=== PATIENT | female | born 1960 | race Caucasian/White ===

== ENCOUNTER 2020-04-04 16:36 | Outpatient (CLI) | payer OTHER, SELFPAY ==
--- NOTE | ~2020-04-04 | XR_ITS ---
EXAMINATION: XR knee RT 3V DATE: 04/04/2020 16:56 INDICATION: Right knee pain. TECHNIQUE: 3 views of right knee were obtained. COMPARISON: None. FINDINGS: Bone alignment is normal. No fracture. There is mild osteoarthritis of medial and patellofe moral compartments characterized by tiny marginal osteophytes. There is a small knee joint effusion. IMPRESSION: 1. Mild right knee osteoarthritis. 2. Small right knee joint effusion. Reviewed, dictated and finalized at location E.
== END 2020-04-04 16:37 | disposition home or self-care (01) ==
PROVIDERS: PCP Internal Medicine; Visit Provider Nurse Practitioner
DX: M25.561 Pain in right knee (principal); M17.11 Unilateral primary osteoarthritis, right knee; M25.461 Effusion, right knee
CPT/HCPCS: 73562

== ENCOUNTER 2020-05-30 16:34 | Outpatient (CLI) | payer OTHER, SELFPAY ==
--- NOTE | ~2020-05-30 | MR_ITS ---
EXAMINATION: MR knee RT wo con DATE: 05/30/2020 17:34 INDICATION: Medial meniscal tear presenting with right knee pain. TECHNIQUE: Magnetic resonance imaging (MRI) of the right knee was performed without intravenous contr ast. Sequences included coronal PD-weighted FSE, coronal PD-weighted FS FSE, sagittal T2-weighted FS E, sagittal PD-weighted FS FSE and axial PD weighted fat saturated FSE. COMPARISON: None. FINDINGS: Medial compartment: Medial meniscus is normal. Mild cartilage loss with chondral surface regularity along the anterior to central weightbearing medial femoral condyle and anterior half of the medial tibial plateau. Lateral compartment: Lateral meniscus is normal. Articular cartilage is normal. Patellofemoral compartment: Deep chondral fissuring at the central aspect of the medial patellar facet and at the inferior aspect of the medial trochlea. Ligaments and tendons: Thickening and mild increased signal at the proximal medial collateral ligament consistent with parti al tear. There is small amount of edema in the overlying fat although less than would be expected for an acute injury suggesting this is either subacute or chronic with coincidental edema. The fibular c ollateral ligament complex is normal. Mild tendinopathy of the distal quadriceps and proximal patella r tendons with moderate size associated patellar enthesophytes. The visualized medial and lateral ham string tendons as well as the iliotibial band are normal. Fluid: Minimal right knee joint effusion. No loose osteochondral bodies identified. Prepatellar subcutaneou s edema without discrete bursal fluid collection. Osseous/other: Normal marrow signal. No fracture or pathologic marrow replacing process. IMPRESSION: 1. Mild osteoarthritis with high-grade chondromalacia at the medial side of the patellofemoral compar tment and moderate grade chondromalacia in the medial compartment. 2. Age-indeterminate partial tear of the proximal medial collateral ligament most likely either subac sun'aq or chronic. Reviewed, dictated and finalized at location A. IMPRESSION: 1. 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 2. Age-indeterminate partial tear of the proximal medial collateral ligament mo st likely either subacute or chronic.
== END 2020-05-30 16:35 | disposition home or self-care (01) ==
PROVIDERS: PCP Internal Medicine; Visit Provider Orthopaedic Surgery
DX: S83.241A Other tear of medial meniscus, current injury, right knee, initial encounter (principal); M17.11 Unilateral primary osteoarthritis, right knee
CPT/HCPCS: 73721

== ENCOUNTER 2020-10-05 15:34 | Outpatient (CLI) | payer OTHER, SELFPAY ==
--- NOTE | ~2020-10-05 | MR_ITS ---
EXAMINATION: MR cervical spine wo con DATE: 10/05/2020 16:20 INDICATION: Cervical radiculopathy. TECHNIQUE: Magnetic resonance imaging (MRI) of the cervical spine was performed without intravenous c ontrast. Sequences included sagittal T2-weighted FSE, sagittal STIR FSE, sagittal T1-weighted FSE, ax ial MERGE, and axial T2-weighted FSE. COMPARISON: None FINDINGS: There is kyphosis of cervical spine. Vertebral body heights are normal. There is mildly dec reased disc height at C4-C5 and C5-C6. The spinal cord signal intensity is normal. There is a 2.1 cm nodule in right thyroid lobe. The following disc levels are specifically discussed: C2-C3: The disc does not extend beyond the endplate margin. There is mild left uncovertebral joint os teoarthritis. There is mild bilateral facet joint osteoarthritis. There is mild left neural foraminal stenosis. There is no central canal stenosis. C3-C4: The disc is bulging. There is mild bilateral uncovertebral joint osteoarthritis. There is mild bilateral facet joint osteoarthritis. There is mild bilateral neural foraminal stenosis. There is mi ld central canal stenosis with ventral indentation of spinal cord. C4-C5: The disc is bulging. There is severe bilateral uncovertebral joint osteoarthritis. There is se diogenes bilateral facet joint osteoarthritis. There is moderate right and mild left neural foraminal kendra nosis. There is mild central canal stenosis with ventral indentation of spinal cord. C5-C6: The disc is bulging. There is severe bilateral uncovertebral joint osteoarthritis. There is mi ld bilateral facet joint osteoarthritis. There is moderate right and mild left neural foraminal steno sis. There is moderate central canal stenosis with ventral and dorsal indentation of spinal cord. C6-C7: The disc is bulging. There is mild bilateral uncovertebral joint osteoarthritis. There is mild bilateral facet joint osteoarthritis. There is mild left neural foraminal stenosis. There is mild ce ntral canal stenosis. C7-T1: The disc does not extend beyond the endplate margin. There is no uncovertebral joint osteoarth ritis. There is mild bilateral facet joint osteoarthritis. There is no neural foraminal stenosis. The re is no central canal stenosis. IMPRESSION: 1. Moderate cervical spondylosis. Reviewed, dictated and finalized at location B. [employer]UDENT [employer]
== END 2020-10-05 15:35 | disposition home or self-care (01) ==
PROVIDERS: PCP Internal Medicine; Visit Provider Nurse Practitioner
DX: M47.23 Other spondylosis with radiculopathy, cervicothoracic region (principal); M48.03 Spinal stenosis, cervicothoracic region
CPT/HCPCS: 72141

== ENCOUNTER 2021-09-07 17:01 | Outpatient (CLI) | payer OTHER, SELFPAY ==
--- NOTE | ~2021-09-07 | XR_ITS ---
EXAMINATION: XR chest 2V 09/07/2021 17:13 INDICATION: Cough PROCEDURE: 2 view chest COMPARISON: 02/01/2021 FINDINGS: The lungs are clear. The cardiomediastinal silhouette is within normal limits. There are no pleural effusions. There is no pneumothorax suspected. IMPRESSION: 1: NO ACUTE CARDIOPULMONARY DISEASE. Reviewed, dictated and finalized at location A. [employer] SAL[employer] DIRECTOR
== END 2021-09-07 17:02 ==
PROVIDERS: PCP Internal Medicine; Visit Provider Internal Medicine
DX: R05.9 Cough, unspecified (principal)
CPT/HCPCS: 71046

== ENCOUNTER 2023-05-10 10:43 | Outpatient (CLI) | payer OTHER, SELFPAY ==
--- NOTE | 2023-05-10 | ECG_ITS ---
Measurements Intervals [place] Rate: 85 P: 35 CO: 136 QRS: -65 QRSD: 122 T: -3 QT: 378 QTc: 450 Interpretive Statements SINUS RHYTHM RIGHT BUNDLE BRANCH BLOCK LEFT ANTERIOR FASCICULAR BLOCK BASELINE WANDER- I, III, AVR, AVL, AVF ABNORMAL ECG COMPARED TO ECG 07/21/2019 13:33:33 NO SIGNIFICANT CHANGES Electronically Signed On 05-10-2023 12:44:05 CDT by Rihc Overton D.O.
[2023-05-10 11:24] LABS: Anion Gap 6 mmol/L (8-16); Blood Urea Nitrogen 16 mg/dL (7-17); Calcium 9.1 mg/dL (8.4-10.2); Carbon Dioxide 31 mmol/L (22-30); Chloride 102 mmol/L (98-107); Estimated Glomerular Filt Rate 56; Glucose 169 mg/dL (65-110); Potassium 4.1 mmol/L (3.4-5.0); Sodium 139 mmol/L (137-145)
== END 2023-05-10 10:44 | disposition home or self-care (01) ==
PROVIDERS: Visit Provider Orthopaedic Surgery
DX: Z01.818 Encounter for other preprocedural examination (principal); I45.2 Bifascicular block
CPT/HCPCS: 36415; 80048; 93005

== ENCOUNTER 2023-06-24 08:43 | Outpatient (CLI) | payer OTHER, SELFPAY ==
[2023-06-24 13:44] LABS: Basophils Percent Auto 0.5 % (0.2-1.2); Eosinophils Absolute Auto 0.1 K/mm3 (0-0.3); Eosinophils Percent Auto 1.3 % (0-4.4); Hematocrit 41.8 % (37.0-47.0); Hemoglobin 13.4 g/dL (12.0-15.0); Immature Granulocyte Absolute 0.01 K/mm3 (0.00-0.031); Immature Granulocyte Percent A 0.2 % (0-0.5); Lymphocytes Absolute Auto 2.16 K/mm3 (0.9-3.2); Lymphocytes Percent Auto 36.4 % (18.3-44.2); Mean Corpuscular HGB Conc 32.1 g/dl (32-36); Mean Corpuscular Hemoglobin 28.3 pg (26-34); Mean Corpuscular Volume 88.2 fl (80-100); Mean Platelet Volume 9.5 fl (7.4-10.4); Monocytes Absolute Auto 0.7 K/mm3 (0.1-0.6); Monocytes Percent Auto 11.5 % (2.6-8.5); Neutrophils Percent Auto 50.1 % (45.5-73.1); Platelet Count Result 294 k/mm3 (150-375); Red Blood Count 4.74 M/mm3 (4.2-5.4); Red Cell Distribution Width 13.6 % (11.5-14.5); White Blood Count 5.9 K/mm3 (4.5-10.0)
[2023-06-24 14:33] LABS: Creatinine Urine 269.3 mg/dL
[2023-06-24 14:36] LABS: Microalbumin Urine Random 10.9 mg/L (0-16.7)
[2023-06-24 16:27] LABS: Alanine Aminotransferase 17 U/L (6-35); Albumin Level 4.1 g/dL (3.5-5.1); Alkaline Phosphatase 109 U/L (38-126); Anion Gap 6 mmol/L (8-16); Aspartate Amino Transferase 26 U/L (14-36); Bilirubin,Total 0.6 mg/dL (0.2-1.3); Blood Urea Nitrogen 11 mg/dL (7-17); Calcium 8.6 mg/dL (8.4-10.2); Carbon Dioxide 29 mmol/L (22-30); Chloride 104 mmol/L (98-107); Cholesterol 183 mg/dL (0-200); Estimated Glomerular Filt Rate > 60; Glucose 117 mg/dL (65-110); HDL Direct 38 mg/dL; Potassium 4.2 mmol/L (3.4-5.0); Sodium 139 mmol/L (137-145); Triglycerides 65 mg/dL (<150)
[2023-06-24 16:38] LABS: LDL Cholesterol Direct 115 mg/dL
[2023-06-24 17:44] LABS: Vitamin D 25 Hydroxy 27.6 ng/mL
[2023-06-24 18:29] LABS: Hemoglobin A1C 6.5 % (<5.7)
== END 2023-06-24 08:44 | disposition home or self-care (01) ==
LOC: ANHGOSHLAB 08:45
PROVIDERS: PCP Internal Medicine; Visit Provider Nurse Practitioner
DX: E11.9 Type 2 diabetes mellitus without complications (principal); F41.9 Anxiety disorder, unspecified; Z78.0 Asymptomatic menopausal state
CPT/HCPCS: 36415; 80053; 80061; 82043; 82306; 83036; 84443; 85025

== ENCOUNTER 2023-10-08 16:54 | Outpatient (CLI) | payer OTHER, SELFPAY ==
[2023-10-08 17:50] LABS: Alanine Aminotransferase 16 U/L (6-35); Albumin Level 4.3 g/dL (3.5-5.1); Alkaline Phosphatase 113 U/L (38-126); Anion Gap 9 mmol/L (8-16); Aspartate Amino Transferase 21 U/L (14-36); Bilirubin,Total 0.8 mg/dL (0.2-1.3); Blood Urea Nitrogen 11 mg/dL (7-17); Calcium 8.8 mg/dL (8.4-10.2); Carbon Dioxide 27 mmol/L (22-30); Chloride 103 mmol/L (98-107); Cholesterol 142 mg/dL (0-200); Estimated Glomerular Filt Rate > 60; Glucose 116 mg/dL (65-110); HDL Direct 36 mg/dL; Potassium 3.8 mmol/L (3.4-5.0); Sodium 139 mmol/L (137-145); Triglycerides 74 mg/dL (<150)
[2023-10-08 17:55] LABS: MALB Creatinine Ratio 5.5 mg/g (0-30); Microalbumin Urine Random 16.7 mg/L (0-16.7)
[2023-10-08 17:55] LABS: Hemoglobin A1C 7.2 % (<5.7)
[2023-10-08 18:01] LABS: LDL Cholesterol Direct 78 mg/dL
[2023-10-08 18:06] LABS: Vitamin D 25 Hydroxy 14.5 ng/mL
== END 2023-10-08 16:55 | disposition home or self-care (01) ==
LOC: ANHLAB 16:55
PROVIDERS: PCP Internal Medicine; Visit Provider Nurse Practitioner
DX: E55.9 Vitamin D deficiency, unspecified (principal); E11.9 Type 2 diabetes mellitus without complications
CPT/HCPCS: 36415; 80053; 80061; 82043; 82306; 83036

== ENCOUNTER 2024-01-11 07:59 | Outpatient (CLI) | payer OTHER, SELFPAY ==
[2024-01-11 09:46] LABS: Vitamin D 25 Hydroxy 76.7 ng/mL
[2024-01-11 10:38] LABS: Hemoglobin A1C 7.4 % (<5.7)
== END 2024-01-11 08:00 | disposition home or self-care (01) ==
LOC: ANHLAB 08:00
PROVIDERS: PCP Internal Medicine; Visit Provider Nurse Practitioner
DX: E55.9 Vitamin D deficiency, unspecified (principal); E11.9 Type 2 diabetes mellitus without complications
CPT/HCPCS: 36415; 82306; 83036

== ENCOUNTER 2024-04-06 10:30 | Outpatient (CLI) | payer OTHER, SELFPAY ==
--- NOTE | ~2024-04-06 | MR_ITS ---
MRI of the right knee Clinical history: Lateral meniscus tear Technique: Coronal proton density and proton density-weighted images, sagittal proton-density and T2 fat-sat images, and axial proton-density fat-saturated images were acquired. Findings: Anterior and posterior cruciate ligaments are intact. Medial collateral ligament and the la teral collateral ligament complex are intact. Popliteus tendon is intact. There is a large radial tear at the posterior root of the medial meniscus. No lateral meniscal tear e vident. There is diffuse moderate to high-grade chondral thinning in the medial compartment. Remaining articu lar cartilage is relatively well-preserved. Bone marrow signals are intact. Extensor mechanism is intact. There is minimal joint effusion. No Camargo's cyst. Impression: Radial tear at the posterior root of the medial meniscus. Diffuse moderate to high-grade chondromalacia of the medial compartment. No lateral meniscal tear seen. Reviewed, dictated and finalized at [facility]. Impression: Radial tear at the posterior root of the medial meniscus. Diffuse moderate to high-grade chondromalacia of the medial compartment. No lateral meniscal tear seen.
== END 2024-04-06 10:31 | disposition home or self-care (01) ==
PROVIDERS: PCP Internal Medicine; Visit Provider Orthopaedic Surgery
DX: S83.281A Other tear of lateral meniscus, current injury, right knee, initial encounter (principal); X58.XXXA Exposure to other specified factors, initial encounter
CPT/HCPCS: 73721

== ENCOUNTER 2024-04-11 08:21 | Outpatient (CLI) | payer OTHER, SELFPAY ==
[2024-04-11 09:57] LABS: Anion Gap 7 mmol/L (4-12); Blood Urea Nitrogen 14 mg/dL (7-17); Calcium 8.7 mg/dL (8.4-10.2); Carbon Dioxide 26 mmol/L (22-30); Chloride 107 mmol/L (98-107); Estimated Glomerular Filt Rate 56; Glucose 104 mg/dL (65-110); Potassium 4.2 mmol/L (3.4-5.0); Sodium 140 mmol/L (137-145)
[2024-04-11 10:13] LABS: Creatinine Urine 115.8 mg/dL; Hemoglobin A1C 6.2 % (<5.7)
[2024-04-11 10:24] LABS: MALB Creatinine Ratio < 5.2 mg/g (0-30); Microalbumin Urine Random < 6.0 mg/L (0-16.7)
== END 2024-04-11 08:22 | disposition home or self-care (01) ==
LOC: ANHLAB 08:22
PROVIDERS: PCP Internal Medicine; Visit Provider Nurse Practitioner
DX: E11.9 Type 2 diabetes mellitus without complications (principal)
CPT/HCPCS: 36415; 80048; 82043; 83036

== ENCOUNTER 2024-05-20 12:59 | Outpatient (CLI) | payer OTHER, SELFPAY ==
--- NOTE | 2024-05-20 13:00 | ECG_ITS ---
Test Date: 2024-05-20 13:25:44 Measurements Intervals [place] Rate: 70 P: -12 NM: 117 QRS: -59 QRSD: 129 T: -11 QT: 436 QTc: 472 Interpretive Statements SINUS RHYTHM WITH SHORT NM INTERVAL LEFT AXIS DEVIATION RIGHT BUNDLE BRANCH BLOCK BASELINE ARTIFACT- I, II, III, AVR, AVL, AVF ABNORMAL ECG No previous ECG available for comparison Electronically Signed On 05-20-2024 13:31:10 CDT by Rich Overton D.O.
== END 2024-05-20 13:00 | disposition home or self-care (01) ==
PROVIDERS: PCP Nurse Practitioner; Visit Provider Orthopaedic Surgery
DX: Z01.818 Encounter for other preprocedural examination (principal); I10 Essential (primary) hypertension; I45.10 Unspecified right bundle-branch block; R94.31 Abnormal electrocardiogram [ECG] [EKG]
CPT/HCPCS: 93005

== ENCOUNTER 2024-05-25 00:32 | Day surgery (SDC) | payer OTHER, SELFPAY ==
[2024-05-20 08:31] VITALS: BMI 38.5
--- NOTE | 2024-05-20 08:40 | PC.NURSE ---
Report to the Outpatient Waiting Room, entrance under the green pavilion located off [facility], at time _0830_ on date _[id number]_. Planned Procedure Time: _1030_. Time changes happen often and if your time is changed the preop area will call you the afternoon before. - You and your visitor will be asked to self-screen and do not enter if you have any COVID symptoms. - A mask is optional within the hospital at this time. Patients may have clear liquids (water, carbonated beverages, clear teas, apple juice) until 3 hours prior to surgery with a maximum of 20 ounces. - No food from midnight until time of surgery Take the following medications with a SIP of water the morning of surgery: ____None DO NOT STOP ANY OF YOUR OTHER PRESCRIPTION MEDICATIONS PRIOR TO SURGERY ?EXCEPT THE FOLLOWING Medications to discontinue per physician Took last dose of [place]jaro and Vitamin D3 30-04-3414 Please no make-up, nail slovenian, hairspray, perfume, deodorant, or body powder the day of surgery. No jewelry (including any body piercings) or valuables the day of surgery, leave them at home. Please take a shower or bath the night before, or the morning of, surgery with an antibacterial soap. Wear comfortable, loose fitting clothing. - Jewelry must be removed prior to entering the operating room. Rings and piercings that are not removed may be cut off. - The hospital will not accept responsibility for valuables. - Please leave all valuables, including medications, at home the day of surgery. If you are going home after surgery, a licensed taxi truck driver must drive you home. - NO public transportation without another adult if you receive anesthesia. - We recommend that an adult stay with you for 24 hours following discharge. - We also recommend that you do not drive, make important decision, drink alcoholic beverages, or take any drugs that were not prescribed by your health care provider for at least 24 hours after your discharge time. Follow any additional instructions given to you from your surgeon. If you or anyone in your household have experienced Covid symptoms in the past week, please notify your surgeon or the nurse liaison at the phone number below for possible testing. Telephone instructions given to __Radha___and asked if any additional questions and then verbalized understanding. Patient advised to call surgeon office or pre surgery nurse liaison [phone] if any additional questions.
[2024-05-25] VITALS (10 sets, daily range): BP systolic 123–159; BP diastolic 57–88; PULSE 68–77; RESP 13–17; TEMP 36.3–36.4; O2SAT 94–100
--- NOTE | 2024-05-25 07:12 | PM.IMHP ---
H&P: HPI History of Present Illness Date/Time: 05/25/24 07:12 Chief Complaint: Patient presents the catching locking and pain of the right knee. She has a positive MRI scan that shows meniscal pathology. She would like to proceed without the scopic intervention of her right knee partial meniscectomy proceed as indicated. Review of Systems Musculoskeletal: Musculoskeletal: Reports arthralgias, Reports joint swelling and Reports stiffness [facility] Past Medical History Medical History Asthma Cervical radiculopathy Depression Diabetes mellitus H/O one miscarriage Hypertension Nerve damage Repair of arm 2007 Post-menopausal Tendonitis Ulnar neuropathy Surgical History Surgical History H/O section 1982 H/O right knee surgery History of cholecystectomy History of tonsillectomy 2004 Status post arthroscopic partial medial meniscectomy (~07/24/19) Left knee Family History Family History Mother Hypertension Family history of diabetes mellitus in first degree relative Esophageal cancer Father Family history of heart disease in male family member before age 55 Patient's father is Sibling Family history of heart disease in male family member before age 55 Other Diabetes mellitus Family history of congenital heart disease Family history of malignant neoplasm Social History Social History Smoking status: Never smoker Smoking end date: 10/28/79 Alcohol intake: never Substance use: never Substance use type: does not use Do You Feel Safe in your Home?: Yes Lack of Transportation: No Lack of Food: Never True Current Housing: I Have Housing Concerned About Future Housing: No Difficulty Paying Gas/Electric Bills: No Difficulty Paying for Meds: No Currently Unemployed: No Education: High School Diploma/GED Difficulty w/ Childcare or Family Care: No Living arrangements: with family Occupation/Education: occupation 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 Gender identity (if verbalized by the patient): Female Spiritual care concerns: No Meds Home Medications and Allergies Home Medications Medication Instructions Recorded Confirmed Type omeprazole 20 mg capsule,delayed 20 mg PO DAILY 05/30/23 05/20/24 History release atorvastatin 10 mg tablet 10 mg PO QHS #90 tabs 12/23/23 05/20/24 Rx fluticasone propionate 50 1 spray intranasal DAILY PRN 01/15/24 05/20/24 History mcg/actuation nasal Allergy Symptoms spray,suspension nystatin 100,000 unit/gram topical 1 applic topical BID #30 grams 01/15/24 05/20/24 Rx powder cholecalciferol (vitamin D3) 1,250 1,250 mcg PO WEEKLY #8 caps 02/18/24 05/20/24 Rx mcg (50,000 unit) capsule losartan 100 mg tablet 100 mg PO DAILY #90 tabs 02/18/24 05/20/24 Rx tirzepatide 5 mg/0.5 mL 5 mg (0.5 mL) subcut WEEKLY #2 mL 04/17/24 05/20/24 Rx subcutaneous pen injector (Mounjaro) sertraline 100 mg tablet 100 mg PO DAILY #90 tabs 05/19/24 05/20/24 Rx mupirocin 2 % topical ointment 1 applic topical BID PRN sores 05/20/24 05/20/24 History Allergies Allergy/AdvReac Type Severity Reaction Status Date / Time No Known Allergies Allergy Verified 05/20/24 08:29 Exam Narrative: On exam she is tender palpation medially. She has catching locking and pain in the right knee. With mechanical type symptoms. Neurologically she is intact. She walks with a mildly antalgic gait. Radiology Reports: Comments: Patient: Radha Grant MRI of the right knee Clinical history: Lateral meniscus tear Technique: Coronal proton density and proton density-weighted images, sagittal proton-density and T2 fat-sat images, and axial p
[2024-05-25] MEDS: ACETAMINOPHEN 500 MG TABLET 1000 MG PO (09:00)
[2024-05-25] MEDS: LACTATED RINGERS 1,000 ML 30 ML IV CONT ×2 (09:15→10:59)
--- NOTE | 2024-05-25 09:23 | WPDANESEPPF ---
Anes - Initial Pre Proc Eval Procedure: Operation Date: 05/25/24 10:30 Proposed Procedures p Right Knee Arthroscopy with Partial Medial Meniscectomy, Proceed As Indicated - Giovani Mehta MD Date/Time: 05/25/24 09:23 Surgeon: Giovani Mehta MD Pre Op Diagnosis: Medial Meniscus Tear Rt Knee Patient Data Age: 64 Gender: F Height: 1.63 m Weight: 101.8 kg Allergies Allergy/AdvReac Type Severity Reaction Status Date / Time No Known Allergies Allergy Verified 05/25/24 09:22 Home Medications Medication Instructions Recorded Confirmed Type omeprazole 20 mg capsule,delayed 20 mg PO DAILY 05/30/23 05/25/24 History release atorvastatin 10 mg tablet 10 mg PO QHS #90 tabs 12/23/23 05/25/24 Rx fluticasone propionate 50 1 spray intranasal DAILY PRN 01/15/24 05/25/24 History mcg/actuation nasal Allergy Symptoms spray,suspension nystatin 100,000 unit/gram topical 1 applic topical BID #30 grams 01/15/24 05/20/24 Rx powder cholecalciferol (vitamin D3) 1,250 1,250 mcg PO WEEKLY #8 caps 02/18/24 05/20/24 Rx mcg (50,000 unit) capsule losartan 100 mg tablet 100 mg PO DAILY #90 tabs 02/18/24 05/25/24 Rx tirzepatide 5 mg/0.5 mL 5 mg (0.5 mL) subcut WEEKLY #2 mL 04/17/24 05/20/24 Rx subcutaneous pen injector (Mounjaro) sertraline 100 mg tablet 100 mg PO DAILY #90 tabs 05/19/24 05/25/24 Rx mupirocin 2 % topical ointment 1 applic topical BID PRN sores 05/20/24 05/20/24 History Patient hx anesthesia problems: none Family hx anesthesia problems: none Results Review: All pre-operative results and documents have been reviewed as part of the pre-operative evaluation. [facility] Past Medical History Medical History (Updated 05/25/24 @ 09:23 by Edy Padilla DO) Asthma Cervical radiculopathy Depression Diabetes mellitus H/O one miscarriage Hyperlipidemia Hypertension Nerve damage Repair of arm 2007 Post-menopausal Tendonitis Ulnar neuropathy Surgical History Surgical History H/O section 1982 H/O right knee surgery History of cholecystectomy History of tonsillectomy 2004 Status post arthroscopic partial medial meniscectomy (~07/24/19) Left knee Family History Family History Mother Hypertension Family history of diabetes mellitus in first degree relative Esophageal cancer Father Family history of heart disease in male family member before age 55 Patient's father is Sibling Family history of heart disease in male family member before age 55 Other Diabetes mellitus Family history of congenital heart disease Family history of malignant neoplasm Social History Social History Smoking status: Never smoker Smoking end date: 10/28/79 Alcohol intake: never Substance use: never Substance use type: does not use Do You Feel Safe in your Home?: Yes Lack of Transportation: No Lack of Food: Never True Current Housing: I Have Housing Concerned About Future Housing: No Difficulty Paying Gas/Electric Bills: No Difficulty Paying for Meds: No Currently Unemployed: No Education: High School Diploma/GED Difficulty w/ Childcare or Family Care: No Living arrangements: with family Occupation/Education: occupation 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
--- NOTE | 2024-05-25 09:25 | WPDHPUPDATE1 ---
History and Physical Update Update Date/Time: 05/25/24 09:25 History and Physical has been reviewed, including an updated exam of the patient. There are NO changes in the patient's condition. Risks, benefits, and alternatives have been discussed and questions answered. Patient agrees to proceed with procedure.
[2024-05-25] MEDS: KETOROLAC 15 MG/ML VIAL (*BKC) IV PUSH (10:05)
[2024-05-25] MEDS: SCOPOLAMINE 1 MG PATCH 1 PATCH TRANSDERM (10:06)
[2024-05-25] MEDS: ceFAZolin 2 GM/D5W 50 ML 2 GM/50 ML BAG IVPB (10:15)
--- NOTE | 2024-05-25 10:50 | P.OP_ITS ---
Procedure Note - Detailed Date of Procedure 05/25/24 Pre-op Diagnosis Medial Meniscus Tear Rt Knee Post-op Diagnosis Same Procedure Performed Arthroscopy, Partial Meniscectomy Surgeon Giovani Mehta MD Anesthesia General Description of Procedure Patient brought to operating room # 8. An anesthetic was administered. The knee was sterilely prepped and draped in the usual manner. Standard portals were used. Superior medial portal was used for the outflow cannula, inferior lateral portal was used for the scope, inferior medial portal was used for the instruments. Arthroscopy was performed, the patellar femoral joint degenerative changes. The medial compartment showed a radial tear posteriorly. The lateral compartment showed fraying. The ACL was intact. Using baskets and vivek the meniscal tear was trimmed back to a stable base so the nothing further could be pulled into the joint. The plica wass debrided back. Any loose or delaminated fragments were gently trimmed to a stable base. At this point the instruments were withdrawn, sutures placed and patient left the operating room in sati sfactory condition. Estimated Blood Loss 5 Drains No Packing No Pathology None sent Complications No immediate complications Condition Stable Disposition PACU [facility] Billing Surgery - Charge Forward: Surgery Billing ([id number] Arthroscopy Partial Meniscectomy)
[2024-05-25] MEDS: fentaNYL CITRATE INJ (*CRX) 100 MCG/2 ML VIAL 25 MCG IV PUSH ×3 (11:16→11:46)
[2024-05-25] MEDS: oxyCODONE HCL (*CRX) 5 MG TAB IR PO (12:48)
== END 2024-05-25 13:27 | disposition home or self-care (01) ==
PROVIDERS: PCP Nurse Practitioner; Visit Provider Orthopaedic Surgery
PROC: (CPT 29870; principal; 2024-05-25 10:30)
DX: S83.241A Other tear of medial meniscus, current injury, right knee, initial encounter (principal); M94.261 Chondromalacia, right knee; I10 Essential (primary) hypertension; E11.9 Type 2 diabetes mellitus without complications; E78.2 Mixed hyperlipidemia; J45.909 Unspecified asthma, uncomplicated; F32.A Depression, unspecified; E66.9 Obesity, unspecified; Z68.38 Body mass index [BMI] 38.0-38.9, adult; Z79.85 Long-term (current) use of injectable non-insulin antidiabetic drugs; Z98.890 Other specified postprocedural states; Z90.49 Acquired absence of other specified parts of digestive tract; Z80.0 Family history of malignant neoplasm of digestive organs; Z82.49 Family history of ischemic heart disease and other diseases of the circulatory system; X58.XXXA Exposure to other specified factors, initial encounter
CPT/HCPCS: 29881; A9270; J0690; J1100; J1885; J2405; J2704; J3010; J7120

== ENCOUNTER 2024-09-26 09:04 | Outpatient (CLI) | payer OTHER, SELFPAY ==
[2024-09-26 09:23] LABS: Basophils Percent Auto 0.4 % (0.2-1.2); Eosinophils Absolute Auto 0.1 K/mm3 (0-0.3); Eosinophils Percent Auto 1.7 % (0-4.4); Hematocrit 42.7 % (37.0-47.0); Hemoglobin 13.7 g/dL (12.0-15.0); Immature Granulocyte Absolute 0.02 K/mm3 (0.00-0.031); Immature Granulocyte Percent A 0.4 % (0-0.5); Lymphocytes Absolute Auto 1.96 K/mm3 (0.9-3.2); Lymphocytes Percent Auto 36.4 % (18.3-44.2); Mean Corpuscular HGB Conc 32.1 g/dl (32-36); Mean Corpuscular Hemoglobin 27.7 pg (26-34); Mean Corpuscular Volume 86.3 fl (80-100); Mean Platelet Volume 9.1 fl (7.4-10.4); Monocytes Absolute Auto 0.6 K/mm3 (0.1-0.6); Monocytes Percent Auto 10.6 % (2.6-8.5); Neutrophils Absolute Auto 2.7 K/mm3 (1.3-6.7); Neutrophils Percent Auto 50.5 % (45.5-73.1); Platelet Count Result 321 k/mm3 (150-375); Red Blood Count 4.95 M/mm3 (4.2-5.4); Red Cell Distribution Width 14.1 % (11.5-14.5); White Blood Count 5.4 K/mm3 (4.5-10.0)
[2024-09-26 09:54] LABS: Alanine Aminotransferase 13 U/L (6-35); Albumin Level 4.4 g/dL (3.5-5.1); Alkaline Phosphatase 105 U/L (38-126); Anion Gap 6 mmol/L (4-12); Aspartate Amino Transferase 19 U/L (14-36); Bilirubin,Total 0.7 mg/dL (0.2-1.3); Blood Urea Nitrogen 8 mg/dL (7-17); Calcium 9.1 mg/dL (8.4-10.2); Carbon Dioxide 29 mmol/L (22-30); Chloride 104 mmol/L (98-107); Cholesterol 170 mg/dL (0-200); Estimated Glomerular Filt Rate > 60; Glucose 102 mg/dL (65-110); HDL Direct 42 mg/dL; Potassium 4.3 mmol/L (3.4-5.0); Sodium 139 mmol/L (137-145); Triglycerides 103 mg/dL (<150)
[2024-09-26 09:55] LABS: Hemoglobin A1C 5.6 % (<5.7)
[2024-09-26 10:00] LABS: Creatinine Urine 148.1 mg/dL
[2024-09-26 10:06] LABS: MALB Creatinine Ratio 9.2 mg/g (0-30); Microalbumin Urine Random 13.6 mg/L (0-16.7)
[2024-09-26 10:06] LABS: LDL Cholesterol Direct 76 mg/dL
[2024-09-26 10:17] LABS: Vitamin D 25 Hydroxy 35.8 ng/mL
== END 2024-09-26 09:05 | disposition home or self-care (01) ==
PROVIDERS: PCP Nurse Practitioner; Visit Provider Nurse Practitioner
DX: E11.9 Type 2 diabetes mellitus without complications (principal); E55.9 Vitamin D deficiency, unspecified
CPT/HCPCS: 36415; 80053; 80061; 82043; 82306; 83036; 85025

== ENCOUNTER 2024-11-02 20:20 | Emergency (ER) | payer OTHER, SELFPAY ==
[2024-11-02 20:42] VITALS: BP 119/79; PULSE 98; RESP 18; TEMP 36.4; O2SAT 98
--- NOTE | 2024-11-02 20:45 | ECG_ITS ---
Test Date: 2024-11-02 20:53:06 Measurements Intervals [place] Rate: 101 P: 27 NE: 137 QRS: -82 QRSD: 128 T: -5 QT: 371 QTc: 482 Interpretive Statements SINUS TACHYCARDIA RIGHT BUNDLE BRANCH BLOCK [120+ ms QRS DURATION, UPRIGHT V1, 40+ ms S IN I/aVL/V4/V5/V6] LEFT ANTERIOR FASCICULAR BLOCK [QRS AXIS <= -45, QR IN I, RS IN II] Compared to ECG 05/20/2024 13:25:44 SINUS TACHYCARDIA NOW PRESENT Electronically Signed On 11-04-2024 17:17:52 OYSTER T[employer]ER by Akanksha Lerma M.D.
[2024-11-02 21:39] LABS: Influenza A QL RT-PCR Negative (Negative); Influenza B QL RT-PCR Negative (Negative); RSV RNA, RT-PCR Negative (Negative); SARS-CoV-2 RNA PCR Negative (Negative)
[2024-11-02 23:05] LABS: Strep Group A RT-PCR NOT DETECTED (Negative)
[2024-11-02] MEDS: SODIUM CHLORIDE 0.9% IV 1,000 ML 999 ML IV CONT (23:25)
[2024-11-02 23:37] LABS: Basophils Percent Auto 0.5 % (0.2-1.2); Eosinophils Percent Auto 0.5 % (0-4.4); Hematocrit 42.4 % (37.0-47.0); Hemoglobin 14.6 g/dL (12.0-15.0); Immature Granulocyte Absolute 0.03 K/mm3 (0.00-0.031); Immature Granulocyte Percent A 0.4 % (0-0.5); Lymphocytes Absolute Auto 2.57 K/mm3 (0.9-3.2); Mean Corpuscular HGB Conc 34.4 g/dl (32-36); Mean Corpuscular Volume 81.2 fl (80-100); Mean Platelet Volume 9.3 fl (7.4-10.4); Monocytes Absolute Auto 0.8 K/mm3 (0.1-0.6); Monocytes Percent Auto 9.5 % (2.6-8.5); Neutrophils Absolute Auto 4.8 K/mm3 (1.3-6.7); Neutrophils Percent Auto 58.1 % (45.5-73.1); Platelet Count Result 320 k/mm3 (150-375); Red Blood Count 5.22 M/mm3 (4.2-5.4); Red Cell Distribution Width 13.6 % (11.5-14.5); White Blood Count 8.3 K/mm3 (4.5-10.0)
[2024-11-02 23:47] LABS: Alanine Aminotransferase 17 U/L (6-35); Albumin Level 4.3 g/dL (3.5-5.1); Alkaline Phosphatase 101 U/L (38-126); Anion Gap 9 mmol/L (4-12); Aspartate Amino Transferase 18 U/L (14-36); Bilirubin,Total 0.9 mg/dL (0.2-1.3); Blood Urea Nitrogen 14 mg/dL (7-17); Calcium 9.3 mg/dL (8.4-10.2); Carbon Dioxide 28 mmol/L (22-30); Chloride 100 mmol/L (98-107); Estimated CRCL calculation 63 ml/min; Estimated Glomerular Filt Rate > 60; Glucose 103 mg/dL (65-110); Potassium 3.5 mmol/L (3.4-5.0); Sodium 137 mmol/L (137-145)
[2024-11-02 23:54] LABS: Add Urine Microscopic? YES; Appearance Urine Cloudy (Clear); Bacteria Urine 1+ /hpf; Bilirubin Urine 2+ (Negative); Blood Urine Negative (Negative); Calcium Oxalate Crystals Urine Present /hpf; Color Urine Dark Yellow (Yellow); Glucose Urine UA Negative (Negative); Ketones Urine 1+ mg/dL (Negative); Leukocyte Esterase Ur 3+ LEU/UL (Negative); Need Manual Microscopic Reviewed; Nitrate Urine Negative (Negative); Protein Urine Trace mg/dL (Negative); Specific Grav Ur 1.031 (1.001-1.035); Squamous Epithelial Cell Urine Moderate /hpf (Few); WBC Urine 21-50 /hpf (0-3)
[2024-11-03 00:28] LABS: Procalcitonin 0.1 ng/mL
--- NOTE | 2024-11-03 00:32 | ED.GENADULT ---
HPI - General Adult General Chief complaint: Dizziness Stated complaint: Dizziness Time Seen by Provider: 11/02/24 22:56 History of Present Illness HPI narrative: Patient is a 64-year-old female who presents emergency department chief complaint dizziness patient reports she was seen at [place] had CT scans was given a prescription for meclizine patient reports she was told she may have fluid in her ear and also reports today she noticed that she had some lymphadenopathy in her neck. Related Data Home Medications ?Medication ?Instructions ?Recorded ?Confirmed ?Last Taken ?Type fluticasone propionate 50 1 spray intranasal DAILY PRN 01/15/24 10/15/24 Unknown History mcg/actuation nasal Allergy Symptoms spray,suspension mupirocin 2 % topical ointment 1 applic topical BID PRN sores 05/20/24 10/15/24 Unknown History nystatin 100,000 unit/gram topical 1 applic topical BID PRN 10/15/24 10/15/24 Unknown History powder omeprazole 20 mg capsule,delayed 20 mg PO DAILY PRN 10/15/24 10/15/24 Unknown History release Allergies Allergy/AdvReac Type Severity Reaction Status Date / Time No Known Allergies Allergy Verified 11/02/24 20:41 Review of Systems Review of Systems: A 10 system review of systems was completed on the patient and is negative except for what is stated in the HPI. Nursing and ancillary documentation was reviewed. [facility] Past Medical History Medical History Hyperlipidemia Diabetes mellitus Ulnar neuropathy Cervical radiculopathy H/O one miscarriage Asthma Nerve damage Repair of arm 2008 Tendonitis Depression Hypertension Post-menopausal Surgical History Surgical History History of cholecystectomy H/O right knee surgery Status post arthroscopic partial medial meniscectomy (~07/24/19) Left knee H/O section 1983 History of tonsillectomy 2003 Family History Family History Mother Hypertension Family history of diabetes mellitus in first degree relative Esophageal cancer Father Family history of heart disease in male family member before age 55 Patient's father is Sibling Family history of heart disease in male family member before age 55 Carcinoma of colon, Onset Age: 68 Sister Other Diabetes mellitus Family history of congenital heart disease Family history of malignant neoplasm Social History Social History Social History: Caffeine-tea daily Smoking status: Never smoker Second hand tobacco smoke exposure: No Alcohol intake: never Substance use: never Substance use type: does not use Do You Feel Safe in your Home?: Yes Lack of Transportation: No Lack of Food: Never True Current Housing: I Have Housing Concerned About Future Housing: No Difficulty Paying Gas/Electric Bills: No Difficulty Paying for Meds: No Currently Unemployed: No Education: High School Diploma/GED Difficulty w/ Childcare or Family Care: No Living arrangements: with family Occupation/Education: occupation 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 HEAD: Normocephalic, atraumatic. EYES: PERRLA and EOMI. ENT: Nares clear, no rhinorrhea or epistaxis. Mucous membranes dry. Left tympanic membrane is bulging NECK: Supple. CHEST: Clear to auscultation. No respiratory distress. HEART: Regular rate and rhythm. No murmur heard. Normal peripheral pulses. ABDOMEN: Soft, nontender, nondistended, normal active bowel sounds. EXTREMITIES: Normal range of motion. No edema. SKIN: Warm, dry, no rash. NEURO: No focal deficits. Alert and oriented x3. PSYCH: Normal mood and affect. Course Vital Signs Vital signs: Vital Signs Temperature 36.4 C L 11/02/24 20:42 Pulse Rate 98 11/02/24 20:42 Respiratory Rate 18 11/02/24 20:42 Blood Pressure 119/79 11/02/24 20:42 Pulse Oximetry 98 11/02/24 20:42 Oxygen Delivery Room Air 11/02/24 20:42 Temperature 36.4 C L 11/02/24 20:42 Pulse Rate 78 11/03/24 00:50 Respiratory Rate 18 11/02/24 20:42 Blood Pressure 144/83 H 11/03/24 00:50 Pulse Oximetry 98 11/02/24 20:42 Oxygen Delivery Room Air 11/02/24 20:42 Medical Decision Making MDM Narrative Medical decision making narrative: Differential diagnosis includes vertigo, UTI, otitis media Patient was started on IV fluids in the emergency department and feels much better after receiving a L of normal saline. Laboratory studies were obtained showed normal CBC normal CMP urinalysis showed evidence of UTI COVID flu RSV were negative strep was negative. Patient will be started on cefdinir and recommended to follow-up with her primary care provider Vital Signs Vital Signs: Vital Signs Temperature 36.4 C L 11/02/24 20:42 Pulse Rate 98 11/02/24 20:42 Respiratory Rate 18 11/02/24 20:42 Blood Pressure 119/79 11/02/24 20:42 Pulse Oximetry 98 11/02/24 20:42 Oxygen Delivery Room Air 11/02/24 20:42 Temperature 36.4 C L 11/02/24 20:42 Pulse Rate 78 11/03/24 00:50 Respiratory Rate 18 11/02/24 20:42 Blood Pressure 144/83 H 11/03/24 00:50 Pulse Oximetry 98 11/02/24 20:42 Oxygen Delivery Room Air 11/02/24 20:42 Lab Data 11/02/24 23:28 11/02/24 23:28 Labs: Lab Results 11/02/24 11/02/24 Range/Units 20:56 23:28 WBC 8.3 (4.5-10.0) K/mm3 RBC 5.22 (4.2-5.4) M/mm3 Hgb 14.6 (12.0-15.0) g/dL Hct 42.4 (37.0-47.0) % MCV 81.2 (80-100) fl MCH 28.0 (26-34) pg MCHC 34.4 (32-36) g/dl RDW 13.6 (11.5-14.5) % Plt Count 320 (150-375) k/mm3 MPV 9.3 (7.4-10.4) fl Immature Gran % (Auto) 0.4 (0-0.5) % Neut % (Auto) 58.1 (45.5-73.1) % Lymph % (Auto) 31.0 (18.3-44.2) % [place] % (Auto) 9.5 H (2.6-8.5) % Eos % (Auto) 0.5 (0-4.4) % Baso % (Auto) 0.5 (0.2-1.2) % Lymph # (Auto) 2.57 (0.9-3.2) K/mm3 [place] # (Auto) 0.8 H (0.1-0.6) K/mm3 Eos # (Auto) 0.0 (0-0.3) K/mm3 Baso # (Auto) 0.0 (0.0-0.1) K/mm3 Abs Immat Gran (auto) 0.03 (0.00-0.031) K/mm3 Absolute Neuts (auto) 4.8 (1.3-6.7) K/mm3 Absolute Nucleated RBC 0.000 (0.0-0.012) K/mm3 Nucleated RBC % 0.0 (0.0-0.2) % Sodium 137 (137-145) mmol/L Potassium 3.5 (3.4-5.0) mmol/L Chloride 100 (98-107) mmol/L Carbon Dioxide 28 (22-30) mmol/L Anion Gap 9 (4-12) mmol/L BUN 14 D (7-17) mg/dL Creatinine 0.85 (0.7-1.0) mg/dL Estim Creat Clear Calc 63 ml/min Estimated GFR > 60 (59 - ) Glucose 103 (65-110) mg/dL Calcium 9.3 (8.4-10.2) mg/dL Magnesium 2.0 (1.6-2.3) mg/dL Total Bilirubin 0.9 (0.2-1.3) mg/dL AST 18 (14-36) U/L ALT 17 (6-35) U/L Alkaline Phosphatase 101 (38-126) U/L Total Protein 8.0 (6.3-8.2) g/dL Albumin 4.3 (3.5-5.1) g/dL Procalcitonin 0.1 ng/mL Urine Color Dark yellow (Yellow) Urine Appearance Cloudy H (Clear) Urine pH 5.0 (5.0-9.0) Ur Specific [place] 1.031 (1.001-1.035) Urine Protein Trace (Negative) mg/dL Urine Glucose (UA) Negative (Negative) mg/dL Urine Ketones 1+ H (Negative) mg/dL Ur Blood (Man) Negative (Negative) Urine Nitrate Negative (Negative) Urine Bilirubin 2+ H (Negative) Urine Urobilinogen 1.0 (<2.0) mg/dL Add Ur Microanalysis Reviewed Leukocyte Esterase Rfl 3+ H (Negative) NAVI/UL Urine RBC 11-20 H (0-2) /hpf Urine WBC 21-50 H (0-3) /hpf Ur Squamous Epith Cells Moderate (Few) /hpf Calcium Oxalate Crystal Present (None) /hpf Urine Bacteria 1+ H /hpf Urine Casts 6-10 Influenza A (RT-PCR) Negative (Negative) Influenza B (RT-PCR) Negative (Negative) RSV (RT-PCR) Negative (Negative) SARS-CoV-2 RNA (RT-PCR) Negative (Negative) Group A Strep (PCR) Not detected (Negative) Discharge Plan Discharge Clinical Impression: Vertigo, UTI (urinary tract infection), Acute left otitis media Patient Disposition: Home, Self-Care Condition: Stable Instructions: Antibiotic Form, Urinary Tract Infection in Women (ED), Ear Infection (ED), Benign Paroxysmal Positional Vertigo (ED), Dizziness (ED) Patient Language: Romansh Prescriptions: New cefdinir 300 mg capsule 300 mg PO Q12H 10 Days Qty: 20 0RF ondansetron 4 mg tablet,disintegrating 4 mg PO Q8H PRN (Reason: nausea and vomiting) Qty: 10 0RF No Action omeprazole 20 mg capsule,delayed release(DR/EC) 20 mg PO DAILY PRN Rx Instructions: To be taken 30 minutes prior to dinner. fluticasone propionate 50 mcg/actuation spray,suspension 1 spray intranasal DAILY PRN (Reason: Allergy Symptoms) nystatin 100,000 unit/gram powder 1 applic topical BID PRN Mounjaro 15 mg/0.5 mL pen injector 15 mg subcut WEEKLY Qty: 2 3RF mupirocin 2 % ointment 1 applic topical BID PRN (Reason: sores) losartan 100 mg tablet 100 mg PO DAILY Qty: 90 1RF cholecalciferol (vitamin D3) 1,250 mcg (50,000 unit) capsule 1,250 mcg PO WEEKLY Qty: 8 0RF Rx Instructions: Saturday atorvastatin 10 mg tablet 10 mg PO QHS Qty: 90 1RF sertraline 100 mg tablet 100 mg PO DAILY Qty: 90 0RF Rx Instructions: Takes HS Follow-up/Referrals: Sameer Walsh, DO [Primary Care Provider] - Time of Disposition: 00:53
[2024-11-03 00:50] VITALS: BP 144/83; PULSE 78
[2024-11-03 00:51] VITALS: BP 155/88; PULSE 89
[2024-11-03 00:52] VITALS: BP 142/89; PULSE 107
[2024-11-03 00:56] VITALS: PULSE 81
[2024-11-03 01:13] VITALS: BP 146/83; PULSE 85; RESP 16; O2SAT 99
[2024-11-03 01:14] VITALS: BP 146/83; PULSE 85; RESP 16; TEMP 36.6; O2SAT 99
--- OUTSIDE RECORDS SUMMARY | 2024-11-09 06:33 | XMS_ITS | Encounter Summary ---
Author Organization [facility] Address [address] [place] [address] Care Team Providers Care E Commerce Specialist Name Role Phone Sameer Walsh DO Primary Care Provider [phone] Encounter Details Date Type Department Care Team (Latest Contact Info) Description 03/15/2016 Hospital Outpatient Visit Formerly [facility] [address] [place] [id number] Discharge Disposition: Home or Self Care Social History Tobacco Use Types Packs/Day Years Used Date Smoking Tobacco: Never Assessed Sex and Gender Information Value Date Recorded Sex Assigned at Not on file Gender Identity Not on file Sexual Orientation Not on file documented as of this encounter Miscellaneous Notes * Letter - ProviderGerard MD - 05/02/2018 10:51 AM CDT Letter Signed by Frazad Malloy RN on Author: Farzad Malloy RN Service: (none) Author Type: (none) Date of Service: Filed: Note Type: Letter Status: (Other) April 19, 2016 Radha Grant [address] [id number] Dear Radha Grant: The results of your recent laboratory test are as follows: MR BRAIN W/WO CONTRAST Narrative: EXAMINATION: Magnetic resonance imaging (MRI) of the brain without and with contrast HISTORY: 55-year-old female with right ear tingling. TECHNIQUE: MRI of the brain was performed prior to and following the uneventful administration of 10 mL Gadavist intravenous gadolinium contrast according to an internal auditory canal protocol. FINDINGS: No prior study is available for comparison. No evidence of acute cerebral infarction is seen. The ventricles are of normal size, shape, and morphology. No mass effect or midline shift is seen. No enhancing lesions are identified. The sella, posterior fossa, brainstem, craniocervical junction, and visualized cervical spine appear normal. The visualized paranasal sinuses are clear. Normal flow voids are demonstrated in the carotid arteries and basilar artery. The calvarium appears normal. The cerebellopontine angles and internal auditory canals appear normal. No enhancing lesions are identified along the course of the cranial nerve 7/8 complexes. The signal within the bony labyrinth appears normal on both sides. The mastoids appear normal. Meckel's cave and the cavernous sinuses appear normal. No abnormal signal or enhancing lesion is seen along the visualized portions of the trigeminal nerves. The orbits and optic chiasm appear normal. Impression: IMPRESSION: 1. No MRI findings to explain the patient's reported symptoms. This report was approved by Kalani Muniz M.D. on 03/15/2016 9:11 AM . I, Dr. VENKATA MCKEON M.D. have personally reviewed and interpreted this examination/study. This report was electronically signed by VENKATA MCKEON M.D. on 03/15/2016 9:23 AM . If you have any questions or concerns, please don't hesitate to call. Sincerely, Farzad Malloy RN * Addendum Note - Gerard Barth MD - 04/19/2016 1:47 PM CDT Addendum Note Signed by Farzad Malloy RN on 04/19/2016 1:47 PM Author: Farzad Malloy RN Service: (none) Author Type: Registered Nurse Date of Service: 04/19/2016 1:47 PM Filed: 04/19/2016 1:47 PM Note Type: Addendum Note Status: Signed Lumber Trimmer: Farzad Malloy RN (Registered Nurse) Encounter addended by: Farzad Malloy RN on: 04/19/2016 1:47 PM Documentation filed: Letters documented in this encounter Plan of Treatment Not on file documented as of this encounter Procedures Procedure Name Priority Date/Time Associated Diagnosis Comments MRI BRAIN WWO CONTRAST Routine 03/15/2016 7:47 AM CDT documented in this encounter Results * MRI BRAIN WWO CONTRAST (03/15/2016 7:47 AM CDT) Anatomical Region Laterality Modality Head Other Impressions 03/15/2016 9:23 AM CDT IMPRESSION: 1. No MRI findings to explain the patient's reported symptoms. This report was approved ??by Kalani Muniz M.D. ?? on 03/15/2016 9:11 AM . I, Dr. VENKATA MCKEON M.D. have personally reviewed and interpreted this examination/study. This report was electronically signed by VENKATA MCKEON M.D. ??on 03/15/2016 9:23 AM . Narrative 03/15/2016 9:23 AM CDT EXAMINATION: Magnetic resonance imaging (MRI) of the brain without and with contrast HISTORY: 55-year-old female with right ear tingling. TECHNIQUE: MRI of the brain was performed prior to and following the uneventful administration of 10 mL Gadavist intravenous gadolinium contrast according to an internal auditory canal protocol. FINDINGS: No prior study is available for comparison. No evidence of acute cerebral infarction is seen. The ventricles are of normal size, shape, and morphology. No mass effect or midline shift is seen. No enhancing lesions are identified. The sella, posterior fossa, brainstem, craniocervical junction, and visualized cervical spine appear normal. The visualized paranasal sinuses are clear. Normal flow voids are demonstrated in the carotid arteries and basilar artery. The calvarium appears normal. The cerebellopontine angles and internal auditory canals appear normal. No enhancing lesions are identified along the course of the cranial nerve 7/8 complexes. The signal within the bony labyrinth appears normal on both sides. The mastoids appear normal. Meckel's cave and the cavernous sinuses appear normal. No abnormal signal or enhancing lesion is seen along the visualized portions of the trigeminal nerves. The orbits and optic chiasm appear normal. Procedure Note Venkata Mckeon MD - 01/25/2018 EXAMINATION: Magnetic resonance imaging (MRI) of the brain without andwith contrast HISTORY: 55-year-old female with right ear tingling. TECHNIQUE: MRI of the brain was performed prior to and following theuneventful administration of 10 mL Gadavist intravenous gadoliniumcontrast according to an internal auditory canal protocol. FINDINGS: No prior study is available for comparison. No evidence of acute cerebral infarction is seen. The ventricles are ofnormal size, shape, and morphology. No mass effect or midline shift isseen. No enhancing lesions are identified. The sella, posterior fossa,brainstem, craniocervical junction, and visualized cervical spine appear normal. The visualized paranasal sinusesare clear. Normal flow voids are demonstrated in the carotid arteries andbasilar artery. The calvarium appears normal. The cerebellopontine angles and internal auditory canals appear normal. Noenhancing lesions are identified along the course of the cranial nerve 7/8complexes. The signal within the bony labyrinth appears normal on bothsides. The mastoids appear normal. Meckel's cave and the cavernous sinuses appear normal. No abnormalsignal or enhancing lesion is seen along the visualized portions of thetrigeminal nerves. The orbits and optic chiasm appear normal. IMPRESSION IMPRESSION: 1. No MRI findings to explain the patient's reported symptoms. This report was approved by Kalani Muniz M.D. on 03/15/2016 9:11AM . I, Dr. VENKATA MCKEON M.D. have personally reviewed and interpreted thisexamination/study. This report was electronically signed by VENKATA MCKEON M.D. on 03/15/20169:23 AM . Kiya Ewing MD MR ORDERABLES documented in this encounter Visit Diagnoses Diagnosis Trigeminal neuralgia Paresthesia of skin Disturbance of skin sensation documented in this encounter Care Teams E Commerce Specialist Relationship Specialty Start Date End Date Sameer Walsh DO PCP - General 09/13/15 documented as of this encounter
--- OUTSIDE RECORDS SUMMARY | 2024-11-09 06:33 | XMS_ITS | Encounter Summary ---
Author Organization [facility] Address [address] [place] [address] Care Team Providers Care Respiratory Care Assistant Name Role Phone Sameer Walsh DO Primary Care Provider Encounter Details Date Type Department Care Team (Latest Contact Info) Description 09/19/2020 11:59 PM ACETYLENE TORCH OPERATOR Hospital Encounter [facility] EEG/EMG [address] [place] [phone] Huy Figueroa MD [address] [place] [address] Discharge Disposition: Home or Self Care Social History Tobacco Use Types Packs/Day Years Used Date Smoking Tobacco: Never Alcohol Use Standard Drinks/Week Comments No 0 (1 standard drink = 0.6 oz pur e alcohol) Sex and Gender Information Value Date Recorded Sex Assigned at Not on file Gender Identity Not on file Sexual Orientation Not on file COVID-19 Exposure Response Date Recorded In the last month, have you been in contact with someone who was confirmed or suspected to have Coronavirus / COVID-19? No / Unsure 09/19/2020 2:38 PM ACETYLENE TORCH OPERATOR documented as of this encounter Medications at Time of Discharge Medication Sig Dispensed Refills Start Date End Date topiramate (TOPAMAX) 50 MG tablet Take 50 mg by mouth BID. 60 tablet 3 05/07/2016 documented as of this encounter Procedure Notes * Huy Figueroa MD - 09/20/2020 7:31 AM CSTProcedure(s): EMG Images from the original note were not included. [address] [address] Full Name: Radha Grant Procedure #: [id number] Gender: Female Date of : 1960 Visit Date: 09/19/2020 15:04 Age: 60 Years Examining Physician: Dr. Figueroa Referring Physician: Alina Weir Height: 5 feet 4 inch Reason for Test: Right upper ext 60-year-old woman reports right arm and hand pain for the last few months. Exam shows numbness of the digits 5 with normal muscle strength. Query ulnar neuropathy versus carpal tunnel syndrome versuscervical radiculopathy. SN[facility] Nerve / Sites Rec. Site Onset Lat Peak Lat PP Amp Segments Distance Peak Diff Velocity Temp. ms ms ??V mm ms m/s ??C R Ulnar - Digit V (Antidromic) 14 Wrist Dig V 2.8 3.5 23.5 Wrist - Dig V 140 50 35.3 Ref. <=3.1 >=5.0 Ref. >=44 A.Elbow - Wrist L Ulnar - Digit V (Antidromic) 14 Wrist Dig V 2.5 3.3 34.1 Wrist - Dig V 140 56 32.5 Ref. <=3.1 >=5.0 Ref. >=44 A.Elbow - Wrist R Median, Ulnar - Transcarpal comparison Median Palm Wrist 1.5 1.9 56.2 Median Palm - Wrist 80 55 35.6 Ref. <=2.2 >=40.0 Ref. >=53 Ulnar Palm Wrist 1.3 1.9 16.5 Ulnar Palm - Wrist 80 61 38 Ref. <=2.1 >=11.0 Ref. >=53 Median Palm - Ulnar Palm 0.00 38 Ref. <=0.40 R Median, Radial - Thumb comparison Median Wrist Thumb 2.1 2.7 28.5 Median Wrist - Thumb 100 48 36.1 Radial Wrist Thumb 1.4 1.9 18.1 Radial Wrist - Thumb 100 70 35.9 Median Wrist - Radial Wrist 0.79 35.9 Ref. <=0.50 MNC Nerve / Sites Muscle Latency Amplitude Segments Lat Diff Distance Velocity ms mV ms mm m/s R Median - APB Wrist APB 3.3 10.5 Wrist - APB 70 Ref. <=4.5 >=3.0 Ref. Elbow APB 6.8 10.3 Elbow - Wrist 3.6 200 56 Ref. Ref. >=48 R Ulnar - ADM Wrist ADM 2.7 12.3 Wrist - ADM 70 Ref. <=3.6 >=5.0 Ref. B.Elbow ADM 6.6 11.1 B.Elbow - Wrist 3.9 200 52 Ref. Ref. >=48 A.Elbow ADM 9.2 10.7 A.Elbow - B.Elbow 2.6 100 38 Ref. Ref. >=48 A.Elbow - Wrist 6.5 R Ulnar - FDI Wrist FDI 3.8 11.3 Wrist - FDI 70 B.Elbow FDI 7.5 10.4 B.Elbow - Wrist 3.7 200 54 Ref. Ref. >=49 A.Elbow FDI 9.9 10.0 A.Elbow - B.Elbow 2.5 100 41 Ref. Ref. >=49 A.Elbow - Wrist 6.2 EMG Summary Table Insertional Spontaneous Volitional MUAPs Muscle Nerve Roots Insertional Fib PSW Fasc Duration Amplitude Poly Config Recruitment R. Deltoid Axillary C5-C6 Normal None None None Normal Normal None Normal Normal R. Triceps brachii Radial C6-C8 Normal None None None Sl.Incr. Sl.Incr. Few Normal Reduced R. Flexor carpi radialis Median C6-C7 Normal None None None Sl.Incr. Sl.Incr. Few Normal Reduced R. First dorsal interosseous Ulnar C8-T1 Normal None None None Normal Normal None Normal Normal R. Flexor digitorum profundus, dig 4 & 5 Ulnar C8-T1 Normal None None None Normal Normal None Normal Normal R. C7 paraspinal Spinal C7- Normal 1+ None None Interpretation: 1- Bilateral ulnar antidromic sensory NCSs showed normal and symmetric SNAP amplitudes and normal conduction velocities. Prolonged peak latencies are likely technical due to low temperature. 2- The right median and ulnar palmar orthodromic mixed NCSs were normal with no significant difference in their peak latencies. 3- The right median and radial antidromic sensory SNAP peak latency comparison study showed prolonged median peak latency. 4- The right median motor NCS recorded from abductor pollicis brevis muscle showed normal distal latency, normal CMAP amplitudes and normal conduction velocity at the forearm segment. 5- The right ulnar motor NCS recorded from first dorsal interossei and abductor digiti minimi muscles showed normal distal latencies, normal CMAP amplitudes and normal conduction velocities at the forearm and slowed across the elbow segment. 6- Concentric Needle EMG of the above listed muscles showed 1+ Fibs/PSWs in the right C7 paraspinalmuscle along with high amplitude and broad motor unit action potentials associated with reduced recruitment patterns in the right triceps brachii and flexor carpi radialis muscles. Conclusions: The findings on this electrodiagnostic study are mostly consistent with a right sided ulnar neuropathy across the elbow with mainly demyelinating features. This conclusion is based on slowed conduction velocity of the right ulnar nerve across the elbow when recorded from both first dorsal interossei and abductor digiti minimi muscles. Normal needle EMG examination from a few ulnar innervated muscles argue against axonal loss. There is also electrodiagnostic evidence of right sided C7 radiculopathy based on active denervation associated with chronic reinnervation changes noted in a few muscles from the right upper extremity proximal and distally including right C7 paraspinal muscle. Relatively prolonged median peak latency when recorded from the right thumb is likely technical, however a very mild distal median neuropathy compatible with a very mild/equivocal carpal tunnel syndrome on the right side cannot be ruled out completely. Clinical and imaging correlations are suggested. Huy Figueroa MD, PhD YLENE TORCH OPERATOR documented in this encounter Plan of Treatment Scheduled Orders Name Type Priority Associated Diagnoses Orde r Schedule EMG WITH NERVE CONDUCTION STUDY Neurology Routine ONCE for 1 Occu rrences starting 09/19/2020 until 09/19/2020 documented as of this encounter Visit Diagnoses Not on filedocumented in this encounter Care Teams Respiratory Care Assistant Relationship Specialty Start Date End Date Sameer Walsh DO PCP - General 09/13/15 documented as of this encounter
--- OUTSIDE RECORDS SUMMARY | 2024-11-09 06:33 | XMS_ITS | Referral Summary ---
Author Organization [facility] Address [address] [facility] [place] [address] Care Team Providers Care Digging Machine Operator Name Role Phone Sameer Walsh DO Primary Care Provider [phone] [phone] [facility],non-owned Affiliates and Associated Physician Practices is amultiple site organization consisting of ambulatory clinics and hospital sitesin [place], [place] and [place]. This disclosure is being madepursuant to the Care Everywhere program and may not contain all information available regarding this patient. Last updated 18.[facility] Medications * Be aware that medications may not be up to date on this document. Alwaysverify current medications with the patient. Medication Sig Dispensed Refills Start Date End Date Status topiramate (TOPAMAX) 50 MG tablet Take 50 mg by mouth BID. 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 Other melanin hyperpigmentation 09/13/2015 Inflamed seborrheic keratosis 09/13/2015 Other seborrheic keratosis 09/13/2015 Other hypertrophic disorders of the skin 015 Exercise-induced bronchospasm 05/13/2013 Chronic rhinitis 05/13/2013 Obstructive sleep apnea 05/13/2013 Social History Tobacco Use Types Packs/Day Years Used Date Smoking Tobacco: Never Alcohol Use Standard Drinks/Week Comments No 0 (1 standard drink = 0.6 oz pur e alcohol) Sex and Gender Information Value Date Recorded Sex Assigned at Not on file Gender Identity Not on file Sexual Orientation Not on file Last Filed Vital Signs Vital Sign Reading Time Taken Comments Blood Pressure 151/96 05/07/2016 10:55 AM CDT Pulse 95 05/07/2016 10:55 AM CDT Temperature 36.4 ??C (97.6 ??F) 05/07/2016 1 0:55 AM CDT Respiratory Rate 18 05/07/2016 10:5 5 AM CDT Oxygen Saturation - - Inhaled Oxygen Concentration - - Weight 100.6 kg (221 lb 12.8 oz) 2015 10:55 AM CDT Height 162.6 cm (5' 4 ) 05/07/2016 10:5 5 AM CDT Body Mass Index 38.07 05/07/2016 10:55 AM CDT Plan of Treatment Not on file Care Teams Digging Machine Operator Relationship Specialty Start Date End Date Sameer Walsh DO PCP - General 09/13/15
--- OUTSIDE RECORDS SUMMARY | 2024-11-09 06:33 | XMS_ITS | CONTINUITY OF CARE DOCUMENT ---
Author Name jaquelin hammer Address Unknown Organization [facility] Office Address [address] [place] [address] [address] [place] [address] Phone [phone] Care Team Providers Care Pumping Station Engineer Name Role Phone Susi Manzanares MD Unavailable Susi Manzanares MD Unavailable INSURANCE PROVIDERS Payer name Policy type / Coverage type [place] red alliance party ID [id number] [id number] Other [id number]
--- OUTSIDE RECORDS SUMMARY | 2024-11-09 06:33 | XMS_ITS | Patient Health Summary ---
Author Organization [facility] Address [address] [facility] [place] [address] Care Team Providers Care Second Steward Name Role Phone NidiadashSameer shen DO Primary Care Provider [phone] Note from [facility],non-owned Affiliates and Associated Physician Practices is amultiple site organization consisting of ambulatory clinics and hospital sitesin [place], [place], [place] and [place]. This disclosure is being madepursuant to the Care Everywhere program and may not contain all information available regarding this patient. Last updated 18.[facility] Medications * Be aware that medications may not be up to date on this document. Alwaysverify current medications with the patient. * topiramate (TOPAMAX) 50 MG tablet(Started 05/07/2016) Take 50 mg by mouth BID. 3 refills left Active Problems Problem Noted Date Diagnosed Date [...] Mass Index 38.07 05/07/2016 10:55 AM CDT Procedures * MRI BRAIN WWO CONTRAST(Performed 03/15/2016) * CBC W AUTO DIFFERENTIAL(Performed 02/28/2016) * HEMOGLOBIN A1C(Performed 02/28/2016) * MARIA ELENA BLOOD SCREEN(Performed 02/28/2016) * COMPREHENSIVE METABOLIC PANEL(Performed 02/28/2016) * VIOLETTA STAINING PATTERNS REFLEXED(Performed 02/28/2016) * MARIA ELENA BLOOD SCREEN W/REFLEX TITER(Performed 02/28/2016) * CBC W AUTO DIFFERENTIAL(Performed 02/28/2016) Results * MRI BRAIN WWO CONTRAST (03/15/2016 [...] AM . Kiya Ewing MD MR ORDERABLES * (ABNORMAL) CBC W AUTO DIFFERENTIAL (02/28/2016 3:47 PM CDT) Only the most recent of2 resultswithin the time period is included. WBC 6.5 3.5 - 10.5 10? 3 /uL [facility] RBC 4.72 3.90 - 5.00 10? 6 /uL [facility] Hemoglobin 13.6 12.0 - 15.5 g/dL [facility] Hematocrit 40.2 35.0 - 45.0 % [facility] MCV 85.2 81.0 - 97.0 fL [facility] MCH 28.8 28.0 - 34.0 pg [facility] MCHC 33.8 32.0 - 36.0 g/dL [facility] Platelet Count 312 150 - 400 10? 3 /uL [facility] RDW-SD 39.4 36.0 - 50.0 fL [facility] RDW-CV 12.7 11.2 - 14.8 % [facility] MPV 9.3 9.3 - 12.8 fL [facility] Neutrophils % 36.9 35.0 - 70.0 % [facility] Lymphocytes % 48.4 19.7 - 55.1 % [facility] Monocytes % 11.6 3.0 - 15.0 % [facility] Eosinophils % 2.8 0.0 - 6.0 % [facility] Basophil % 0.3 0.0 - 1.5 % [facility] Neutrophils Absolute 2.4 1.6 - 7.0 10? 3 /uL [facility] Lymphocyte Absolute 3.1(H) 0.8 - 2.9 10? 3 /uL [facility] Monocytes Absolute 0.75(H) 0.14 - 0.66 10? 3 /uL [facility] Eosinophils Absolute 0.18 0.00 - 0.22 10? 3 /uL [facility] Basophils Absolute 0.02 0.00 - 0.06 10? 3 /uL [facility] Immature Granulocytes % 0.2 0.0 - 1.0 % [facility] Blood specimen (specimen) BLOOD SPECIMEN / Unknown 02/28/2016 3:47 PM CDT 02/28/2016 4:04 PM CDT Kiya Ewing MD LAB - HEMATOLOGY ORD ERABLES [address] [phone] * (ABNORMAL) MARIA ELENA BLOOD SCREEN (02/28/2016 3:47 PM CDT) MARIA ELENA Positive(A ) None Detected [facility] Venous blood specimen (specimen) 02/28/2016 3:47 PM CDT 02/28/2016 4:04 PM CDT Kiya Ewing MD LAB - CHEMISTRY ORDE RABLES [address] [phone] * HEMOGLOBIN A1C (02/28/2016 3:47 PM CDT) Hemoglobin A1c 5.8 4.4 - 6.3 % [facility] Estimated Average Glucose 120 mg/dL [facility] Comment: HbA1c Interpretation: Treatment target values recommended by ADA and other clinical organizations should be used to evaluate metabolic control in patients. Treatment Target Values: Normal : < 5.7% Pre-diabetes: 5.7-6.4% Diabetes: Equal to or greater than 6.5% Reference: [place] Diabetes Association Standards of Care in Diabetes -2014 In patients 70 years and older consider HbA1c target range of 7.0-7.5% Reference: ??Diabetes Mellitus in Older People: Position Statement on behalf of the International Association of Gerontology and Geriatrics (IAGG), the Diabetes Working Democrat for Older People (EDWPOP), and the International Task Force of Experts in Diabetes. ??Telly Morfin et al. J [place] [employer] Association. 2012 Test results diagnostic of diabetes should be repeated for confirmation. The Tosoh G8 assay for the measurement of HbA1c is a National Glycohemoglobin Standardization Program (NGSP)certified method. Results for patients with HbE disease should be interpreted with caution as this hemoglobinopathy has been shown to interfere with the Tosoh G8 assay. Blood specimen (specimen) BLOOD SPECIMEN / Unknown 02/28/2016 3:47 PM CDT 02/28/2016 4:04 PM CDT Kiya Ewing MD LAB - CHEMISTRY KANDY BLACK [facility] Organization Address City/State/ZIP Co de Phone Number [facility] [address] [phone] * (ABNORMAL) COMPREHENSIVE METABOLIC PANEL (02/28/2016 3:47 PM CDT) BUN 13 7 - 26 mg/dL [facility] Creatinine 0.9 0.6 - 1.2 mg/dL [facility] Sodium 140 136 - 145 mmol/L [facility] Potassium 3.9 3.5 - 4.5 mmol/L [facility] Chloride 104 98 - 107 mmol/L [facility] CO2 30(H) 22 - 29 mmol/L [facility] Glucose 108 70 - 115 mg/dL [facility] Calcium 9.4 8.4 - 10.2 mg/dL [facility] Protein Total 7.5 6.0 - 8.3 g/dL [facility] Albumin 3.7 3.4 - 5.0 g/dL [facility] Bilirubin Total 0.4 0.2 - 1.2 mg/dL [facility] Alkaline Phosphatase 91 40 - 150 Units/L [facility] ALT 14 0 - 55 Units/L [facility] AST 11 5 - 34 Units/L [facility] Anion Gap 10 8 - 18 [facility] BUN/Creatinine Ratio 14 7 - 23 [facility] Osmolality Calculated 276 270 - 300 mOsm/kg [facility] Albumin/Globulin Ratio 1.0(L) 1.1 - 2.3 [facility] eGFR >60 >60 mL/min/1.7 3 m2 [facility] Blood specimen (specimen) BLOOD SPECIMEN / Unknown 02/28/2016 3:47 PM CDT 02/28/2016 4:04 PM CDT Kiya Ewing MD LAB - CHEMISTRY KANDY Rivera Organization Address City/State/ZIP Co de Phone Number [facility] [place] [address], [facility] [phone] * (ABNORMAL) VIOLETTA STAINING PATTERNS REFLEXED (02/28/2016 3:47 PM CDT) Speckled Pattern 1:160(H) [facility] ([facility]) Note Comment [facility] (BEAKER) Venous blood specimen (specimen) BLOOD SPECIMEN / Unknown 02/28/2016 3:47 PM CDT 02/29/2016 10:18 AM CDT Narrative [facility] (BEAKER) - 03/01/2016 3:29 PM CDT A positive MARIA ELENA result may occur in healthy individuals or be associated with a variety of diseases. ??See interpre- tation below: Pattern ?Antigen Detected ??Suggested Disease Association ? Homogeneous ??DNA(ds,ss,), ?High titers - SLE (Smooth) ? Histone ? Speckled ? Sm, SOCIAL WORKER MASTERS, SCL-70, ??SLE,MCTD,Scleroderma,Sjogrens ? SS-A/SS-B ? Nucleolar ?SCL-70, PM-1/SCL ??High titers Scleroderma Poly- ? myositis/Scleroderma Overlap ? Centromere ?? Centromere ?PSS w/Crest syndrome variable ?? Kiya Ewing MD LAB - PATHOLOGY/CYTO LOGY ORDERABLES [facility] (thinkingphones) * MARIA ELENA BLOOD SCREEN W/REFLEX TITER (02/28/2016 3:47 PM CDT) MARIA ELENA IFA See patterns [facility] [employer] (thinkingphones) Comment: ? Negative ?? <1:80 ? Borderline ??1:80 ? Positive ?? >1:80 Venous blood specimen (specimen) BLOOD SPECIMEN / Unknown 02/28/2016 3:47 PM CDT 02/29/2016 10:18 AM CDT Narrative [facility] ([employer]) - 03/01/2016 3:29 PM CDT Performed at: ??01 - [facility] [address], [place], [place] ??[id number] Agricultural Produce Packer: Monico Wu PhD, Phone: ??[phone] Kiya Ewing MD LAB - CHEMISTRY KANDY BLACK [facility] (MELINDA) Care Teams Second Steward Relationship Specialty Start Date End Date Sameer Walsh DO PCP - General 09/13/15
--- OUTSIDE RECORDS SUMMARY | 2024-11-09 06:33 | XMS_ITS | Encounter Summary ---
Author Organization [facility] Address [address] [facility] [place] [address] Care Team Providers Care Patient Care Technician Name Role Phone Sameer Walsh DO Primary Care Provider [phone]- [phone] Encounter Details Date Type Department Care Team (Latest Contact Info) Description 03/15/2016 Hospital Outpatient Visit Historic [facility] [address] [place] [phone] Kiya Ewing MD [address] [phone] Discharge Disposition: Home or Self Care Social History Tobacco Use Types Packs/Day Years Used Date Smoking Tobacco: Never Assessed Sex and Gender Information Value Date Recorded Sex Assigned at Not on file Gender Identity Not on file Sexual Orientation Not on file documented as of this encounter Plan of Treatment Not on file documented as of this encounter Visit Diagnoses Not on filedocumented in this encounter Care Teams Patient Care Technician Relationship Specialty Start Date End Date Sameer Walsh DO PCP - General 09/13/15 documented as of this encounter
--- OUTSIDE RECORDS SUMMARY | 2024-11-09 06:33 | XMS_ITS | Clinical Summary ---
Author Organization [facility] Address [address] [facility] [place] [address] Care Team Providers Care Manager Women Name Role Phone Sameer Walsh DO Primary Care Provider [phone]- [phone] Source Comments [facility],non-owned Affiliates and Associated Physician Practices is amultiple site organization consisting of ambulatory clinics and hospital sitesin [place], [place], [place] and [place]. This disclosure is being madepursuant to the Care Everywhere program and may not contain all information available regarding this patient. Last updated 18.[facility] Medications * Be aware that medications may [...] Chronic rhinitis 05/13/2013 Obstructive sleep apnea 05/13/2013 Family History Medical History Relation Name Comments Heart Disease Father Status: Deceas ed Cancer - Skin, Melanoma Mother Stat us: Allergy (Severe) Other Son is oxana rgic to shellfish Asthma Other Both sons None Known Sister Migraines Status: Alive Relation Name Status Comments Father Mother Other Sister Migraines Social History Tobacco Use Types Packs/Day Years [...] 05/07/2016 10:55 AM CDT Plan of Treatment Health Maintenance Due Date Last Done Comments COLOGUARD (AGES 45-75) - COL ON CA SCREENING 1960 COLON MONITORING 1960 COLONOSCOPY - COLON CA SCREENING 1960 CT COLONOGRAPHY - COLON CA SCREENING 1960 Colorectal Cancer Screening 1960 FIT - COLON CA SCREENING 1960 FLEX SIG - COLON CA SCREENING 1960 LIPID TESTING 1960 MAMMOGRAM 1960 PAP SMEAR 1960 HIV SCREENING 1975 HEPATITIS C SCREENING 05/05/1978 DTAP/TDAP/TD VACCINES (1 - Tdap) 1979 PNEUMOCOCCAL VACCINE 50+ (1 of 1 - PCV) 2010 ZOSTER VACCINE (1 of 2) 2010 COVID-19 VACCINE ( - 2023-2 5 season) 2024 INFLUENZA VACCINE (#1) 2024 DEPRESSION SCREENING 10/28/2024 Respiratory Syncytial Virus (RSV) Vaccine Pt: or over 60 yrs (1 - 1-dose 75+ series) 2035 HEPATITIS B VACCINE Aged Out No longe r eligible based on patient's age to complete this topic HIB VACCINE Aged Out No longer eligi ble based on patient's age to complete this topic HPV VACCINE Aged Out No longer eligi ble based on patient's age to complete this topic MENINGOCOCCAL (Group B) VACCINE Aged Out No longer eligible based on patient's age to complete this topic MENINGOCOCCAL VACCINE Aged Out No sita kathy eligible based on patient's age to complete this topic PNEUMOCOCCAL VACCINE Aged Out No long er eligible based on patient's age to complete this topic Care Teams Manager Women Relationship Specialty Start Date End Date Sameer Walsh DO PCP - General 09/13/15
--- OUTSIDE RECORDS SUMMARY | 2024-11-09 06:33 | XMS_ITS | Encounter Summary ---
Author Organization [facility] Address [address] [facility] [place] [address] Care Team Providers Care Factory Machine Computer Operator Name Role Phone Sameer Walsh DO Primary Care Provider [phone]- [phone] Encounter Details Date Type Department Care Team (Latest Contact Info) Description 09/07/2020 Travel Social History Tobacco Use Types Packs/Day Years [...] or suspected to have Coronavirus / COVID-19? Unable to assess 09/07/2020 9:59 AM SONOGRAPHER documented as of this encounter Plan of Treatment Not on file documented as of this encounter Visit Diagnoses Not on filedocumented in this encounter Care Teams Factory Machine Computer Operator Relationship Specialty Start Date End Date Sameer Walsh DO PCP - General 09/13/15 documented as of this encounter
--- OUTSIDE RECORDS SUMMARY | 2024-11-09 06:33 | XMS_ITS | Encounter Summary ---
Author Organization [facility] Address [address] [place] [address] Care Team Providers Care Labor Employment Associate Name Role Phone KristenSameer moreland Primary Care Provider Encounter Details Date Type Department Care Team (Latest Contact Info) Description 02/28/2016 Hospital Outpatient Visit [facility] [address] [place] [id number] Kiya Ewing MD [address] [place] [id number] Discharge Disposition: Home or Self Care Social History Tobacco Use Types Packs/Day Years Used Date Smoking Tobacco: Never Assessed Sex and Gender Information Value Date Recorded Sex Assigned at Not on file Gender Identity Not on file Sexual Orientation Not on file documented as of this encounter Miscellaneous Notes * Letter - Kiya Ewing MD - 05/02/2018 10:52 AM CDT Letter Signed by Kiya Ewing MD on Author: Kiya Ewing MD Service: (none) Author Type: (none) Date of Service: Filed: Note Type: Letter Status: (Other) April 30, 2016 Radha Grant [address] [facility] [id number] Dear Radha Grant: The results of your recent laboratory test are as follows: CBC W/ DIFFERENTIAL Narrative: The following orders were created for panel order CBC w Differential. Procedure Abnormality Status --------- ------ CBC WITH DIFFERENTIAL[[id number]] Abnormal Final result Please view results for these tests on the individual orders. CBC WITH DIFFERENTIAL Result Value Ref Range WBC 6.5 3.5-10.5 10??3/uL RBC 4.72 3.90-5.00 10??6/uL Hemoglobin 13.6 12.0-15.5 g/dL Hematocrit 40.2 35.0-45.0 % MCV 85.2 81.0-97.0 fL MCH 28.8 28.0-34.0 pg MCHC 33.8 32.0-36.0 g/dL Platelet Count 312 150-400 10??3/uL RDW-SD 39.4 36.0-50.0 fL RDW-CV 12.7 11.2-14.8 % MPV 9.3 9.3-12.8 fL Neutrophil % 36.9 35.0-70.0 % Lymphocytes % 48.4 19.7-55.1 % Monocytes % 11.6 3.0-15.0 % Eosinophils % 2.8 0.0-6.0 % Basophil % 0.3 0.0-1.5 % Neutrophil Abs 2.4 1.6-7.0 10??3/uL Lymphocytes Abs 3.1 (*) 0.8-2.9 10??3/uL Monocytes Abs 0.75 (*) 0.14-0.66 10??3/uL Eosinophil Abs 0.18 0.00-0.22 10??3/uL Basophils ABS 0.02 0.00-0.06 10??3/uL Immature Granulocyte % 0.2 0.0-1.0 % COMPREHENSIVE METABOLIC PANEL Result Value Ref Range BUN 13 7-26 mg/dL Creatinine 0.9 0.6-1.2 mg/dL Sodium 140 136-145 mmol/L Potassium 3.9 3.5-4.5 mmol/L Chloride 104 98-107 mmol/L Carbon Dioxide 30 (*) 22-29 mmol/L Glucose 108 70-115 mg/dL Calcium 9.4 8.4-10.2 mg/dL Total Protein 7.5 6.0-8.3 g/dL Albumin 3.7 3.4-5.0 g/dL Total Bilirubin 0.4 0.2-1.2 mg/dL Alkaline Phosphatase 91 40-150 Units/L ALT 14 0-55 Units/L AST 11 5-34 Units/L Anion Gap 10 8-18 BUN/Creatinine Ratio 14 7-23 Calculated Osmolality 276 270-300 mOsm/kg A/G Ratio 1.0 (*) 1.1-2.3 Est. Glomerular Filtration Rate >60 >60 mL/min/1.73 m2 MARIA ELENA Result Value Ref Range MARIA ELENA Screen Positive (*) None Detected HEMOGLOBIN A1C Result Value Ref Range Hemoglobin A1C 5.8 4.4-6.3 % Estimated Average Glucose 120 MARIA ELENA IFA SCREEN TITER PATTERN Result Value Ref Range Antinuclear Antibodies, IFA See patterns Narrative: Performed at: [address] [id number] Bulb Grader: Monico Wu PhD, Phone: [phone] REFLEX VIOLETTA STAINING PATTERNS Result Value Ref Range SPECKLED PATTERN 1:160 (*) NOTE Comment Narrative: A positive MARIA ELENA result may occur in healthy individuals or be associated with a variety of diseases. See interpre- tation below: Pattern Antigen Detected Suggested Disease Association Homogeneous DNA(ds,ss,), High titers - SLE (Smooth) Histone Speckled Sm, RESOURCE MANAGER, SCL-70, SLE,MCTD,Scleroderma,Sjogrens SS-A/SS-B Nucleolar SCL-70, PM-1/SCL High titers Scleroderma Poly- myositis/Scleroderma Overlap Centromere Centromere PSS w/Crest syndrome variable Essentially normal results.If you have any questions or concerns, please don't hesitate to call. Sincerely, Kiya Ewign MD * Addendum Note - Kiya Ewing MD - 04/30/2016 1:04 PM CDT Addendum Note Signed by Kiya Ewing MD on 04/30/2016 1:04 PM Author: Kiya Ewing MD Service: (none) Author Type: Physician Date of Service: 04/30/2016 1:04 PM Filed: 04/30/2016 1:04 PM Note Type: Addendum Note Status: Signed Stationary Fireman: Kiya Ewing MD (Physician) Encounter addended by: Kiya Ewing MD on: 04/30/2016 1:04 PM Documentation filed: Letters documented in this encounter Plan of Treatment Not on file documented as of this encounter Procedures Procedure Name Priority Date/Time Associated Diagnosis Comments CBC W AUTO DIFFERENTIAL Routine 02/28/2016 3:47 PM CDT MARIA ELENA BLOOD SCREEN Routine 02/28/2016 3:47 PM CDT HEMOGLOBIN A1C Routine 02/28/2016 3:47 PM CDT COMPREHENSIVE METABOLIC PANEL Routine 02/28/2016 3:47 PM CDT VIOLETTA STAINING PATTERNS REFLEXED MIR 02/28/2016 3:47 PM CDT MARIA ELENA BLOOD SCREEN W/REFLEX TITER MIR 02/28/2016 3:47 PM CDT CBC W AUTO DIFFERENTIAL Routine 02/28/2016 3:47 PM CDT documented in this encounter Results * (ABNORMAL) CBC W AUTO DIFFERENTIAL (02/28/2016 3:47 PM CDT) WBC 6.5 3.5 - 10.5 10? 3 /uL [facility] RBC 4.72 3.90 - 5.00 10? 6 /uL [facility] Hemoglobin 13.6 12.0 - 15.5 g/dL [facility] Hematocrit 40.2 35.0 - 45.0 % [facility] MCV 85.2 81.0 - 97.0 fL [facility] MCH 28.8 28.0 - 34.0 pg [facility] MCHC 33.8 32.0 - 36.0 g/dL [facility] Platelet Count 312 150 - 400 10? 3 /uL [facility] RDW-SD 39.4 36.0 - 50.0 fL [facility] RDW-CV 12.7 11.2 - 14.8 % [facility] MPV 9.3 9.3 - 12.8 fL [facility] Neutrophils % 36.9 35.0 - 70.0 % [facility] Lymphocytes % 48.4 19.7 - 55.1 % [facility] Monocytes % 11.6 3.0 - 15.0 % [facility] Eosinophils % 2.8 0.0 - 6.0 % [facility] Basophil % 0.3 0.0 - 1.5 % [facility] Neutrophils Absolute 2.4 1.6 - 7.0 10? 3 /uL [facility] Lymphocyte Absolute 3.1(H) 0.8 - 2.9 10? 3 /uL [facility] Monocytes Absolute 0.75(H) 0.14 - 0.66 10? 3 /uL [facility] Eosinophils Absolute 0.18 0.00 - 0.22 10? 3 /uL [facility] Basophils Absolute 0.02 0.00 - 0.06 10? 3 /uL [facility] Immature Granulocytes % 0.2 0.0 - 1.0 % [facility] Blood specimen (specimen) BLOOD SPECIMEN / Unknown 02/28/2016 3:47 PM CDT 02/28/2016 4:04 PM CDT Kiya Ewing MD LAB - HEMATOLOGY ORD ERABLES Performing Organization Address City/[facility]/ZIP Co de Phone Number [address] [phone] * HEMOGLOBIN A1C (02/28/2016 3:47 PM CDT) Hemoglobin A1c 5.8 4.4 - 6.3 % [facility] Estimated Average Glucose 120 mg/dL [facility] Comment: HbA1c Interpretation: Treatment target values recommended by ADA and other clinical organizations should be used to evaluate metabolic control in patients. Treatment Target Values: Normal : < 5.7% Pre-diabetes: 5.7-6.4% Diabetes: Equal to or greater than 6.5% Reference: [place] Diabetes Association Standards of Care in Diabetes -2014 In patients 70 years and older consider HbA1c target range of 7.0-7.5% Reference: ??Diabetes Mellitus in Older People: Position Statement on behalf of the International Association of Gerontology and Geriatrics (IAGG), the Diabetes Working Green Party for Older People (EDWPOP), and the International Task Force of Experts in Diabetes. ??Telly Morfin, et al. J [place] [employer] Medical Directors Association. 2012 Test results diagnostic [...] Kiya Ewing MD LAB - CHEMISTRY [place]DE [place] [address] [place] [address], [facility] [phone] * (ABNORMAL) MARIA ELENA BLOOD SCREEN (02/28/2016 3:47 PM CDT) MARIA ELENA Positive(A ) None Detected [facility] Venous blood specimen (specimen) 02/28/2016 3:47 PM CDT 02/28/2016 4:04 PM CDT Kiya Ewing MD LAB - CHEMISTRY KANDY BLACK [facility] Organization Address City/State/ZIP Co de Phone Number [facility] [address] [place] [address], [facility] [phone] * (ABNORMAL) COMPREHENSIVE METABOLIC PANEL (02/28/2016 3:47 PM CDT) Pathologist [facility] BUN 13 7 - 26 mg/dL [facility] Creatinine 0.9 0.6 - 1.2 mg/dL [facility] Sodium 140 136 - 145 mmol/L [facility] Potassium 3.9 3.5 - 4.5 mmol/L [facility] Chloride 104 98 - 107 mmol/L [facility] CO2 30(H) 22 - 29 mmol/L [facility] Glucose 108 70 - 115 mg/dL [facility] Calcium 9.4 8.4 - 10.2 mg/dL [facility] Protein Total 7.5 6.0 - 8.3 g/dL [facility] Albumin 3.7 3.4 - 5.0 g/dL [facility] Bilirubin Total 0.4 0.2 - 1.2 mg/dL [facility] Alkaline Phosphatase 91 40 - 150 Units/L [facility] ALT 14 0 - 55 Units/L [facility] AST 11 5 - 34 Units/L [facility] Anion Gap 10 8 - 18 [facility] BUN/Creatinine Ratio 14 7 - 23 [facility] Osmolality Calculated 276 270 - 300 mOsm/kg [facility] Albumin/Globulin Ratio 1.0(L) 1.1 - 2.3 [facility] eGFR >60 >60 mL/min/1.7 3 m2 [facility] Blood specimen (specimen) BLOOD SPECIMEN / Unknown 02/28/2016 3:47 PM CDT 02/28/2016 4:04 PM CDT Kiya Ewing MD LAB - CHEMISTRY KANDY Rivera Organization Address City/State/ZIP Co de Phone Number [facility] [address] [place] [address], [facility] [phone] * (ABNORMAL) VIOLETTA STAINING PATTERNS REFLEXED (02/28/2016 3:47 PM CDT) Speckled Pattern 1:160(H) [facility] ([employer]) Note Comment [facility] ([employer]) Venous blood specimen (specimen) BLOOD SPECIMEN / Unknown 02/28/2016 3:47 PM CDT 02/29/2016 10:18 AM CDT Narrative [facility] ([employer]) - 03/01/2016 3:29 PM CDT A positive MARIA ELENA result may occur in healthy individuals or be associated with a variety of diseases. ??See interpre- tation below: Pattern ?Antigen Detected ??Suggested Disease Association ? Homogeneous ??DNA(ds,ss,), ?High titers - SLE (Smooth) ? Histone ? Speckled ? Sm, RESOURCE MANAGER, SCL-70, ??SLE,MCTD,Scleroderma,Sjogrens ? SS-A/SS-B ? Nucleolar ?SCL-70, PM-1/SCL ??High titers Scleroderma Poly- ? myositis/Scleroderma Overlap ? Centromere ?? Centromere ?PSS w/Crest syndrome variable ?? Kiya Ewing MD LAB - PATHOLOGY/CYTO LOGY ORDERABLES [facility] ([employer]) * MARIA ELENA BLOOD SCREEN W/REFLEX TITER (02/28/2016 3:47 PM CDT) MARIA ELENA IFA See patterns [facility] [employer] [facility] ([employer]) Comment: ? Negative ?? <1:80 ? Borderline ??1:80 ? Positive ?? >1:80 Venous blood specimen (specimen) BLOOD SPECIMEN / Unknown 02/28/2016 3:47 PM CDT 02/29/2016 10:18 AM CDT Narrative [facility] ([employer]) - 03/01/2016 3:29 PM CDT Performed at: ??01 - [facility] [address] [place], [place] ??[id number] Bulb Grader: Monico Wu PhD, Phone: ??[phone] Kiya Ewing MD LAB - CHEMISTRY KANDY BLACK Performing Organization Address [facility] Co de Phone Number [facility] (MELINDA) * CBC W AUTO DIFFERENTIAL (02/28/2016 3:47 PM CDT) Blood specimen (specimen) BLOOD SPECIMEN / Unknown 02/28/2016 3:47 PM CDT Narrative [facility] - 02/28/2016 4:13 PM CDT The following orders were created for panel order CBC w Differential. Procedure ? Abnormality ? Status ? --------- ? ------ ? CBC WITH DIFFERENTIAL[[id number]] ? Abnormal ?Final result ? Please view results for these tests on the individual orders. Kiya Ewing MD LAB - HEMATOLOGY LENORE NICHOL Performing Organization Address [facility] Co de Phone Number [id number] [place] [address], [facility] documented in this encounter Visit Diagnoses Not on filedocumented in this encounter Care Teams Labor Employment Associate Relationship Specialty Start Date End Date Sameer Walsh DO PCP - General 09/13/15 documented as of this encounter
--- OUTSIDE RECORDS SUMMARY | 2024-11-09 06:33 | XMS_ITS | Encounter Summary ---
Author Organization [facility] Address [address] [facility] [place] [address] Care Team Providers Care Anhydrous Ammonia Production Supervisor Name Role Phone Sameer Walsh DO Primary Care Provider [phone] Encounter Details Date Type Department Care Team (Latest Contact Info) Description 09/19/2020 Travel Social History Tobacco Use Types Packs/Day [...] COVID-19? No / Unsure 09/19/2020 2:38 PM CENTRAL SUPPLY MANAGER documented as of this encounter Plan of Treatment Not on file documented as of this encounter Visit Diagnoses Not on filedocumented in this encounter Care Teams Anhydrous Ammonia Production Supervisor Relationship Specialty Start Date End Date Sameer Walsh DO PCP - General 09/13/15 documented as of this encounter
--- OUTSIDE RECORDS SUMMARY | 2024-11-09 06:34 | XMS_ITS | Referral Summary ---
Author Organization [facility] Address [address] [place] [address] Care Team Providers Care Hospital Chaplain Name Role Phone Sameer Walsh DO Primary Care Provider [phone] Allergies No known active allergies Medications sertraline (ZOLOFT) 50 mg tablet take 1 tablet by oral route every day 0 0 6 Active lisinopril (PRINIVIL,ZESTR IL) 20 mg tablet take 1 tablet by oral route 2 times every day 0 0 6 Active topiramate (TROKENDI XR) 50 mg capsule,extende d release 24hr take 1 capsule by oral route every day 0 0 6 Active Additional Information Patient not taking.Reported on 11/05/2018 methylPREDNISol one (MEDROL, RADHA,) 4 mg tablet take by Oral route as directed on box 1 0 6 Active Additional Information Patient not taking.Reported on 11/05/2018 meloxicam (MOBIC) 7.5 mg tablet take 1 tablet by oral route 2 times every day 60 3 6 Active Additional Information Patient not taking.Reported on 11/05/2018 PROAIR HFA 90 mcg/actuation inhaler 9 Active gabapentin (NEURONTIN) 300 mg capsule TAKE 1 CAPSULE BY MOUTH EVERY 8 HOURS 0 8 Active ibuprofen (ADVIL,MOTRIN) 800 mg tablet Take 800 mg by mouth 3 (three) times a day. 0 8 Active predniSONE (DELTASONE) 20 mg tablet 9 Active sertraline (ZOLOFT) 25 mg tablet TAKE 1 TABLET BY ORAL ROUTE EVERY DAY WITH A 50MG TO EQUAL 75MG 0 8 Active Active Problems No known active problems Social History Tobacco Use Types Packs/Day Years Used Date Smoking Tobacco: Never Smokeless Tobacco: Never Alcohol Use Standard Drinks/Week Comments No 0 (1 standard drink = 0.6 oz pur e alcohol) Comments Unknown Sex and Gender Information Value Date Recorded Sex Assigned at Not on file Legal Sex Female 4:08 AM CRACKLING PRESS OPERATOR Gender Identity Not on file Sexual Orientation Not on file Last Filed Vital Signs Vital Sign Reading Time Taken Comments Blood Pressure 152/87 11/05/2018 8:10 AM CRACKLING PRESS OPERATOR Pulse 71 11/05/2018 8:10 AM CRACKLING PRESS OPERATOR Temperature - - Respiratory Rate - - Oxygen Saturation - - Inhaled Oxygen Concentration - - Weight 98.4 kg (217 lb) 11/05/2018 8:10 AM CRACKLING PRESS OPERATOR Height 162.6 cm (5' 4 ) 11/05/2018 8:10 AM CRACKLING PRESS OPERATOR Body Mass Index 37.25 11/05/2018 8:10 AM CRACKLING PRESS OPERATOR Plan of Treatment Not on file Insurance Care Teams Hospital Chaplain Relationship Specialty Start Date End Date Sameer Walsh DO PCP - General 01/29/17
--- OUTSIDE RECORDS SUMMARY | 2024-11-09 06:34 | XMS_ITS | Data Portability ---
Author Organization [facility] Address [address] [place] [place] [address] Assessment Encounter Date Assessment Date Assessment LastModified by Organization Details LastModified Time 10/15/2024 10/15/2024 Annual gynecological exam performed. Patient will come back in a year unless there are new symptoms. [email or web address] Not available 10/15/2024 14:25:04 Plan of Treatment Reminders Order Date Submit Date Provider Last Modified By Organization Details Last Modified Time Details Appointments None recorded. Lab pap, IG + HR HPV - HPV regardless but if HPV is positive need subtyping 16,18/45 2023 024 [facility] (Lab), [address], [place], [address], 5 07:46:25 Referral None recorded. Procedures None recorded. Surgeries None recorded. Imaging None recorded. Medication Orders None recorded. Patient TargetsNo targets recorded. Patient InstructionsNo instructions recorded. Reason for Referral None Reported. Results Created Date Observation Date Name Description Value Unit Range Abnormal Flag Note LastModifiedBy Organization Detail LastModifiedTime 10/15/20 24 10/15/2024 IMAGE GUIDE D PAP AND HPV REGAR DLESS image guided Pap, HPV regardless of Pap result SEE RESULT S BELOW CASE REPOR T: Cytol ogy Gynec ologi ryan Repor t Case: [id number] Autho rimaryn g Provi tye: Dermo dy, Alina , ANP, SOFTWARE INTERN Colle cted: 10/15 1513 Order ing Locat ion: [place] [facility] Recei shreya: 10/16 0721 First Scree n: Rosa Mitchell, CT Speci men: Helen mccarthy Pap - Image d, Cervi x STATE MENT OF ADEQU ACY: Satis facto ry for evalu ation Trans forma tion zone compo nent absen t ----- ----- ----- ----- ----- ----- ----- ----- ----- ----- ----- ----- ----- ----- ----- ----- ----- ---- FINAL DIAGN OSIS: Negat jasmin for Intra epith elial Lesovi borges or Andria yoder ([facility]) . Elect cheri campbell luz marina d by Rosa Mitchell , CT on 025 at 0642 PLASTICS FITTER ----- ----- ----- ----- ----- ----- ----- ----- ----- ----- ----- ----- ----- ----- ----- ----- ----- ---- HPV RESUL TS: HPV mRNA E6/E7 : No HPV mRNA Detec omar NOTE: This high risk HPV mRNA assay detec ts fourt een high- risk HPV types (16, 18, 31, 33, 35, 39, 45, 51, 52, 56, 58, 59, 66, 68) witho ut diffe renti ation . COMME NT: This speci men was revie wed by a Cytot echno logis t and/o r Patho logis t (as indic ated in this repor t) after evalu ation using the Thinp rep Imagi ng Syste m. CLINI RYAN INFOR MATIO N: Menst rual Statu s: LMP (if appli cable ): Clini ryan Histo ry/Pr eviou s Pap: Type of Neopl joyce (if appli cable ): Signi fican t Clini ryan Findi ngs: Other Histo ry: Hormo isaias (if appli cable ): PAP EDUCA JESUS L NOTE: The Pap Test is a scree fabio test with an inher ent false negat jasmin rate. Liqui d-bas ed sampl ing may decre ase, but will not elimi elham, false negat jasmin resul ts. A negat jasmin resul t does not precl ude the prese nce and/o r devel opmen t of disea se, since the prese nce of abnor mal cells in the sampl e depen ds on the locat ion of the lesio n and sampl ing techn ique. Yosvany nued regul ar scree fabio is the best metho d of cance r preve ntion . If repor omar cytol ogic findi ng do not corre late with physi ryan and/o r histo rical findi ngs, furth er inves tigat ion is recom indira d, as clini cheryl angela nted. Not Available [facility] (Lab) [address], [place], [address], 10/29/2024 07:46:25 Result Notes None recorded. Procedures Surgical History Date Name Laterality Status Provider Name and Address Organization Details Recorded Time 01/27/20 07 procedure on nerve completed [facility] 10/15/2024 14:36:53 07/28/19 99 Cholecystectomy completed [facility] 10/15/2024 14:36:32 04/02/19 83 Caesarean Section completed [facility] 10/15/2024 14:32:28 Imaging Results None recorded. Procedure Notes None recorded. Medical Equipment None Reported. Medications Name Sig Start Date Stop Date Status Note LastModified by Organization Details LastModified Time amoxicillin 500 mg capsule TAKE 1 CAPSULE BY MOUTH TWICE A DAY FOR 10 DAYS 10/15 completed Not Available Not Available Not Available cetirizine 10 mg tablet TAKE 1 TABLET BY MOUTH EVERY DAY active Not Available Not Available No t Available atorvastati n 10 mg tablet TAKE 1 TABLET BY MOUTH EVERYDAY AT BEDTIME active Not Available Not Available No t Available azithromyci n 250 mg tablet TAKE 2 TABLETS BY MOUTH TODAY, THEN TAKE 1 TABLET DAILY FOR 4 DAYS DIRECTED 10/15 completed Not Available Not Available Not Available ibuprofen 800 mg tablet TAKE 1 TABLET BY MOUTH EVERY 6 HOURS 10/15 completed Not Available Not Available Not Available hydrocodone 5 mg-acetamin ophen 325 mg tablet TAKE 1 TABLET BY MOUTH EVERY 4 HOURS NEEDED FOR PAIN 10/15 completed Not Available Not Available Not Available sertraline 100 mg tablet TAKE 1 TABLET BY MOUTH AT BEDTIME active Not Available Not Available No t Available tramadol 50 mg tablet TAKE 1 TABLET BY MOUTH EVERY 6 HOURS TAKE 1-2 EVERY 6 HOURS, NEEDED FOR PAIN 10/15 completed Not Available Not Available Not Available amoxicillin 875 mg tablet TAKE 1 TABLET BY MOUTH EVERY 12 HOURS 10/15 completed Not Available Not Available Not Available dexamethaso ne 4 mg tablet PLEASE SEE ATTACHED FOR DETAILED DIRECTION S 10/15 completed Not Available Not Available Not Available codeine 10 mg-guaifene sin 100 mg/5 mL oral liquid TAKE 5 ML BY MOUTH EVERY 6 HOURS NEEDED FOR COUGH. TAKE WITH FOOD & PLENTY OF WATER 10/15 completed Not Available Not Available Not Available mupirocin 2 % topical ointment APPLY 1 APPLICATI ON ONTO THE AFFECTED AREA(S) ON THE SKIN TWICE DAILY 10/15 completed Not Available Not Available Not Available nystatin 100,000 unit/gram topical powder APPLY 1 APPLICATI ON ONTO THE AFFECTED AREA(S) ON THE SKIN TWICE DAILY 10/15 completed Not Available Not Available Not Available methylpredn isolone 4 mg tablets in a dose pack TAKE 6 TABLETS ON DAY 1 DIRECTED ON PACKAGE AND DECREASE BY 1 TAB EACH DAY FOR A TOTAL OF 6 DAYS 10/15 completed Not Available Not Available Not Available losartan 100 mg tablet TAKE 1 TABLET BY MOUTH DAILY active Not Available Not Available No t Available fluticasone propionate 50 mcg/actuati on nasal spray,suspe nsion INSTILL 1-2 SPRAYS INTO EACH NOSTRIL DAILY 10/15 completed Not Available Not Available Not Available naproxen 500 mg tablet TAKE 1 TABLET BY MOUTH TWICE A DAY WITH FOOD 10/15 completed Not Available Not Available Not Available cholecalcif elsi (vitamin D3) 1,250 mcg (50,000 unit) capsule TAKE 1 CAPSULE BY MOUTH ONCE WEEKLY active Not Available Not Available No t Available Mounjaro 5 mg/0.5 mL subcutaneou s pen injector INJECT 1 SYRINGE SUBCUTANE OUSLY ONCE A WEEK 10/15 completed Not Available Not Available Not Available Mounjaro 10 mg/0.5 mL subcutaneou s pen injector INJECT 10 MG SUB-Q ONCE A WEEK 10/15 completed Not Available Not Available Not Available Mounjaro 12.5 mg/0.5 mL subcutaneou s pen injector active Not Available Not Available Not Available Mounjaro 2.5 mg/0.5 mL subcutaneou s pen injector INJECT 2.5MG UNDER THE SKIN WEEKLY FOR 4 WEEKS 10/15 completed Not Available Not Available Not Available Vitals Date Recorded Body height Body mass index (BMI) Body weight Systolic blood pressure Diastolic blood pressure Provider Name and Address Organization Details Last Updated DateTime 10/15/2024 162.56 cm 34.6 kg/m2 92817.5 g 123 mm[Hg] 78 mm[Hg] [facility] 14:29:00 Social History Question Answer Notes LastModified by Organizat ion Details LastModified Time Do You Have An Advance Directive? No Information not available 10/15/2024 What Is Your Level Of Alcohol Consumption? None [email or web address] Information not available 10/15/2024 Are You Blind Or Do You Have Difficulty Seeing? No [email or web address] Information not available 10/15/2024 What Is Your Level Of Caffeine Consumption? Moderate [email or web address] Information not available 10/15/2024 How Much Tobacco Do You Chew? None Information not available 10/15/2024 In The 14 Days Before Symptom Onset, Have You Had Close Contact With A Laboratory-confir med COVID-19 While That Case Was Ill? No Information not available 10/15/2024 In The 14 Days Before Symptom Onset, Have You Had Close Contact With A Person Who Is Under Investigation For COVID-19 While That Person Was Ill? No [email or web address] Information not available 10/15/2024 Have You Been To An Area Known To Be High Risk For COVID-19? No Information not available 10/15/2024 Are You Deaf Or Do You Have Serious Difficulty Hearing? No [email or web address] Information not available 10/15/2024 What Type Of Diet Are You Following? REGULAR [email or web address] Information not available 10/15/2024 What Is The Highest Grade Or Level Of School You Have Completed Or The Highest Degree You Have Received? [id number] Information not available 10/15/2024 What Is Your Occupation? [employer] [email or web address] Information not available 10/15/2024 Are There Any Guns Present In Your Home? Yes Information not available 10/15/2024 Do You Use Protection During Sex? No [email or web address] Information not available 10/15/2024 Do You Use Your Seat Belt Or Car Seat Routinely? Yes [email or web address] Information not available 10/15/2024 Do You Have Smoke And Carbon Monoxide Detectors In Your Home? Yes [email or web address] Information not available 10/15/2024 How Much Tobacco Do You Smoke? No [email or web address] Information not available 10/15/2024 Do You Feel Stressed (tense, Restless, Nervous, Or Anxious, Or Unable To Sleep At Night)? [id number] [email or web address] Information not available 10/15/2024 Do You Use Any Illicit Or Recreational Drugs? No Information not available 10/15/2024 Do You Use Sunscreen Routinely? No Information not available 10/15/2024 Have You Used IV Drugs? No [email or web address] Information not available 10/15/2024 Sex: Unknown Functional Status Question Answer Note LastModified by Organization D etails LastModified Time Are you able to walk? YESWOREST [email or web address] Information not available 10/15/2024 What is your exercise level? None [email or web address] Information not available 10/15/2024 Mental Status None recorded. Family History Relationship Description Onset Age of this Age Resolved Age Notes LastModified by Organization Details LastModified Time Brother Heart disease [email or web address] Not available 2023 14:25:20 Sister Malignant tumor of colon 68 [email or web address] Not available 2023 14:42:00 Medical History Condition Response Allergies (Food, seasonal, environmental ) N Other N Breast Cancer N Drug/Latex Allergies/Reactions N Blood Transfusion N Dermatologic Disorders N Lung Disease N Defects or Inherited Disease N Breast Problem N Gestational Diabetes N Hematologic disorders N Anesthesia Complications N History of STI N Deep Vein Thrombosis N Polycystic ovary syndrome N Anxiety Disorder N Autoimmune disease N Arthritis N Infertility N Polyps N Acid Reflux (GERD) N History of abnormal pap N Cancer N Stroke N Varicosities N Neurologic/Epilepsy N Endometriosis N High Cholesterol N Headaches N Fibromyalgia N Kidney Disease N Heart Problems N Kidney or Bladder Problems N Thyroid Problems N GI Problems N Eating Disorder N Anemia N Art (IVF or FET) N Psychiatric Illness N Ovarian Cancer N Diabetes N Pulmonary (TB, Asthma) N Hepatitis/Liver Disease N No Past Medical History N Eczema N Urinary Tract Infection N Abuse/Domestic Violence N Asthma N Trauma/Violence N Depression/ depression N Heart Disease N Pre-Eclampsia N Hypertension N Osteoporosis N Thrombophilias N Gynecological History Statement/Question Response If Post Menopausal, Age at Menopause 50 Date of Last Mammogram Date of Last Colonoscopy LMP Unknown N Obstetrics History GPAL:G 2 P 2 0 0 2 Type Value Full Term 2 Living 2 Total 2 Past Encounters Encounter ID Performer Location Encounter Start Date Encounter Closed Date Diagnosis/Indication Diagnosis SNOMED-CT Code Diagnosis ICD10 Code Diagnosis Note [id number] [facility] [address] [address] 10/15/2024 14:24:31 10/15/2024 14:55:13 Gynecologic examination [id number] Z01.419 Annual gynecologi ryan exam performed. Patient will come back in a year unless there are new symptoms. Suggest Calcium with Vitamin D if not eating in diet. Patient advised to get annual flu shot. Recommend yearly physicals and perform monthly breast exams. Genetic testing is available for patients with family history of cancer. Engage in safe sexual practices, use condoms. Encouraged to have daily exercise. Avoid tobacco and illicit drugs, moderation of alcohol. If BMI greater than 25 dietary consult advised. If you have any questions please call or email. mammogram- pt has scheduled 11/03/2024 at [facility] colon cancer screening - PCP to schedule colonoscop y at [facility] (sister has hx colon cancer) DEXA scan- due at age 65 y/o Pap smear- pap w/ HPV updated laboratory evaluation - PCP STI testing - declined Health Concerns Section Related Observation LastModified by Organization Detai ls LastModified Time None Recorded Concern Status LastModified by Organization Details LastModified Time None Recorded Advance Directives Directive N: Payers Encounter Date Sequence Insurance Name Policy Number Policy [place] Covered Member ID [place] Member ID Guarantor Name 10/15/2024 1 [facility] [id number] Radha Grant [id number] Radha Rudy Notes Date Note Type Note Provider Name and Address Organization Details Recorded Time 10/15/2024 text/html Annual 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 Setter Post-MenopausalRep orted bypatient.Menopaus al Symptoms:no menopausal symptoms; normal vaginal lubrication Vaginal Bleeding:history of menopause having occurred; no history of post menopausal bleeding Urinary Symptoms:no hematuria; no incontinence; no nocturia; no urinary frequency Vulva:no genital lesion; no vulvar atrophy Vagina:normal vaginal discharge; no vaginal atrophy Breast:no breast lump; no nipple discharge; no breast pain Sexual Complaints:no sexual complaints Psychological Symptoms:no depression; no anxiety Preventive Measures:encourage regular mammograms starting age 40; encourage self breast examination; encourage regular exercise; encourage no tobacco use New patient presents to establish care. 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 Sari Dobson [facility] 10/15/2024 16:05:03 OBGyn Episode Ob Episode Information Episode Created Date Number of Fetuses Patient Bloodtype Patient rh Status Prepregnancy Weight lbs Domestic Partner Domestic Partner Phone Father Name Livestock Trucker Status 10/15/20 24 1 CLOSED Fetus Data First Name Last Name Admitted to NICU Weight (g) Sex Living Outcome Pediatric Complications Fetus ID Race Codes Race Delivery Type 3089.86 8704 M Full Term [id number] Primary Rahul Calculation Initial Rahul Date Initial Exam Date Initial Exam Provider Initial Ultrasound Date Last Menstrual Period Date Ultra Sound Weeks Gestation 0 Eighteen To Twenty Week Rahul Update Ultra Sound Date Fundal Height At Umbil Quickening Date Ultra Sound Latest Weeks Gestation Final Rahul Confirmed By Final Rahul Confirmed Date Final Rahul Date Ultra Sound Latest Days Gestation 0 0 Menstrual History Last Menstrual Date Menses Monthly On Bcp Conception Prior Menses Frequency Hcg Plus Date Menarche Onset Age Delivery Information Delivery Date Delivery Type Labor Anesthesia Weeks Gestation Incision Type Labor Labor Length Hrs Delivered By Post Complications Tubal Sterilization Discharge Date Comments 3 38 Discharge Information Feeding Method Contraceptive Method Maternal HG B and HCT Levels Ob Episode Information Episode Created Date Number of Fetuses Patient Bloodtype Patient rh Status Prepregnancy Weight lbs Domestic Partner Domestic Partner Phone Father Name Livestock Trucker Status 10/15/20 24 1 CLOSED Fetus Data First Name Last Name Admitted to NICU Weight (g) Sex Living Outcome Pediatric Complications Fetus ID Race Codes Race Delivery Type 2579.57 7704 M Full Term [id number] Primary Rahul Calculation Initial Rahul Date Initial Exam Date Initial Exam Provider Initial Ultrasound Date Last Menstrual Period Date Ultra Sound Weeks Gestation 0 Eighteen To Twenty Week Rahul Update Ultra Sound Date Fundal Height At Umbil Quickening Date Ultra Sound Latest Weeks Gestation Final Rahul Confirmed By Final Rahul Confirmed Date Final Rahul Date Ultra Sound Latest Days Gestation 0 0 Menstrual History Last Menstrual Date Menses Monthly On Bcp Conception Prior Menses Frequency Hcg Plus Date Menarche Onset Age Delivery Information Delivery Date Delivery Type Labor Anesthesia Weeks Gestation Incision Type Labor Labor Length Hrs Delivered By Post Complications Tubal Sterilization Discharge Date Comments 3 38 Discharge Information Feeding Method Contraceptive Method Maternal HG B and HCT Levels
--- OUTSIDE RECORDS SUMMARY | 2024-11-09 06:34 | XMS_ITS | Continuity of Care Document ---
Author Organization [facility] Address [address] [place] [address] Phone Care Team Providers Care Manager Drilling Name Role Phone Parker OD, Alvin Unavailable Unavailable Advance Directives Directive Yes / No Effective Date File Name No Information Encounters Encounter Description Practice Location Reason(s) For Visit Diagnoses Date Provider Providers Copied on Encounter [facility], [address], [place], [place], [id number], [place] tel:[phone] [facility] No Information Telly-[id number] [phone] Parker OD Alvin. [address], [place], [address], [place]. tel:[phone] Family History Family Member Type Diagnosis Age At Onset No Information Payers Payer name Insurance type Covered constitution party ID Authoriza tion(s) No Information Social History Type Description Quantity Date Captured Comments Sex Female Smoking Status No Information Chief Complaint And Reason For Visit No Information Reason For Referral Reason For Referral No Information History Of Present Illness Encounter Date Complaint History Of Prese nt Illness No Information Functional Status Date Functional Assessmen t No Information Instructions Date Instruction Additional Infor mation No Information Assessments Type Assessment Date No Information Patient Care Teams Name Effective Dates (start - stop) Status Members No Information
--- OUTSIDE RECORDS SUMMARY | 2024-11-09 06:34 | XMS_ITS | Encounter Summary ---
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 Office Visit [facility] Orthopedics and Sports Medicine [address] [place] [id number] Pam Tobias MD [address] [place] [address] Lateral epicondylitis of right elbow (Primary Dx) Social History Tobacco Use Types Packs/Day Years Used Date Smoking Tobacco: Never Smokeless Tobacco: Never Alcohol Use Standard Drinks/Week Comments No 0 (1 standard drink = 0.6 oz pur e alcohol) Comments Unknown Sex and Gender Information Value Date Recorded Sex Assigned at Not on file Legal Sex Female 4:08 AM TILLER WORKER Gender Identity Not on file Sexual Orientation Not on file documented as of this encounter Last Filed Vital Signs Vital Sign Reading Time Taken Comments Blood Pressure 152/87 11/05/2018 8:10 AM TILLER WORKER Pulse 71 11/05/2018 8:10 AM TILLER WORKER Temperature - - Respiratory Rate - - Oxygen Saturation - - Inhaled Oxygen Concentration - - Weight 98.4 kg (217 lb) 11/05/2018 8:10 AM TILLER WORKER Height 162.6 cm (5' 4 ) 11/05/2018 8:10 AM TILLER WORKER Body Mass Index 37.25 11/05/2018 8:10 AM TILLER WORKER documented in this encounter Progress Notes * Pam Tobias MD - 11/05/2018 8:00 AM CST FOLLOW UP VISIT Subjective CHIEF COMPLAINT She had concerns including Pain of the Right Elbow. HISTORY OF PRESENT ILLNESS Mrs. Grant presents today with complaints of right elbow pain for 2 months, the pain started after she hit her elbow on a car mirror. She denies swelling, has intermittent numbness and tingling on the backside of her 2nd through 4th fingers. She is right-hand dominant. She is taking ibuprofen as needed for pain. The pain is sharp, burning, dull, aching, moderate to severe, continues, activityrelated, positive night pain. Using her hand and arm makes the pain worse, pain medication makes the pain better. Pain Assessment Pain Descriptors: Numbness, Tingling, Sharp, Aching, Burning, Dull Pain Frequency: Constant/continuous Date Pain First Started: 09/05/18 Aggravating Factors: (activity related, usage and night pain) Result of Injury: Yes (hit elbow on car side mirror) MEDICATIONS She has a current medication list which includes the following prescription(s): ibuprofen, lisinopril, proair hfa, sertraline, sertraline, gabapentin, meloxicam, medrol (elizabeth), prednisone, and trokendi xr. REVIEW OF SYSTEMS Review of Systems Constitutional: Positive for appetite change. Negative for activity change, chills and fever. HENT: Negative. Negative for congestion, dental problem, ear pain, hearing loss and voice change. Eyes: Negative. Negative for pain and visual disturbance. Respiratory: Positive for cough. Negative for apnea, chest tightness and shortness of breath. Cardiovascular: Negative. Negative for chest pain, palpitations and leg swelling. Gastrointestinal: Negative. Negative for blood in stool, constipation, diarrhea, nausea and vomiting. Endocrine: Negative for cold intolerance and heat intolerance. Genitourinary: Negative. Negative for difficulty urinating and hematuria. Musculoskeletal: Negative. Skin: Negative. Negative for color change, rash and wound. Allergic/Immunologic: Negative for environmental allergies. Neurological: Positive for headaches. Negative for dizziness, syncope and numbness. Hematological: Negative for adenopathy. Does not bruise/bleed easily. Psychiatric/Behavioral: Negative. Negative for confusion. The patient is not nervous/anxious and isnot hyperactive. All other systems reviewed and are negative. Objective PHYSICAL EXAM BP 152/87 Pulse 71 Ht 162.6 cm (5' 4 ) Wt 98.4 kg (217 lb) BMI 37.25 kg/m?? C Spine C spine exam is normal. Inspection normal inspection Palpation The patient has normal palpation. Range of motion The patient has normal range of motion. Right strength The patient has 5/5 strength throughout. Left strength The patient has 5/5 strength throughout. Right neurovascular Patient has normal light touch sensation. The patient has normal right sided vascular. Left neurovascular The patient has normal left sided vascular. The patient has normal light touch sensation. Right reflexes The patient has normal reflexes on the right side of their body. Left reflexes The patient has normal reflexes on the left side of their body. Right side Spurling's: negative Left side Spurling's: spurling's Right shoulder The patient has normal inspection, palpation, range of motion, strength, and stability of the rightshoulder. Inspection The patient has normal inspection of the right shoulder. Palpation Tenderness is present. The patient has tenderness in the posterior shoulder area(s). Range of motion The patient has normal range of motion of the right shoulder. Strength The patient has 5/5 strength throughout the right shoulder. Neurovascular The patient has normal vascular on the right side of her body. She has normal sensation on the right side of her body. Tests Cross arm: negative Drop arm: negartive Hawkin's test: negative Impingement signs:negative Glenna's: negative Neer's: negative Pomeroy's: negative Speed's: negative Spurling's: negative Left shoulder The patient has normal inspection, palpation, range of motion, strength, and stability of the left shoulder. Inspection The patient has normal inspection of the left shoulder. Palpation The patient has normal palpation of the left shoulder. Range of motion The patient has normal range of motion of the left shoulder. Strength The patient has 5/5 strength throughout. Neurovascular The patient has normal vascular on the left side of their body. The patient has normal sensation on the left side of their body. Tests Cross am: negative Drop arm: negative Impingement signs:negative Glenna's: glenna's Neer's: negative Pomeroy's: negative Speed's: negative Spurling's: negative Right elbow Inspection The patient has normal inspection of the right elbow. Palpation Tenderness: present. The patient has tenderness in the lateral epicondyle area(s). Range of motion The patient has normal range of motion of the right elbow. Stability The patient has normal stability of the right elbow. Strength The patient has 5/5 strength throughout. Neurovascular The patient has normal vascular on the right side of their body. The patient has normal sensation. Tests Varus: negative Valgus: negative Tinel's sign: negative Left elbow The patient has normal inspection, palpation, range of motion, strength, and stability of the left elbow. Inspection The patient has normal inspection of the left elbow. Palpation The patient has normal palpation of the left elbow. Range of motion The patient has normal range of motion of the left elbow. Stability The patient has normal stability of the left elbow. Strength The patient has 5/5 strength throughout. Neurovascular The patient has normal vascular on the left side of their body. The patient has normal sensation on the left side of their body. REVIEW OF X-RAYS/STUDIES/LABS MRI of the right elbow [facility] imaging October 30, 2018: Images not available for my review, per report, moderate tendinosis of the common extensor tendon origin with tiny internal partial tear and mild overlying peritendinitis. Thickening of the ulnar nerve proximal to the cubital tunnel, focal ulnar neuritis. Nonspecific focal edema of the antecubital region, possibly iatrogenic if there has been recent IV access. Mild degenerative changes in the elbow joint. Assessment/Plan Radha was seen today for pain. Diagnoses and all orders for this visit: Lateral epicondylitis of right elbow PLAN Reviewed x-ray images with Mrs. Grant, [facility] to [facility] [place] for further evaluation and treatment. Continue [id number] medication as needed for pain. Wear elbow strap withactivities. Ice for 20 min as needed for pain and swelling. Return to clinic in 4 weeks for repeat e valuation, she should return sooner if she is developing worsening of her symptoms. She is in full understanding and in agreement with the plan, and all of her questions were answered. CHRIS Post MD ER WORKER documented in this encounter Miscellaneous Notes * Addendum Note - Austin Ayon ATC - 11/05/2018 8:00 AM CSTAddended by: AUSTIN AYON on: 11/05/2018 11:32 AM Modules accepted: Orders ER WORKER documented in this encounter Plan of Treatment Not on file documented as of this encounter Visit Diagnoses Diagnosis Lateral epicondylitis of right elbow- Primary documented in this encounter Historical Medications * This list may reflect changes made after this encounter. sertraline (ZOLOFT) 25 mg tablet TAKE 1 TABLET BY ORAL ROUTE EVERY DAY WITH A 50MG TO EQUAL 75MG 0 09/15/2018 predniSONE (DELTASONE) 20 mg tablet 11/03/2018 ibuprofen (ADVIL,MOTRIN) 800 mg tablet Take 800 mg by mouth 3 (three) times a day. 0 10/03/2018 gabapentin (NEURONTIN) 300 mg capsule TAKE 1 CAPSULE BY MOUTH EVERY 8 HOURS 0 10/03/2018 PROAIR HFA 90 mcg/actuation inhaler 11/04/2018 added in this encounter Care Teams Well Logger Relationship Specialty Start Date End Date Sameer Walsh DO PCP - General 01/29/17 documented as of this encounter
--- OUTSIDE RECORDS SUMMARY | 2024-11-09 06:34 | XMS_ITS | Clinical Summary ---
Author Organization [facility] Address [address] [place] [address] Care Team Providers Care Engineering Analyst Name Role Phone Sameer Walsh DO Primary Care Provider +1- [phone] Allergies No known active allergies Medications sertraline [...] Active Active Problems No known active problems Surgical History Surgery Date Site/Laterality Comments TONSILLECTOMY Tonsillectomy SPINAL FUSION 01/26/2017 - 02/24/2017 CHOLECYSTECTOMY 10/28/1998 - 10/27/1999 SECTION 03/28/1983 - 04/26/1983 NERVE REPAIR 10/28/2009 - 10/27/2010 left arm Medical History Medical History Date Comments Hx Other Medical 3 Hx Other Medical Gallbladder Hx Other Medical periformis; Com ments: JNS 05/10/2016 - Depression Hypertension Family History Medical History Relation Name Comments Cancer Other 1 Family history of Cancer, unknown; Cancer Other 2 Family history of Cancer; Heart disease Other 3 Family history of Heart problems; Blood Clot Neg Hx Hypertension Neg Hx Relation Name Status Comments Other 1 Other 2 Other 3 Social History Tobacco Use Types Packs/Day Years Used Date Smoking Tobacco: Never Smokeless Tobacco: Never Alcohol Use Standard Drinks/Week Comments No 0 (1 standard drink = 0.6 oz pur e alcohol) Comments Unknown Sex and Gender Information Value Date Recorded Sex Assigned at Not on file Legal Sex Female 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 Gender Identity Not on file Sexual Orientation Not on file Obstetrics History Last Filed Vital Signs Vital Sign Reading Time Taken Comments Blood Pressure 152/87 11/05/2018 8:10 AM ELEMENTARY SCHOOL TEACHER Pulse 71 11/05/2018 8:10 AM ELEMENTARY SCHOOL TEACHER Temperature - - Respiratory Rate - - Oxygen Saturation - - Inhaled Oxygen Concentration - - Weight 98.4 kg (217 lb) 11/05/2018 8:10 AM ELEMENTARY SCHOOL TEACHER Height 162.6 cm (5' 4 ) 11/05/2018 8:10 AM ELEMENTARY SCHOOL TEACHER Body Mass Index 37.25 11/05/2018 8:10 AM ELEMENTARY SCHOOL TEACHER Plan of Treatment Not on file Insurance [facility] CHOICE PLUS Care Teams Engineering Analyst Relationship Specialty Start Date End Date Sameer Walsh DO PCP - General 01/29/17
--- OUTSIDE RECORDS SUMMARY | 2024-11-09 06:34 | XMS_ITS | Encounter Summary ---
Author Organization [facility] Address [address] [place] [address] Care Team Providers Care Director Of Catering Sales Name Role Phone Sameer Walsh DO Primary Care Provider [phone]- [phone] Encounter Details Date Type Department Care Team (Latest Contact Info) Description 02/17/2018 9:47 AM CDT - 02/17/2018 11:59 PM CDT Hospital Encounter [facility] - Imaging [address] [place] [address] Dru Tobias MD [address] [facility] [address] [place] [address] Post laminectomy syndrome Discharge Disposition: Discharge to home or self care Social History Tobacco Use Types Packs/Day Years Used Date Smoking Tobacco: Never Assessed Comments Unknown Sex and Gender Information Value Date Recorded Sex Assigned at Not on file 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 Gender Identity Not on file Sexual Orientation Not on file documented as of this encounter Medications at Time of Discharge lisinopril (PRINIVIL,ZESTRIL ) 20 mg tablet take 1 tablet by oral route 2 times every day 0 0 05/10/2016 meloxicam (MOBIC) 7.5 mg tablet take 1 tablet by oral route 2 times every day 60 3 08/06/2016 methylPREDNISolon e (MEDROL, RADHA,) 4 mg tablet take by Oral route as directed on box 1 0 07/10/2016 sertraline (ZOLOFT) 50 mg tablet take 1 tablet by oral route every day 0 0 05/10/2016 topiramate (TROKENDI XR) 50 mg capsule,extended release 24hr take 1 capsule by oral route every day 0 0 05/10/2016 documented as of this encounter Discharge Disposition Disposition Code Departure Means Destination Discharge to home or self care documented in this encounter Plan of Treatment Not on file documented as of this encounter Procedures Procedure Name Priority Date/Time Associated Diagnosis Comments XR SPINE LUMBAR 2 OR 3 VIEWS Schedule Routine, Read Routine (OP Routine) 02/17/2018 10:28 AM CDT Post laminectomy syndrome documented in this encounter Results * XR Spine Lumbar 2 or 3 Views (02/17/2018 10:28 AM CDT) Anatomical Region Laterality Modality Spine N/A Computed Radiogr aphy Impressions 02/17/2018 2:23 PM CDT Posterior instrumented fusion spanning L3-L5. ??No definite changes compared to 08/14/2017. ??Anterolisthesis of L3 on L4 is increased compared to 03/13/2017. Electronically signed by: Colton Carr MD Narrative 02/17/2018 2:23 PM CDT EXAM: 2-3 Radiographic views of the lumbar spine. CLINICAL HISTORY: Post-laminectomy syndrome. COMPARISON: 08/14/2017 and 03/13/2017. FINDINGS: Posterior instrumented fusion spans L3-L5. ??Similar alignment of hardware. ??No hardware fracture. Trace anterolisthesis of L3 on L4, L4 on L5. ??Both of these findings are fairly similar to 08/14/2017. ??Anterolisthesis of L3 on L4 is increased compared to 03/13/2017. Normal vertebral body height without evidence of acute fracture. Degenerative endplate changes in the lower lumbar spine. ??Facet arthropathy at L5-S1. Right upper quadrant surgical clips and aortoiliac atherosclerotic calcifications noted. Procedure Note Colton Carr MD - 02/17/2018 EXAM: 2-3 Radiographic views of the lumbar spine. CLINICAL HISTORY: Post-laminectomy syndrome. COMPARISON: 08/14/2017 and 03/13/2017. FINDINGS: Posterior instrumented fusion spans L3-L5. Similar alignment of hardware. No hardware fracture. Trace anterolisthesis of L3 on L4, L4 on L5. Both of these findings are fairly similar to 08/14/2017. Anterolisthesis of L3 on L4 is increased compared to 03/13/2017. Normal vertebral body height without evidence of acute fracture. Degenerative endplate changes in the lower lumbar spine. Facet arthropathy at L5-S1. Right upper quadrant surgical clips and aortoiliac atherosclerotic calcifications noted. IMPRESSION: Posterior instrumented fusion spanning L3-L5. No definite changes compared to 08/14/2017. Anterolisthesis of L3 on L4 is increased compared to 03/13/2017. Electronically signed by: Colton Carr MD Dru Tobias MD IMG XR PROCEDURES Final Resul t documented in this encounter Visit Diagnoses Diagnosis Post laminectomy syndrome Postlaminectomy syndrome, unspecified region documented in this encounter Care Teams Director Of Catering Sales Relationship Specialty Start Date End Date Sameer Walsh DO PCP - General 01/29/17 documented as of this encounter
--- OUTSIDE RECORDS SUMMARY | 2024-11-09 06:35 | XMS_ITS | Encounter Summary ---
Author Organization [facility] Healthcare Address [address] [place] [address] Care Team Providers Care Auto Body Mechanic Apprentice Name Role Phone Kris Walsh DO Primary Care Provider +1- [phone] Encounter Details Date Type Department Care Team (Latest Contact Info) Description 01/29/2017 10:54 AM CDT - 01/31/2017 6:30 PM CDT Hospital Encounter [facility] [address] [place] [address] Judith Stone MD [address] [facility] [address] [place] [address] Discharge Disposition: Discharge to home, home health skilled care Social History Tobacco Use Types Packs/Day Years Used Date Smoking Tobacco: Never Assessed Comments Unknown Sex and Gender Information Value Date Recorded Sex Assigned at Not on file 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 Gender Identity Not on file Sexual Orientation Not on file documented as of this encounter Last Filed Vital Signs Vital Sign Reading Time Taken Comments Blood Pressure 131/61 01/31/2017 4:11 PM CDT Pulse 99 01/31/2017 4:11 PM CDT Temperature - - Respiratory Rate - - Oxygen Saturation - - Inhaled Oxygen Concentration - - Weight 94.5 kg (208 lb 5.4 oz) 01/22/2017 2:56 P M CDT Height 162.6 cm (5' 4.02 ) 01/22/2017 2:56 PM CD T Body Mass Index 35.74 01/22/2017 2:56 PM CDT documented in this encounter Discharge Summaries * Miscellaneous, Not In File - 01/31/2017 5:00 AM CDT [facility] JEFFERYMRN: [id number]: [id number] Room No: 2412-ADOB: 1960 Admit Date: 01/29/2017Attending: JUDITH STONE MD Disch. Date: 01/31/2017Dictating: LATISHA BIANCHI Patient Type: IP DISCHARGE SUMMARYPRIMARY CARE PHYSICIANDaviall Walsh, DOADMISSION DIAGNOSISLumbar stenosis.SECONDARY DIAGNOSES1. Hypertension.2. Exercise-induced asthma.3. History of obstructive sleep apnea status post UPP.4. Obesity, with a BMI 35, probable MILES despite surgeryALLERGIESNKDADISCHARGE MEDICATIONS1. Zanaflex 4 mg oral every 8 hours as needed for muscle spasm.2. Percocet 5/325 1-2 tablets oral every 4 hours as needed for pain.3. Zoloft 50 mg oral at bedtime.PROCEDURES THIS ADMISSIONBilateral lumbar laminectomy L3-5 with a posterior spinal fusion L3- 5.HOSPITAL COURSEThe patient was admitted directly to surgery on January 29, 2017 for thediagnosis listed above. Postoperatively she went to the surgical floor underroutine monitoring. Her postoperative course was uneventful. Her diet wasadvanced without nausea or vomiting or other problems. Her indwellingcatheter was removed with spontaneous void. Her home medications wereresumed without incident. The patient received occupational and physicaltherapy evaluation and treatment and was deemed safe to ambulate. Her paincontrol was well managed on oral medications. Of note, the patient was notusing a CPAP device for her history of sleep apnea since she had her surgery.In the hospital she did require a CPAP for apneic periods. She wasinstructed to followup with her primary care physician upon discharge. Onthe day of discharge the patient's wound was clean, dry and intact. Theedges were well approximated with no redness, drainage or swelling. As herpostoperative goals were met, the patient was appropriate for discharged onApr2016.DISPOSITIONThe patient was discharged to home.DISCHARGE INSTRUCTIONSThe patient's discharge activity, wound care and restrictions were per 's preprinted discharge instruction sheet. Highlights were to resumea normal diet with high protein for healing. No lifting over 10 pounds for 4weeks. No bending, lifting, or twisting. Patient was instructed to showerdaily with soap and water, to gently towel dry the incision and report anysigns of infection or fever to Dr. Stone's office promptly. The patientwas instructed no immersion in bathtub, swimming pool, hot tubs or lakes for4 weeks. Patient was instructed to followup with Dr. Stone's office forstaple removal in 10-[address] then [address] Stone's at her pre-arrangedpostop followup appointment.Electronically Authenticated and Edited by:LATISHA Bianchi On 02/04/2017 08:18 AM CDTElectronically Authenticated by:Judith Stone MD On 02/05/2017 10:53 AM CDT VANCE BUCHANANictated by: EMELINA BIANCHI/liu HQ: 02/01/2017 17:29TD: 02/02/2017 11:15 documented in this encounter Medications at Time of Discharge [...] Disposition Code Departure Means Destination Discharge to home, home health skilled care documented in this encounter Miscellaneous Notes * Op Note - Provider, MD Gerard - 01/29/2017 12:00 AM CDT [facility] Patient: RADHA JEFFERY Account: [id number] Room No: 2412-A : 1960 Proc. Date: 01/29/2017 Surgeon: KRIS CORNELL MD Admit Date: 01/29/2017 Disch. Date: 01/31/2017 Patient Type: IP OPERATIVE REPORT SURGEON Kris Cornell MD PREOP DIAGNOSIS Spinal stenosis and segmental instability, L3-4, L4-5. POSTOP DIAGNOSIS Spinal stenosis and segmental instability, L3-4, L4-5. PROCEDURE PERFORMED Bilateral lumbar laminectomy, L3 to 5, Kraig; posterior spinal fusion with local autograft and Charlotte supplementation, L3 to 5, Jatinder; spinal instrumentation with CoreLink Burns pedicle screw system, L3 to 5, Jatinder. HISTORY AND INDICATION This is an individual who has the above-noted pathology refractory to conservative treatment. It was felt that surgery would help relieve her of her symptoms. WHAT WAS DONE Patient was taken to the operating room. General endotracheal anesthesia was induced. She was placed prone on the Yaya frame. Back was sterilely prepped and draped. Midline incision was made. Subperiosteal dissection exposed the spinous process, lamina, facet joint, and transverse processes from L3 to L5. Deep retractors were placed. X-ray verified appropriate surgical level. Dr. Stone then readied the pedicle holes at L3, 4 and 5, and placed wax in the entry holes for later use. I then used the high-speed drill to remove the inferior facets of L3 and L4 bilaterally. I then used a drill to remove the entire lamina and spinous process of L4, 50% of the spinous process and lamina of L3. Ligamentum flavum was carefully dissected from the underlying dura. Kerrison rongeurs were then used to complete the laminectomy and foraminotomy, making sure the L4 and the L5 neural foramens were open. The nerves seemed well decompressed. The wound was irrigated. FloSeal and Gelfoam was placed over the exposed dura. Closure was performed in layers using 0 Vicryl, subcutaneous drain, 2-0 Vicryl, and nova. No complications. Counts were correct. Blood loss was about 300 mL. Electronically Authenticated by: Kris Cornell MD On 02/01/2017 03:25 PM CDT KRIS CORNELL MD DR/liu TD: 01/30/2017 09:28 * Op Note - Provider, MD Gerard - 01/29/2017 12:00 AM CDT [facility] Patient: RADHA JEFFERY Account: [id number] Room No: 2412-A : 1960 Proc. Date: 01/29/2017 Surgeon: JUDITH STONE MD Admit Date: 01/29/2017 Disch. Date: 01/31/2017 Patient Type: IP OPERATIVE REPORT SURGEON Judith Stone MD CO-SURGEON Kris Cornell MD PREOPERATIVE DIAGNOSES 1. Spinal stenosis. 2. Segmental instability. 3. Low back pain. 4. Lumbar radiculopathy. POSTOPERATIVE DIAGNOSES 1. Spinal stenosis. 2. Segmental instability. 3. Low back pain. 4. Lumbar radiculopathy. NAME OF PROCEDURE 1. Posterolateral arthrodesis L3 to L4, L4 to L5, Dr. Stone. 2. Posterior segmental fixation L3 to L5 (CoreLink Burns), Dr. Stone. 3. Wide bilateral lumbar laminectomies, medial facetectomies and foraminotomies L3 to L5, Dr. Cornell. 4. Use of local autograft, Dr. Stone. ANESTHESIA General endotracheal anesthesia. INDICATIONS The patient is a 56-year-old female who presented with severe back and leg pain. Workup revealed lumbar stenosis at L3-4 and L4-5. There was also a degenerative spondylolisthesis of L4 on L5. Risks, alternatives and benefits of the procedure were explained to the patient and she wished to proceed. PROCEDURE The patient was brought to the operating room and placed supine on the OR gurney. She was intubated and general endotracheal anesthesia was induced. She was turned into the prone position on a Yaya frame. Her back was prepped and draped in usual fashion. The skin was infiltrated with 0.5% Marcaine with epinephrine. A #10 blade was used to make a midline incision. Sharp dissection was carried down to the fascia. The fascia and paraspinal muscles were reflected laterally off the spinous processes, laminae, facets and transverse processes from L3 to L5 bilaterally. Deep retractors were placed. I then removed the coronal facets at L2-3, L3-4 and L4-,5 and cannulated, tapped and probed the pedicles. Dr. Cornell performed medial facetectomies at L3 and L4 bilaterally. Trough laminectomies were used to remove the entire spinous process and lamina of L4. He removed the inferior lamina of L3, and performed lateral recess decompression and bilateral foraminotomies per his separate dictated op note. After adequate decompression, the wound was copiously irrigated with antibiotic-containing solution. The removed autograft was morcellized and packed in the posterolateral recesses bilaterally after all exposed bony surfaces were drilled to gently bleeding bone. The autograft was supplemented with [employer] bone camp assistant. 6.5 x 45 mm screws were placed in the pedicles of L3, L4, and L5 bilaterally. Neuromonitoring including SSEP, EMG and train of 4 with 2-way communication with Neurology was used throughout the case and did not change from baseline. Testing of the screws showed high impedance consistent with no cortical breach. X-ray also showed the screws to be in good position. Connecting rods and inner nuts were placed and final tightened. The wound was then closed in layers. An epifascial drain was placed prior to closure. Nova were used to approximate the skin. A dry dressing was placed. The patient tolerated the procedure well without complication and was discharged in stable condition to the PACU moving all extremities. I was present throughout and performed my entire portion of the procedure. Electronically Authenticated by: Judith Stone MD On 03/01/2017 10:16 AM CDT JUDITH STONE MD /[facility] TD: 03/01/2017 09:49 documented in this encounter Plan of Treatment Not on file documented as of this encounter Procedures Procedure Name Priority Date/Time Associated Diagnosis Comments XR SPINE 1 VW Routine 01/29/2017 8:09 PM CDT XR SPINE 1 VW Routine 01/29/2017 7:26 PM CDT documented in this encounter Results * XR Spine 1 VW (01/29/2017 8:09 PM CDT) Anatomical Region Laterality Modality Spine N/A Radiographic Traci ging 01/29/2017 8:09 PM CDT Narrative 01/29/2017 8:09 PM CDT Intraoperative lateral lumbar spine radiograph 01/29/2017 at 1507 hours HISTORY: Stenosis FINDINGS: There is motion on the single lateral view submitted for review but trans-pedicle screw and germania fixation overlie the region of the L3-L5 vertebral bodies. IMPRESSION: Postoperative changes Electronically signed by: Beverly Partida M.D. Radiologist: BEVERLY PARTIDA M.D. ?? Attending: ??JUDITH STONE Requesting: JUDITH STONE Requesting Fax: ?? Requesting ID: [id number] Attending Fax: ?? Attending ID: ?? [id number] Completed Time: ?? 01/29/2017 3:09 PM Dictated Time: ?N/A Transcribed Time: 01/29/2017 5:34 PM Signed by: ?BEVERLY PARTIDA ??Lior on 01/29/2017 5:34 PM Report To 1 ID: Report To 1 Name: , Report To 1 FAX: Report To 2 ID: Report To 2 Name: , Report To 2 FAX: Report To 3 ID: Report To 3 Name: , Report To 3 FAX: NextGen Order #: Procedure Note Miscellaneous, Notinfile / Provider, MD Gerard - 03/24/2017 Intraoperative lateral lumbar spine radiograph 01/29/2017 at 1507 hours HISTORY: Stenosis FINDINGS: There is motion on the single lateral view submitted for review but trans-pedicle screw and germania fixation overlie the region of the L3-L5 vertebral bodies. IMPRESSION: Postoperative changes Electronically signed by: Beverly Partida M.D. Radiologist: BEVERLY PARTIDA M.D. Attending: JUDITH STONE Requesting: JUDITH STONE Requesting Requesting ID: [id number] Attending Attending ID: [id number] Completed Time: 01/29/2017 3:09 PM Dictated Time: N/A Transcribed Time: 01/29/2017 5:34 PM Signed by: BEVERLY PARTIDA M.D. on 01/29/2017 5:34 PM Report To 1 ID: Report To 1 Name: , Report To 1 FAX: Report To 2 ID: Report To 2 Name: , Report To 2 FAX: Report To 3 ID: Report To 3 Name: , Report To 3 FAX: NextGen Order #: us Judith Stone MD IMG XR PROCEDURES Final Resul t * XR Spine 1 VW (01/29/2017 7:26 PM CDT) Anatomical Region Laterality Modality Spine N/A Radiographic Traci ging 01/29/2017 7:26 PM CDT Narrative 01/29/2017 7:26 PM CDT Lumbar spine one view. HISTORY: Lumbar surgery. FINDINGS: Single portable lateral view lumbar spine shows metallic probe projecting posterior to the L4 region. ??Additional curvilinear metallic opacities posteriorly. IMPRESSION: Operative radiograph lumbar spine. Electronically signed by: Ale Camacho M.D. Radiologist: ALE CAMACHO MD. ?? Attending: ??JUDITH STONE Requesting: JUDITH STONE Requesting Fax: ?? Requesting ID: [id number] Attending Fax: ?? Attending ID: ?? [id number] Completed Time: ?? 01/29/2017 2:26 PM Dictated Time: ?N/A Transcribed Time: 01/29/2017 4:54 PM Signed by: ?ALE CAMACHO MD ?? on 01/29/2017 4:54 PM Report To 1 ID: Report To 1 Name: , Report To 1 FAX: Report To 2 ID: Report To 2 Name: , Report To 2 FAX: Report To 3 ID: Report To 3 Name: , Report To 3 FAX: NextGen Order #: Procedure Note Miscellaneous, Notinfile / Provider, Gerard, - 03/24/2017 Lumbar spine one view. HISTORY: Lumbar surgery. FINDINGS: Single portable lateral view lumbar spine shows metallic probe projecting posterior to the L4 region. Additional curvilinear metallic opacities posteriorly. IMPRESSION: Operative radiograph lumbar spine. Electronically signed by: Ale Camacho M.D. Radiologist: ALE CAMACHO MD Attending: JUDITH STONE Requesting: JUDITH STONE Requesting Requesting ID: [id number] Attending Attending ID: [id number] Completed Time: 01/29/2017 2:26 PM Dictated Time: N/A Transcribed Time: 01/29/2017 4:54 PM Signed by: ALE CAMACHO MD on 01/29/2017 4:54 PM Report To 1 ID: Report To 1 Name: , Report To 1 FAX: Report To 2 ID: Report To 2 Name: , Report To 2 FAX: Report To 3 ID: Report To 3 Name: , Report To 3 FAX: NextGen Order #: us Judith Stone MD IMG XR PROCEDURES Final Resul t documented in this encounter Visit Diagnoses Not on filedocumented in this encounter Care Teams Auto Body Mechanic Apprentice Relationship Specialty Start Date End Date Kris Walsh DO PCP - General 01/29/17 documented as of this encounter
--- OUTSIDE RECORDS SUMMARY | 2024-11-09 06:35 | XMS_ITS | Encounter Summary ---
Author Organization [facility] Healthcare Address [address] [place] [address] Care Team Providers Care Traveling Missionary Name Role Phone Sameer Walsh DO Primary Care Provider +1- [phone] Encounter Details Date Type Department Care Team (Latest Contact Info) Description 08/14/2016 5:43 PM CDT - 08/14/2016 11:59 PM CDT Hospital Encounter [facility] Maximilian Castaneda MD [address] [place] [address] Other intervertebral disc displacement, lumbar region; Spinal stenosis of lumbar region; Spinal enthesopathy of lumbar region (CMS/HCC); Other spondylosis, lumbar region; Abnormal findings on diagnostic imaging of other parts of musculoskeletal system Social History Tobacco Use Types Packs/Day Years Used Date Smoking Tobacco: Never Assessed Comments Unknown Sex and Gender Information Value Date Recorded Sex Assigned at Not on file 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 Gender Identity Not on file Sexual Orientation [...] 0 05/10/2016 documented as of this encounter Plan of Treatment Not on file documented as of this encounter Procedures Procedure Name Priority Date/Time Associated Diagnosis Comments MRI LUMBAR SPINE WO CONTRAST Routine 08/14/2016 6:33 PM CDT documented in this encounter Results * MRI Lumbar Spine WO Contrast (08/14/2016 6:33 PM CDT) Anatomical Region Laterality Modality Spine N/A Magnetic Resonan ce 08/14/2016 6:33 PM CDT Narrative 08/15/2016 10:23 PM CDT MR Lumbar Spine WO ??Acc#: ??[id number] DATE OF EXAM: ??Aug 14 2016 CLINICAL HISTORY: Low back and bilateral leg pain. ??No previous injury or surgery to this area. RESULT: Sagittal T1, T2 and STIR; axial T1 and T2 weighted images of the lumbar spine were obtained. Vertebral body height and alignment are normal. ??There is reactive marrow change adjacent to vertebral endplates at L4-5 and L5-S1. ??Foci of high T1 and T2 signal in L5 and S2 are suggestive of vertebral hemangiomas. L5-S1 disc space is mildly to moderately narrowed. ??Disc signal intensity is decreased at L4-5 and L5-S1. ??Mild diffuse disc bulging combined with mild facet osteoarthritis and ligamentum flavum thickening to cause moderate central canal stenosis at L3-4 and L4-5. ??No other significant disc bulging is seen. ??No disc herniation is identified. ??Facet degenerative changes are also present at L2-3 and L5-S1. ??No intraspinal, perispinal or paravertebral mass is identified. IMPRESSION: 1. MODERATE CENTRAL CANAL STENOSIS AT L3-4 AND L4-5 DUE TO COMBINATION OF DISC BULGING, FACET OSTEOARTHRITIS AND LIGAMENTUM FLAVUM THICKENING. 2. MILD FACET OSTEOARTHRITIS AT L2-3 AND L5-S1 WITHOUT SIGNIFICANT ENCROACHMENT. 3. PROBABLE VERTEBRAL HEMANGIOMAS VS INTRAOSSEOUS LIPOMAS AT L5 AND S2. 4. REACTIVE MARROW CHANGES ADJACENT TO VERTEBRAL ENDPLATES AT L4-5 AND L5-S1. Interpreting Physician: ??DR MEÑO MURRIETA M.D. ??Read on: ??Aug 15 2016 4:03A Transcribed by: ??vanina ??On: Aug 15 2016 ??1:30P Approved Electronically by: ??GLENNY Tinajero, DR WILDER ??on: ??Aug 15 2016 10:23P Attending: ??MAXIMILIAN STONE Requesting: ??DR MAXIMILIAN STONE Requesting Fax: ??[phone] Attending Fax: ??[phone] Attending ID: ??[id number] Requesting ID: ??[id number] Report To 1 ID: ??[id number] Report To 1 Name: ??MAXIMILIAN STONE Report To 1 FAX: ??[phone] NextGen Order #: Procedure Note Provider, MD Gerard - 03/06/2017 MR Lumbar Spine WO Acc#: [id number] DATE OF EXAM: Aug 14 2016 CLINICAL HISTORY: Low back and bilateral leg pain. No previous injury or surgery to thisarea. RESULT: Sagittal T1, T2 and STIR; axial T1 and T2 weighted images of the lumbarspine were obtained. Vertebral body height and alignment are normal.There is reactive marrow change adjacent to vertebral endplates at L4-5and L5-S1. Foci of high T1 and T2 signal in L5 and S2 are suggestive ofvertebral hemangiomas. L5-S1 disc space is mildly to moderately narrowed.Disc signal intensity is decreased at L4-5 and L5- S1. Mild diffuse discbulging combined with mild facet osteoarthritis and ligamentum flavumthickening to cause moderate central canal stenosis at L3-4 and L4-5. Noother significant disc bulging is seen. No disc herniation is identified.Facet degenerative changes are also present at L2-3 and L5-S1. Nointraspinal, perispinal or paravertebral mass is identified. IMPRESSION: 1. MODERATE CENTRAL CANAL STENOSIS AT L3-4 AND L4-5 DUE TO COMBINATION OFDISC BULGING, FACET OSTEOARTHRITIS AND LIGAMENTUM FLAVUM THICKENING. 2. MILD FACET OSTEOARTHRITIS AT L2-3 AND L5-S1 WITHOUT SIGNIFICANTENCROACHMENT. 3. PROBABLE VERTEBRAL HEMANGIOMAS VS INTRAOSSEOUS LIPOMAS AT L5 AND S2. 4. REACTIVE MARROW CHANGES ADJACENT TO VERTEBRAL ENDPLATES AT L4-5 ANDL5-S1. Interpreting Physician: DR MEÑO MURRIETA M.D. Read on: Aug 15 20164:03A Transcribed by: red On: Aug 15 2016 1:30P Approved Electronically by: GLENNY Tinajero, DR WILDER on: Aug 15 201610:23P Attending: MAXIMILIAN STONE Requesting: DR MAXIMILIAN STONE Requesting Attending Attending ID: [id number] Requesting ID: [id number] Report To 1 ID: [id number] Report To 1 Name: MAXIMILIAN STONE Report To 1 FAX: [phone] NextGen Order #: us Historical Provider MD NÚÑEZ MRI PROCEDURES Final Result documented in this encounter Visit Diagnoses Diagnosis Other intervertebral disc displacement, lumbar region Spinal stenosis of lumbar region Spinal enthesopathy of lumbar region (HCC) Other spondylosis, lumbar region Abnormal findings on diagnostic imaging of other parts of musculoskeletal system documented in this encounter Care Teams Traveling Missionary Relationship Specialty Start Date End Date Sameer Walsh DO PCP - General 05/29/16 01/21/17 documented as of this encounter
--- OUTSIDE RECORDS SUMMARY | 2024-11-09 06:35 | XMS_ITS | Encounter Summary ---
Author Organization [facility] Healthcare Address [address] [place] [address] Care Team Providers Care Casting Technician Name Role Phone Sameer Walsh DO Primary Care Provider +1- [phone] Encounter Details Date Type Department Care Team (Late st Contact Info) Description 08/31/2016 2:47 PM CDT - 08/31/2016 11:59 PM CDT Hospital Encounter [facility] Saul Dye MD [address] [place] [address] [address] Spinal stenosis of lumbar region; Intervertebral disc disorder with radiculopathy of lumbar region Social History Tobacco Use Types Packs/Day Years Used Date Smoking Tobacco: Never Assessed Comments Unknown Sex and Gender Information Value Date Recorded Sex Assigned at Not on file 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
--- OUTSIDE RECORDS SUMMARY | 2024-11-09 06:35 | XMS_ITS | Encounter Summary ---
Author Organization [facility] Healthcare Address [address] [place] [address] Care Team Providers Care Field Service Specialist Name Role Phone Sameer Walsh DO Primary Care Provider +1- [phone] Encounter Details Date Type Department Care Team (Latest Contact Info) Description 01/22/2017 2:41 PM CDT - 01/22/2017 11:59 PM CDT Hospital Encounter [facility] [phone] Dru Tobias MD [address] [facility] [address] [place] [address] Discharge Disposition: Discharge to home or self care Social History Tobacco Use Types Packs/Day Years Used Date Smoking Tobacco: Never Assessed Comments Unknown Sex and Gender Information Value Date Recorded Sex Assigned at Not on file 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
--- OUTSIDE RECORDS SUMMARY | 2024-11-09 06:35 | XMS_ITS | Encounter Summary ---
Author Organization [facility] Healthcare Address [address] [place] [address] Care Team Providers Care Twisting Frame Changer Name Role Phone Sameer Walsh DO Primary Care Provider +1- [phone] Sameer Walsh DO Primary Care Provider +1- [phone] Encounter Details Date Type Department Care Team (Late st Contact Info) Description 01/22/2017 Orders Only [facility] [phone] Dru Tobias MD [address] [facility] [address] [place], [place] [id number] Social History Tobacco Use Types Packs/Day Years Used Date Smoking Tobacco: Never Assessed Comments Unknown Sex and Gender Information Value Date Recorded Sex Assigned at Not on file 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 Gender Identity Not on file Sexual Orientation Not on file documented as of this encounter Plan of Treatment Not on file documented as of this encounter Procedures Procedure Name Priority Date/Time Associated Diagnosis Comments DIFFERENTIAL AUTO STAT 01/22/2017 2:5 8 PM CDT documented in this encounter Results * (ABNORMAL) Differential, auto (01/22/2017 2:58 PM CDT) Neutrophil pct 42.5(L) 44.0 - 80.0 % [facility] Imm gran pct 0.2 0.0 - 1.0 % [facility] Lymphocyte pct 42.9 13.0 - 44.0 % [facility] Monocyte pct 11.0 2.0 - 11.0 % [facility] Eosinophil pct 2.9 0.0 - 6.0 % [facility] Basophil pct 0.5 0.0 - 3.0 % [facility] Neutrophil abs 2.48 1.70 - 6.50 K/cumm [facility] Imm gran abs 0.01 0.00 - 0.10 K/cumm [facility] Lymphocyte abs 2.50 0.80 - 3.30 K/cumm [facility] Monocyte abs 0.64 0.20 - 0.80 K/cumm [facility] Eosinophil abs 0.17 0.00 - 0.50 K/cumm [facility] Basophil abs 0.03 0.00 - 0.10 K/cumm [facility] Blood specimen (specimen) 01/22/2017 2:58 PM CDT 01/22/2017 3:27 PM CDT Dru Tobias MD LAB BLOOD ORDERABLES Final Re sult [facility] [address] Department [place] [address] documented in this encounter Visit Diagnoses Not on filedocumented in this encounter Care Teams Twisting Frame Changer Relationship Specialty Start Date End Date Sameer Walsh DO PCP - General 01/29/17 Sameer Walsh DO PCP - General 01/22/17 01/28/17 documented as of this encounter
--- OUTSIDE RECORDS SUMMARY | 2024-11-09 06:35 | XMS_ITS | Encounter Summary ---
Author Organization [facility] Healthcare Address [address] [place] [address] Care Team Providers Care Desk Director Name Role Phone Sameer Walsh DO Primary Care Provider +1- [phone] Sameer Walsh DO Primary Care Provider +1- [phone] Encounter Details Date Type Department Care Team (Late st Contact Info) Description 01/22/2017 Orders Only [facility] Inter[facility] [phone] Dru Tobias MD [address] [facility] [address] [place], [place] [id number] Social History Tobacco Use Types Packs/Day Years Used Date Smoking Tobacco: Never Assessed Comments Unknown Sex and Gender Information Value Date Recorded Sex Assigned at Not on file 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 Gender Identity Not on file Sexual Orientation Not on file documented as of this encounter Plan of Treatment Not on file documented as of this encounter Procedures Procedure Name Priority Date/Time Associated Diagnosis Comments CBC WITH AUTO DIFFERENTIAL STAT 01/22/2017 2:58 PM CDT documented in this encounter Results * CBC with auto differential (01/22/2017 2:58 PM CDT) WBC 5.83 3.80 - 9.90 K/cumm [facility] RBC 4.74 3.90 - 5.20 M/cumm [facility] Hgb 13.5 11.9 - 15.5 g/dL [facility] Hct 40.8 35.6 - 45.5 % [facility] MCV 86.1 81.3 - 96.4 fL [facility] MCH 28.5 27.1 - 33.3 pg [facility] MCHC 33.1 32.3 - 35.7 g/dL [facility] RDW CV 12.8 11.1 - 14.9 % [facility] RDW SD 40.0 35.7 - 48.1 fL [facility] Plt 299 150 - 400 K/cumm [facility] MPV 9.4 9.1 - 12.3 fL [facility] NRBC 0.00 0.00 - 0.20 % [facility] NRBC abs 0.00 0.00 - 0.01 K/cumm [facility] Blood specimen (specimen) 01/22/2017 2:58 PM CDT 01/22/2017 3:27 PM CDT Dru Tobias MD LAB BLOOD ORDERABLES Final Re sult [facility] [address] Department [place] [address] documented in this encounter Visit Diagnoses Not on filedocumented in this encounter Care Teams Desk Director Relationship Specialty Start Date End Date Sameer Walsh DO PCP - General 01/29/17 Sameer Walsh DO PCP - General 01/22/17 01/28/17 documented as of this encounter
--- OUTSIDE RECORDS SUMMARY | 2024-11-09 06:35 | XMS_ITS | Encounter Summary ---
Author Organization [facility] Healthcare Address [address] [place] [address] Care Team Providers Care Cloud Architect Name Role Phone Sameer Walsh DO Primary Care Provider +1- [phone] Encounter Details Date Type Department Care Team (Latest Contact Info) Description 03/13/2017 12:48 PM CDT - 03/13/2017 11:59 PM CDT Hospital Encounter [facility] INTER[facility] [phone] Dru Stone MD [address] [facility] [address] [place] [address] Discharge Disposition: Discharge to home or self care Social History Tobacco Use Types Packs/Day Years Used Date Smoking Tobacco: Never Assessed Comments Unknown Sex and Gender Information Value Date Recorded Sex Assigned at Not on file 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 ??The alignment is within expected limits. ??The patient is undergone decompression at the L4 level.. There is no significant change compared to 01/29/2017. ??Moderate narrowing of the L4-L5 and L5-S1 intervertebral disc spaces is noted. Eburnation and spur formation is noted at these levels. ??There are additional levels of mild degenerative spur formation. There is no evidence of loosening or hardware fracture. IMPRESSION: 1. Hardware fixation and decompression of the lumbar spine which is within expected limits some. ??The alignment is unchanged compared to 01/29/2017. COMMENT: Please see above for additional findings. Electronically signed by: Randolph Doherty M.D. Radiologist: RANDOLPH DOHERTY MD ?? Attending: ??DRU STONE Requesting: DRU STONE Requesting Fax: ?? Requesting ID: [id number] Attending Fax: ?? Attending ID: ?? [id number] Completed Time: ?? 03/13/2017 1:11 PM Dictated Time: ?N/A Transcribed Time: 03/13/2017 2:52 PM Signed by: ?RANDOLPH DOHERTY MD ?? on 03/13/2017 2:52 PM Report To 1 ID: Report To 1 Name: , Report To 1 FAX: Report To 2 ID: Report To 2 Name: , Report To 2 FAX: Report To 3 ID: Report To 3 Name: , Report To 3 FAX: NextGen Order #: Procedure Note Miscellaneous, Not In File / Provider, Gerard, - 03/24/2017 EXAM: Lumbar spine HISTORY: Postop 01/29/2017, post laminectomy syndrome, M 96.1 Views: 2 FINDINGS: The examination demonstrates transpedicular hardware fixation at the L3-L4 and L5 levels. The alignment is within expected limits. The patient is undergone decompression at the L4 level.. There is no significant change compared to 01/29/2017. Moderate narrowing of the L4-L5 and L5-S1 intervertebral disc spaces is noted. Eburnation and spur formation is noted at these levels. There are additional levels of mild degenerative spur formation. There is no evidence of loosening or hardware fracture. IMPRESSION: 1. Hardware fixation and decompression of the lumbar spine which is within expected limits some. The alignment is unchanged compared to 01/29/2017. COMMENT: Please see above for additional findings. Electronically signed by: Randolph Doherty M.D. Radiologist: RANDOLPH DOHERTY MD Attending: DRU STONE Requesting: DRU STONE Requesting Requesting ID: [id number] Attending Attending ID: [id number] Completed Time: 03/13/2017 1:11 PM Dictated Time: N/A Transcribed Time: 03/13/2017 2:52 PM Signed by: RANDOLPH DOHERTY MD on 03/13/2017 2:52 PM Report To 1 ID: Report To 1 Name: , Report To 1 FAX: Report To 2 ID: Report To 2 Name: , Report To 2 FAX: Report To 3 ID: Report To 3 Name: , Report To 3 FAX: NextGen Order #: us Not In File Miscellaneous IMG XR PROCEDURES Jannette l Result documented in this encounter Visit Diagnoses Not on filedocumented in this encounter Care Teams Cloud Architect Relationship Specialty Start Date End Date Sameer Walsh DO PCP - General 01/29/17 documented as of this encounter
--- OUTSIDE RECORDS SUMMARY | 2024-11-09 06:35 | XMS_ITS | Encounter Summary ---
Author Organization [facility] Healthcare Address [address] [place] [address] Care Team Providers Care Track Production Engineer Name Role Phone Sameer Walsh DO Primary Care Provider +1- [phone] Encounter Details Date Type Department Care Team (Late st Contact Info) Description 01/29/2017 Orders Only [facility] Interim [phone] Dru Tobias MD [address] [facility] [address] [place], [place] [id number] Social History Tobacco Use Types Packs/Day Years Used Date Smoking Tobacco: Never Assessed Comments Unknown Sex and Gender Information Value Date Recorded Sex Assigned at Not on file 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 Gender Identity Not on file Sexual Orientation Not on file documented as of this encounter Plan of Treatment Not on file documented as of this encounter Procedures Procedure Name Priority Date/Time Associated Diagnosis Comments COMPREHENSIVE METABOLIC PANEL STAT 01/29/2017 8:11 PM CDT documented in this encounter Results * (ABNORMAL) Comprehensive metabolic panel (01/29/2017 8:11 PM CDT) Sodium 141 135 - 145 mmol/L [facility] Potassium, pl 4.8 3.6 - 5.2 mmol/L [facility] CO2 25 22 - 32 mmol/L [facility] BUN 13.0 8.0 - 25.0 mg/dL [facility] Glucose 149 70 - 199 mg/dL [facility] Comment: Interpretive Data Glucose is assumed to be non-fasting. Current interpretive data was last revised 2017. Creatinine 0.85 0.60 - 1.10 mg/dL [facility] Calcium 8.3(L) 8.5 - 10.3 mg/dL [facility] Chloride 105 97 - 110 mmol/L [facility] Albumin 3.9 3.5 - 5.0 g/dL [facility] AST 24 10 - 45 Units/L [facility] ALT 19 7 - 45 Units/L [facility] Alk phos 77 40 - 130 Units/L [facility] Bilirubin, total 0.30 0.00 - 1.20 mg/dL [facility] Protein, pl 7.4 6.5 - 8.5 g/dL [facility] Anion gap 11 2 - 15 mmol/L [facility] Blood specimen (specimen) 01/29/2017 8:11 PM CDT 01/29/2017 8:45 PM CDT us Dru Tobias MD LAB BLOOD ORDERABLES Final Re sult [facility] [address] Department [place] [address] documented in this encounter Visit Diagnoses Not on filedocumented in this encounter Care Teams Track Production Engineer Relationship Specialty Start Date End Date Sameer Walsh DO PCP - General 01/29/17 documented as of this encounter
--- OUTSIDE RECORDS SUMMARY | 2024-11-09 06:35 | XMS_ITS | Encounter Summary ---
Author Organization [facility] Healthcare Address [address] [place] [address] Care Team Providers Care Global Human Resources Director Name Role Phone Sameer Walsh DO Primary Care Provider +1- [phone] Encounter Details Date Type Department Care Team (Late st Contact Info) Description 09/28/2016 7:52 AM BRAID CUTTER - 09/28/2016 11:59 PM BRAID CUTTER Hospital Encounter [facility] Saul Dye MD [address] [place] [address] [address] Intervertebral disc disorder with radiculopathy of lumbar region Social History Tobacco Use Types Packs/Day Years Used Date Smoking Tobacco: Never Assessed Comments Unknown Sex and Gender Information Value Date Recorded Sex Assigned at Not on file Legal Sex Female 4: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 BRAID 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 Gender Identity Not on file Sexual Orientation [...] SPINE LUMBAR 2 OR 3 VIEWS Routine 09/28/2016 8:20 AM BRAID CUTTER documented in this encounter Results * XR Spine Lumbar 2 or 3 Views (09/28/2016 8:20 AM BRAID CUTTER) Anatomical Region Laterality Modality Spine N/A Radiographic Traci ging 09/28/2016 8:20 AM BRAID CUTTER Narrative 09/28/2016 10:34 AM BRAID CUTTER XR Lumbar Spine 2-3 Views [id number] ??Acc#: ??[id number] DATE OF EXAM: ??Dec ??2015 CLINICAL HISTORY: ?\F\ RESULT: XR Lumbar Spine 2-3 Views: The Radiology Department provided assistance with Fluoroscopy during a patient exam performed by a Pain Management Physician. Digital images were taken and stored in clinical desktop. IMPRESSION: ?The Radiology Department provided assistance with Fluoroscopy during a patient exam performed by a Pain Management Physician. Digital images were taken and stored in clinical desktop. Interpreting Physician: ?[facility] RADIOLOG[facility] M.D. ??Read on: Dec ??2015 10:34A Transcribed by: ?On: Dec ??2015 10:34A Approved Electronically by: ??[facility] RADIOLOGY M.D., ?on: Dec ??2015 10:34A Attending: ??DR SAUL FITZGERALD Requesting: ??DR SAUL FITZGERALD Requesting Fax: ??-- Attending Fax: ??[phone] Attending ID: ??[id number] Requesting ID: ??[id number] Report To 1 ID: ??[id number] Report To 1 Name: ??DR SAUL FITZGERALD Report To 1 FAX: ??[phone] NextGen Order #: Procedure Note Provider, MD Gerard - 03/06/2017 XR Lumbar Spine 2-3 Views [id number] Acc#: [id number] DATE OF EXAM: Sep 28 2016 CLINICAL HISTORY: \F\ RESULT: XR Lumbar Spine 2-3 Views: The Radiology Department provided assistance with Fluoroscopy during apatient exam performed by a Pain Management Physician. Digital images weretaken and stored in clinical desktop. IMPRESSION: The Radiology Department provided assistance withFluoroscopy during a patient exam performed by a Pain ManagementPhysician. Digital images were taken and stored in clinical desktop. Interpreting Physician: [facility] RADIOLOGY Lior Read on: Sep 28 2016 10:34A Transcribed by: On: Sep 28 2016 10:34A Approved Electronically by: INFORMATION SYSTEM [place] Tinajero, on: Sep 28 2016 10:34A Attending: DR SAUL FITZGERALD Requesting: DR SAUL FITZGERALD Requesting Fax: -- Attending Attending ID: [id number] Requesting ID: [id number] Report To 1 ID: [id number] Report To 1 Name: DR SAUL FITZGERALD Report To 1 FAX: [phone] NextGen Order #: us Historical Provider MD NÚÑEZ XR PROCEDURES Final R esult documented in this encounter Visit Diagnoses Diagnosis Intervertebral disc disorder with radiculopathy of lumbar region documented in this encounter Care Teams Global Human Resources Director Relationship Specialty Start Date End Date Sameer Walsh DO PCP - General 05/29/16 01/21/17 documented as of this encounter
--- OUTSIDE RECORDS SUMMARY | 2024-11-09 06:35 | XMS_ITS | Encounter Summary ---
Author Organization [facility] Healthcare Address [address] [place] [address] Care Team Providers Care Transportation Attendant Name Role Phone Sameer Walsh DO Primary Care Provider +1- [phone] Encounter Details Date Type Department Care Team (Late st Contact Info) Description 11/01/2016 2:40 PM EMPLOYMENT SERVICE SPECIALIST - 11/01/2016 11:59 PM EMPLOYMENT SERVICE SPECIALIST Hospital Encounter [facility] Saul Dye MD [address] [place] [address] Low back pain Social History Tobacco Use Types Packs/Day Years Used Date Smoking Tobacco: Never Assessed Comments Unknown Sex and Gender Information Value Date Recorded Sex Assigned at Not on file 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
--- OUTSIDE RECORDS SUMMARY | 2024-11-09 06:35 | XMS_ITS | Encounter Summary ---
Author Organization [facility] Healthcare Address [address] [place] [address] Care Team Providers Care Windscreen Fitter Name Role Phone Sameer Walsh DO Primary Care Provider +1- [phone] Encounter Details Date Type Department Care Team (Late st Contact Info) Description 09/14/2016 8:06 AM DIAL MARKER - 09/14/2016 11:59 PM DIAL MARKER Hospital Encounter [facility] Saul Dye MD [address] [place] [address] [address] Other intervertebral disc degeneration, lumbosacral region Social History Tobacco Use Types Packs/Day Years Used Date Smoking Tobacco: Never Assessed Comments Unknown Sex and Gender Information Value Date Recorded Sex Assigned at Not on file 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 ??Read on: Sep 14 2016 ??8:45A Transcribed by: ?On: Sep 14 2016 ??8:45A Approved Electronically by: ??INFORMATION SYSTEM RADIOLOGY M.D., ?on: Sep 14 2016 ??8:45A Attending: ??DR SAUL FITZGERALD Requesting: ??DR SAUL FITZGERALD Requesting Fax: ??[phone] Attending Fax: ??[phone] Attending ID: ??[id number] Requesting ID: ??[id number] Report To 1 ID: ??[id number] Report To 1 Name: ??DR SAUL FITZGERALD Report To 1 FAX: ??[phone] NextGen Order #: Procedure Note Provider, MD Gerard - 03/06/2017 XR Lumbar Spine 2-3 Views [id number] Acc#: [id number] DATE OF EXAM: Sep 14 2016 CLINICAL HISTORY: \F\ RESULT: XR Lumbar [...] INFORMATION SYSTEM RADIOLOGY Lior Read on: Sep 14 2016 8:45A Transcribed by: On: Sep 14 2016 8:45A Approved Electronically by: [facility] Lior, on: Sep 14 2016 8:45A Attending: DR SAUL FITZGERALD Requesting: DR SAUL FITZGERALD Requesting Attending Attending ID: [id number] Requesting ID: [id number] Report To 1 ID: [id number] Report To 1 Name: DR SAUL FITZGERALD Report To 1 FAX: [phone] NextGen Order #: us Historical Provider MD NÚÑEZ XR PROCEDURES Final R esult documented in this encounter Visit Diagnoses Diagnosis Other intervertebral disc degeneration, lumbosacral region documented in this encounter Care Teams Windscreen Fitter Relationship Specialty Start Date End Date Sameer Walsh DO PCP - General 05/29/16 01/21/17 documented as of this encounter
--- OUTSIDE RECORDS SUMMARY | 2024-11-09 06:35 | XMS_ITS | Encounter Summary ---
Author Organization [facility] Healthcare Address [address] [place] [address] Care Team Providers Care Predatory Game Hunter Name Role Phone Sameer Walsh DO Primary Care Provider +1- [phone] Sameer Walsh DO Primary Care Provider +1- [phone] Encounter Details Date Type Department Care Team (Late st Contact Info) Description 01/22/2017 Orders Only [facility] Lab Interim [phone] Dru Tobias MD [address] [facility] [address] [place], [place] [id number] Social History Tobacco Use Types Packs/Day Years Used Date Smoking Tobacco: Never Assessed Comments Unknown Sex and Gender Information Value Date Recorded Sex Assigned at Not on file 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 Gender Identity Not on file Sexual Orientation Not on file documented as of this encounter Plan of Treatment Not on file documented as of this encounter Procedures Procedure Name Priority Date/Time Associated Diagnosis Comments HEMOGLOBIN A1C STAT 01/22/2017 2:58 PM CDT documented in this encounter Results * Hemoglobin A1c (01/22/2017 2:58 PM CDT) Hgb A1C 5.4 4.0 - 6.0 % [facility] Blood specimen (specimen) 01/22/2017 2:58 PM CDT 01/22/2017 3:27 PM CDT us Dru Tobias MD LAB BLOOD ORDERABLES Final Re sult [facility] [address] [place] [address] documented in this encounter Visit Diagnoses Not on filedocumented in this encounter Care Teams Predatory Game Hunter Relationship Specialty Start Date End Date Sameer Walsh DO PCP - General 01/29/17 Sameer Walsh DO PCP - General 01/22/17 01/28/17 documented as of this encounter
--- OUTSIDE RECORDS SUMMARY | 2024-11-09 06:35 | XMS_ITS | Encounter Summary ---
Author Organization [facility] Healthcare Address [address] [place] [address] Care Team Providers Care Time Clock Inspector Name Role Phone Sameer Walsh DO Primary Care Provider +1- [phone] Sameer Walsh DO Primary Care Provider +1- [phone] Encounter Details Date Type Department Care Team (Late st Contact Info) Description 01/22/2017 Orders Only [facility] Interim [phone] Dru Tobias MD [address] [facility] [address] [place], [place] [id number] Social History Tobacco Use Types Packs/Day Years Used Date Smoking Tobacco: Never Assessed Comments Unknown Sex and Gender Information Value Date Recorded Sex Assigned at Not on file 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 Gender Identity Not on file Sexual Orientation Not on file documented as of this encounter Plan of Treatment Not on file documented as of this encounter Procedures Procedure Name Priority Date/Time Associated Diagnosis Comments VITAMIN D 25 HYDROXY STAT 01/22/2017 2:58 PM CDT documented in this encounter Results * (ABNORMAL) Vitamin D 25 hydroxy (01/22/2017 2:58 PM CDT) Vitamin D 25-OH 21.60(L) >=30.00 ng/mL [facility] Blood specimen (specimen) 01/22/2017 2:58 PM CDT 01/22/2017 3:27 PM CDT us Dru Tobias MD LAB BLOOD ORDERABLES Final Re sult [facility] [address] Department [place] [address] documented in this encounter Visit Diagnoses Not on filedocumented in this encounter Care Teams Time Clock Inspector Relationship Specialty Start Date End Date Sameer Walsh DO PCP - General 01/29/17 Sameer Walsh DO PCP - General 01/22/17 01/28/17 documented as of this encounter
--- OUTSIDE RECORDS SUMMARY | 2024-11-09 06:35 | XMS_ITS | Encounter Summary ---
Author Organization [facility] Healthcare Address [address] [place] [address] Care Team Providers Care Porcelain Mixer Name Role Phone Sameer Walsh DO Primary Care Provider +1- [phone] Encounter Details Date Type Department Care Team (Late st Contact Info) Description 09/07/2016 7:51 AM LOST CHARGE CARD CLERK - 09/07/2016 11:59 PM LOST CHARGE CARD CLERK Hospital Encounter [facility] Saul Dye MD [address] [place] [address] [address] Intervertebral disc disorder with radiculopathy of lumbosacral region Social History Tobacco Use Types Packs/Day Years Used Date Smoking Tobacco: Never Assessed Comments Unknown Sex and Gender Information Value Date Recorded Sex Assigned at Not on file Legal Sex Female 4:08 AM LOST CHARGE CARD CLERK Gender Identity Not on file Sexual Orientation Not on file documented as of this encounter Medications at Time of Discharge lisinopril (PRINIVIL,ZESTRIL ) 20 mg tablet take 1 tablet by oral route 2 times every day 0 0 05/10/2016 meloxicam (MOBIC) 7.5 mg tablet take 1 tablet by oral route 2 times every day 60 3 08/06/2016 methylPREDNISolon e (MEDROL, RADAH,) 4 mg tablet take by Oral route [...] SPINE LUMBAR 2 OR 3 VIEWS Routine 09/07/2016 8:30 AM LOST CHARGE CARD CLERK documented in this encounter Results * XR Spine Lumbar 2 or 3 Views (09/07/2016 8:30 AM LOST CHARGE CARD CLERK) Anatomical Region Laterality Modality Spine N/A Radiographic Traci ging 09/07/2016 8:30 AM LOST CHARGE CARD CLERK Narrative 09/07/2016 8:37 AM LOST CHARGE CARD CLERK XR Lumbar Spine 2-3 Views [id number] ??Acc#: ??[id number] DATE OF EXAM: ??Sep 07 2016 CLINICAL HISTORY: ?\F\ RESULT: XR Lumbar [...] ?INFORMATION SYSTEM RADIOLOGY M.D. ??Read on: Sep 07 2016 ??8:37A Transcribed by: ?On: Sep 07 2016 ??8:37A Approved Electronically by: ??INFORMATION SYSTEM RADIOLOGY M.D., ?on: Sep 07 2016 ??8:37A Attending: ??DR SAUL FITZGERALD Requesting: ??DR SAUL FITZGERALD Requesting Fax: ??[phone] Attending Fax: ??[phone] Attending ID: ??[id number] Requesting ID: ??[id number] Report To 1 ID: ??[id number] Report To 1 Name: ??DR SAUL FITZGERALD Report To 1 FAX: ??[phone] NextGen Order #: Procedure Note Provider, MD Gerard - 03/06/2017 XR Lumbar Spine 2-3 Views [id number] Acc#: [id number] DATE OF EXAM: Sep 07 2016 CLINICAL HISTORY: \F\ RESULT: XR Lumbar [...] INFORMATION SYSTEM RADIOLOGY Lior Read on: Sep 07 2016 8:37A Transcribed by: On: Sep 07 2016 8:37A Approved Electronically by: Desi Hits SYSTEM RADIOLOGY Lior, on: Sep 07 2016 8:37A Attending: DR SAUL FITZGERALD Requesting: DR SAUL FITZGERALD Requesting Attending Attending ID: [id number] Requesting ID: [id number] Report To 1 ID: [id number] Report To 1 Name: DR SAUL FITZGERALD Report To 1 FAX: [phone] NextGen Order #: us Historical Provider IMCelina XR PROCEDURES Final R esult documented in this encounter Visit Diagnoses Diagnosis Intervertebral disc disorder with radiculopathy of lumbosacral region documented in this encounter Care Teams Porcelain Mixer Relationship Specialty Start Date End Date Sameer Walsh DO PCP - General 05/29/16 01/21/17 documented as of this encounter
--- OUTSIDE RECORDS SUMMARY | 2024-11-09 06:35 | XMS_ITS | Encounter Summary ---
Author Organization [facility] Healthcare Address [address] [place] [address] Care Team Providers Care Glue Reel Operator Name Role Phone Sameer Walsh DO Primary Care Provider +1- [phone] Encounter Details Date Type Department Care Team (Latest Contact Info) Description 08/14/2017 11:41 AM CDT - 08/14/2017 11:59 PM CDT Hospital Encounter [facility] INTERIM [phone] Dru Stone MD [address] [facility] [address] [place] [address] Discharge Disposition: Discharge to home or self care Social History Tobacco Use Types Packs/Day Years Used Date Smoking Tobacco: Never Assessed Comments Unknown Sex and Gender Information Value Date Recorded Sex Assigned at Not on file Legal Sex Female 4:08 AM EMBROIDERY SPECIALIST Gender Identity Not on file Sexual [...] SPINE LUMBAR 2 OR 3 VIEWS Routine 08/14/2017 5:19 PM CDT documented in this encounter Results * XR Spine Lumbar 2 or 3 Views (08/14/2017 5:19 PM CDT) Anatomical Region Laterality Modality Spine N/A Radiographic Traci ging 08/14/2017 5:19 PM CDT Narrative 08/14/2017 5:45 PM CDT EXAM: ??Lateral lumbar spine radiograph 2B with flexion and extension HISTORY: ??Status post dorsal fusion COMPARISON: ??Lumbar spine series 03/13/2017 FINDINGS: Dorsal fusion from L3 through L5 is stable. With extension there is 2.8 mm of anterolisthesis of L4 on L5. ??With flexion this measures 4.4 mm. ??All other vertebral body alignment is normal. There is significant disc space narrowing with osteophyte formation at L5-S1. IMPRESSION: Alignment as detailed above Electronically signed by: Clare Partida M.D. Radiologist: CLARE PARTIDA M.D. ?? Attending: ??DRU STONE Requesting: DRU STONE Requesting Fax: ?? Requesting ID: [id number] Attending Fax: ?? Attending ID: ?? [id number] Completed Time: ?? 08/14/2017 12:19 PM Dictated Time: ?N/A Transcribed Time: 08/14/2017 12:45 PM Signed by: ?CLARE PARTIDA on 08/14/2017 12:45 PM Report To 1 ID: Report To 1 Name: , Report To 1 FAX: Report To 2 ID: Report To 2 Name: , Report To 2 FAX: Report To 3 ID: Report To 3 Name: , Report To 3 FAX: NextGen Order #: Procedure Note Miscellaneous, Not In File - 08/14/2017 EXAM: Lateral lumbar spine radiograph 2B with flexion and extension HISTORY: Status post dorsal fusion COMPARISON: Lumbar spine series 03/13/2017 FINDINGS: Dorsal fusion from L3 through L5 is stable. With extension there is 2.8 mm of anterolisthesis of L4 on L5. With flexion this measures 4.4 mm. All other vertebral body alignment is normal. There is significant disc space narrowing with osteophyte formation at L5-S1. IMPRESSION: Alignment as detailed above Electronically signed by: Clare Partida M.D. Radiologist: CLARE PARTIDA M.D. Attending: DRU STONE Requesting: DRU STONE Requesting Requesting ID: [id number] Attending Attending ID: [id number] Completed Time: 08/14/2017 12:19 PM Dictated Time: N/A Transcribed Time: 08/14/2017 12:45 PM Signed by: CLARE PARTIDA M.D. on 08/14/2017 12:45 PM Report To 1 ID: Report To 1 Name: , Report To 1 FAX: Report To 2 ID: Report To 2 Name: , Report To 2 FAX: Report To 3 ID: Report To 3 Name: , Report To 3 FAX: NextGen Order #: Dru Stone MD IMG XR PROCEDURES Edited Resu lt - Final documented in this encounter Visit Diagnoses Not on filedocumented in this encounter Care Teams Glue Reel Operator Relationship Specialty Start Date End Date Sameer Walsh DO PCP - General 01/29/17 documented as of this encounter
--- OUTSIDE RECORDS SUMMARY | 2024-11-09 06:35 | XMS_ITS | Encounter Summary ---
Author Organization [facility] Healthcare Address [address] [place] [address] Care Team Providers Care Lunchroom Worker Name Role Phone Sameer Walsh DO Primary Care Provider +1- [phone] Encounter Details Date Type Department Care Team (Late st Contact Info) Description 01/29/2017 [facility] Only [facility] Inter[facility] [phone] Dru Tobias MD [address] [facility] [address] [place] [address] Social History Tobacco Use Types Packs/Day Years Used Date Smoking Tobacco: Never Assessed Comments Unknown Sex and Gender Information Value Date Recorded Sex Assigned at Not on file Legal Sex Female 4:08 AM DRIER TAKE OFF TENDER Gender Identity Not on file Sexual Orientation Not on file documented as of this encounter Plan of Treatment Not on file documented as of this encounter Procedures Procedure Name Priority Date/Time Associated Diagnosis Comments EGFR STAT 01/29/2017 8:11 PM CDT documented in this encounter Results * eGFR (01/29/2017 8:11 PM CDT) eGFR 77 mL/min/1.7 3 m2 [facility] Comment: Interpretive Data Reference Interval Normal ?>/= 90 mL/min/1.73m2 Mildly decreased* ? 60 - 89 mL/min/1.73m2 Mildly to moderately decreased ?45 - 59 mL/min/1.73m2 Moderately to severely decreased ??30 - 44 mL/min/1.73m2 Severely decreased ?15 - 29 mL/min/1.73m2 Kidney Failure ?< 15 ??mL/min/1.73m2 *Relative to young adult level If -Mauritian multiply value by 1.16. Estimated glomerular filtration rate is determined by the CKD-EPI equation recommended by the National Kidney Foundation (KDIGO 2012 Clinical Practice Guideline for the Evaluation and Management of Chronic Kidney Disease. Kidney Intnl Suppl Oct 2012;3:1). The CKD-EPI equation should not be used for patients with unstable renal function and has not been validated in children and those over 70. Current interpretive data was last reviewed 2017. Blood specimen (specimen) 01/29/2017 8:11 PM CDT 01/29/2017 9:03 PM CDT us Dru Tobias MD LAB BLOOD ORDERABLES Final Re sult [facility] [address] Department [place] [address] documented in this encounter Visit Diagnoses Not on filedocumented in this encounter Care Teams Lunchroom Worker Relationship Specialty Start Date End Date Sameer Walsh DO PCP - General 01/29/17 documented as of this encounter
--- OUTSIDE RECORDS SUMMARY | 2024-11-09 07:46 | XMS_ITS | Clinical Summary ---
Author Organization [facility] Address [address] [place] [address] Care Team Providers Care Dry Mill Worker Name Role Phone Sameer Walsh DO Primary Care Provider +1- [phone] Source Comments [facility],non-owned Affiliates and Associated Physician Practices is amultiple site organization consisting of ambulatory clinics and hospital sitesin [place], [place], [place] and [place]. This disclosure is being madepursuant to the Care Everywhere program and may not contain all information available regarding this patient. Last updated 18.[facility] Medications * Be aware that medications may [...] age to complete this topic Care Teams Dry Mill Worker Relationship Specialty Start Date End Date Sameer Walsh DO PCP - General 09/13/15
--- OUTSIDE RECORDS SUMMARY | 2024-11-09 07:46 | XMS_ITS | Referral Summary ---
Author Organization [facility] Address [address] [place] [address] Care Team Providers Care Dish Machine Operator Name Role Phone Sameer Walsh DO Primary Care Provider +1 [phone] Source Comments [facility],non-owned Affiliates and Associated Physician Practices is amultiple site organization consisting of ambulatory clinics and hospital sitesin [place], [place], [place] and [place]. This disclosure is being madepursuant to the Care Everywhere program and may not contain all information available regarding this patient. Last updated 18.[facility] Medications * Be aware that medications may [...] of Treatment Not on file Care Teams Dish Machine Operator Relationship Specialty Start Date End Date Sameer Walsh DO PCP - General 09/13/15
--- OUTSIDE RECORDS SUMMARY | 2024-11-09 07:46 | XMS_ITS | Patient Health Summary ---
Author Organization [facility] Address [address] [place] [address] Care Team Providers Care Aoc Aadc Operations Staff Officer Name Role Phone NidiadashSameer shen DO Primary Care Provider [phone]- [phone] Note from [facility],non-owned Affiliates and Associated Physician Practices is amultiple site organization consisting of ambulatory clinics and hospital sitesin [place], [place], [place] and [place]. This disclosure is being madepursuant to the Care Everywhere program and may not contain all information available regarding this patient. Last updated 18.[facility] Medications * Be aware that medications may [...] Ewing MD LAB - HEMATOLOGY ORD ERABLES [address] [phone] * (ABNORMAL) MARIA ELENA BLOOD SCREEN (02/28/2016 3:47 PM CDT) MARIA ELENA Positive(A ) None Detected [facility] Venous blood specimen (specimen) 02/28/2016 3:47 PM CDT 02/28/2016 4:04 PM CDT Kiya Ewing MD LAB - CHEMISTRY ORDE RABLES [address] [phone] * HEMOGLOBIN A1C (02/28/2016 3:47 PM CDT) [...] Equal to or greater than 6.5% Reference: [place] Diabetes Association Standards of Care in Diabetes -2014 In patients 70 years and older consider HbA1c target range of 7.0-7.5% Reference: ??Diabetes Mellitus in Older People: Position Statement on behalf of the International Association of Gerontology and Geriatrics (IAGG), the Diabetes Working Republican for Older People (EDWPOP), and the International Task Force of Experts in Diabetes. ??Telly Morfin et al. J [place] Medical Directors Association. 2012 Test results diagnostic [...] Ewing MD LAB - CHEMISTRY KANDY BLACK [facility] Organization Address City/State/ZIP Co de Phone Number [facility] [address] [phone] * (ABNORMAL) COMPREHENSIVE METABOLIC PANEL (02/28/2016 3:47 PM CDT) BUN 13 7 - 26 mg/dL [place] [...] Organization Address City/State/ZIP Co de Phone Number [facility] [place] [address], [facility] [phone] * (ABNORMAL) VIOLETTA STAINING PATTERNS REFLEXED (02/28/2016 3:47 PM CDT) Speckled Pattern 1:160(H) [facility] ([facility]) Note Comment [facility] (BEAKER) Venous blood specimen (specimen) BLOOD SPECIMEN / Unknown 02/28/2016 3:47 PM CDT 02/29/2016 10:18 AM CDT Narrative [facility] (BEAKER) - 03/01/2016 3:29 PM CDT A positive MARIA ELENA result may occur in healthy individuals or be associated with a variety of diseases. ??See interpre- tation below: Pattern ?Antigen Detected ??Suggested Disease Association ? Homogeneous ??DNA(ds,ss,), ?High titers - SLE (Smooth) ? Histone ? Speckled ? Sm, SOCIAL MEDIA CONTENT SPECIALIST, SCL-70, ??SLE,MCTD,Scleroderma,Sjogrens ? SS-A/SS-B ? Nucleolar ?SCL-70, PM-1/SCL ??High titers Scleroderma Poly- ? myositis/Scleroderma Overlap ? Centromere ?? Centromere ?PSS w/Crest syndrome variable ?? Kiya Ewing MD LAB - PATHOLOGY/CYTO LOGY ORDERABLES [facility] ([facility] * MARIA ELENA BLOOD SCREEN W/REFLEX TITER (02/28/2016 3:47 PM CDT) MARIA ELENA IFA See patterns [facility] ([facility] Comment: ? Negative ?? <1:80 ? Borderline ??1:80 ? Positive ?? >1:80 Venous blood specimen (specimen) BLOOD SPECIMEN / Unknown 02/28/2016 3:47 PM CDT 02/29/2016 10:18 AM CDT Narrative [facility] ([facility] - 03/01/2016 3:29 PM CDT Performed at: ??01 - [facility] [address], [place], [place] [id number] Medical Records Coordinator: Monico Wu PhD, Phone: ??[phone] Kiya Ewing MD LAB - CHEMISTRY KANDY BLACK [facility] (MELINDA) Care Teams Aoc Aadc Operations Staff Officer Relationship Specialty Start Date End Date Sameer Walsh DO PCP - General 09/13/15
--- OUTSIDE RECORDS SUMMARY | 2024-11-09 07:46 | XMS_ITS | CONTINUITY OF CARE DOCUMENT ---
Author Name jaquelin hammer Address Unknown Organization [facility] Office Address [address] [place] [address] [address] [place] [address] Phone [phone] Care Team Providers Care Isobutylene Operator Chief Name Role Phone Susi Manzanares MD Unavailable [phone] Susi Manzanares MD Unavailable [phone] INSURANCE PROVIDERS Payer name Policy type / Coverage type [place] red green party ID [facility] [id number] Other [id number]
--- OUTSIDE RECORDS SUMMARY | 2024-11-09 07:47 | XMS_ITS | Encounter Summary ---
Author Organization [facility] Address [address] [place] [address] Care Team Providers Care Plastic Molding Operator Name Role Phone Sameer Walsh DO Primary Care Provider [phone] Encounter Details Date Type Department Care Team (Latest Contact Info) Description 03/15/2016 Hospital Outpatient Visit [facility] [address] [place] [phone] Discharge Disposition: Home or Self Care Social History Tobacco Use Types Packs/Day Years Used Date Smoking Tobacco: Never Assessed Sex and Gender Information Value Date Recorded Sex Assigned at Not on file Gender Identity Not on file Sexual Orientation Not on file documented as of this encounter Miscellaneous Notes * Letter - ProviderGerard MD - 05/02/2018 10:51 AM CDT Letter Signed by Farzad Malloy RN on Author: Farzad Malloy RN Service: (none) Author Type: (none) Date of Service: Filed: Note Type: Letter Status: (Other) April 19, 2016 Radha Grant [address] [facility] [address] Dear Radha Grant: The results of your [...] reported symptoms. This report was approved by Kaalni Muniz M.D. on 03/15/2016 9:11 AM . [...] PM Note Type: Addendum Note Status: Signed Toll Mechanic: Fazrad Malloy RN (Registered Nurse) Encounter addended by: [...] sensation documented in this encounter Care Teams Plastic Molding Operator Relationship Specialty Start Date End Date Sameer Walsh DO PCP - General 09/13/15 documented as of this encounter
--- OUTSIDE RECORDS SUMMARY | 2024-11-09 07:47 | XMS_ITS | Encounter Summary ---
Author Organization [facility] Address [address] [facility] [place] [address] Care Team Providers Care Load Out Supervisor Name Role Phone Sameer Walsh DO Primary Care Provider [phone]- [phone] Encounter Details Date Type Department Care Team [...] COVID-19? Unable to assess 09/07/2020 9:59 AM DYE HOUSE HAND documented as of this encounter Plan of Treatment Not on file documented as of this encounter Visit Diagnoses Not on filedocumented in this encounter Care Teams Load Out Supervisor Relationship Specialty Start Date End Date Sameer Walsh DO PCP - General 09/13/15 documented as of this encounter
--- OUTSIDE RECORDS SUMMARY | 2024-11-09 07:47 | XMS_ITS | Encounter Summary ---
Author Organization [facility] Address [address] [facility] [place] [address] Care Team Providers Care Power Electronics Research Engineer Name Role Phone Sameer Walsh DO Primary Care Provider [phone]- [phone] Encounter Details Date Type Department Care Team (Latest Contact Info) Description 03/15/2016 Hospital Outpatient Visit [facility] [address] [place] [phone] Kiya Ewing MD [address] [place] [phone] Discharge Disposition: Home or Self Care Social [...] on filedocumented in this encounter Care Teams Power Electronics Research Engineer Relationship Specialty Start Date End Date Sameer Walsh DO PCP - General 09/13/15 documented as of this encounter
--- OUTSIDE RECORDS SUMMARY | 2024-11-09 07:47 | XMS_ITS | Encounter Summary ---
Author Organization [facility] Health Address [address] [facility] [place] [address] Care Team Providers Care Home Teaching Grades 7 And 8 Teacher Name Role Phone Sameer Walsh DO Primary Care Provider [phone]- [phone] Encounter Details Date Type Department Care Team [...] COVID-19? No / Unsure 09/19/2020 2:38 PM COILED TUBING SUPERVISOR documented as of this encounter Plan of Treatment Not on file documented as of this encounter Visit Diagnoses Not on filedocumented in this encounter Care Teams Home Teaching Grades 7 And 8 Teacher Relationship Specialty Start Date End Date Sameer Walsh DO PCP - General 09/13/15 documented as of this encounter
--- OUTSIDE RECORDS SUMMARY | 2024-11-09 07:47 | XMS_ITS | Encounter Summary ---
Author Organization [facility] Address [address] [place] [address] Care Team Providers Care Packager Name Role Phone KristenSameer moreland Primary Care Provider Encounter Details Date Type Department Care Team (Latest Contact Info) Description 02/28/2016 Hospital Outpatient Visit Historic [facility] [address] [place] [id number] Kiya Ewing MD [address] [place] [address] Discharge Disposition: Home or Self Care Social [...] Status: (Other) April 30, 2016 Radha Grant [address] [facility] [address] Dear Radha Grant: The results of your recent laboratory test are as follows: CBC W/ DIFFERENTIAL Narrative: The following orders were created for panel order CBC w Differential. Procedure Abnormality Status --------- ------ CBC WITH DIFFERENTIAL[[id number]] Abnormal Final result Please view results for [...] See patterns Narrative: Performed at: [address] [id number] Lockstitch Topstitcher: Monico Wu PhD, Phone: [phone] REFLEX VIOLETTA STAINING PATTERNS Result Value Ref Range SPECKLED PATTERN 1:160 (*) NOTE Comment Narrative: A positive MARIA ELENA result may occur in healthy individuals or be associated with a variety of diseases. See interpre- tation below: Pattern Antigen Detected Suggested Disease Association Homogeneous DNA(ds,ss,), High titers - SLE (Smooth) Histone Speckled Sm, SLITTER AND REWINDER MACHINE OPERATOR, SCL-70, SLE,MCTD,Scleroderma,Sjogrens SS-A/SS-B Nucleolar SCL-70, PM-1/SCL High titers Scleroderma Poly- myositis/Scleroderma Overlap Centromere Centromere PSS w/Crest syndrome variable Essentially normal results.If you have any questions or concerns, please don't hesitate to call. Sincerely, Kiya Ewing MD * Addendum Note - Kiya Ewing MD - 04/30/2016 1:04 PM CDT Addendum Note Signed by Kiya Ewing MD on 04/30/2016 1:04 PM Author: Kiya Ewing MD Service: (none) Author Type: Physician Date of Service: 04/30/2016 1:04 PM Filed: 04/30/2016 1:04 PM Note Type: Addendum Note Status: Signed Ammonium Hydroxide Operator: Kiya Ewing MD (Physician) Encounter addended by: [...] 6.5 3.5 - 10.5 10? 3 /uL [facility] RBC 4.72 3.90 - 5.00 10? 6 /uL [facility] Hemoglobin 13.6 12.0 - 15.5 g/dL [facility] Hematocrit 40.2 35.0 - 45.0 % [facility] MCV 85.2 81.0 - 97.0 fL [facility] MCH 28.8 28.0 - 34.0 pg [facility] MCHC 33.8 32.0 - 36.0 g/dL [facility] Platelet Count 312 150 - 400 10? 3 /uL [facility] RDW-SD 39.4 36.0 - 50.0 fL [facility] RDW-CV 12.7 11.2 - 14.8 % [facility] MPV 9.3 9.3 - 12.8 fL [facility] Neutrophils % 36.9 35.0 - 70.0 % [facility] Lymphocytes % 48.4 19.7 - 55.1 % [facility] Monocytes % 11.6 3.0 - 15.0 % [facility] Eosinophils % 2.8 0.0 - 6.0 % [facility] Basophil % 0.3 0.0 - 1.5 % [facility] Neutrophils Absolute 2.4 1.6 - 7.0 10? 3 /uL [facility] Lymphocyte Absolute 3.1(H) 0.8 - 2.9 10? 3 /uL [facility] Monocytes Absolute 0.75(H) 0.14 - 0.66 10? 3 /uL [facility] Eosinophils Absolute 0.18 0.00 - 0.22 10? 3 /uL [facility] Basophils Absolute 0.02 0.00 - 0.06 10? 3 /uL [facility] Immature Granulocytes % 0.2 0.0 - 1.0 % [facility] Blood specimen (specimen) BLOOD SPECIMEN / Unknown 02/28/2016 3:47 PM CDT 02/28/2016 4:04 PM CDT Kiya Ewing MD LAB - HEMATOLOGY ORD ERABLES Performing Organization Address City/[facility]/ZIP Co de Phone Number [address] [phone] * HEMOGLOBIN A1C (02/28/2016 3:47 PM CDT) Hemoglobin A1c 5.8 4.4 - 6.3 % [facility] Estimated Average Glucose 120 mg/dL [facility] Comment: HbA1c Interpretation: Treatment target values recommended by ADA and other clinical organizations should be used to evaluate metabolic control in patients. Treatment Target Values: Normal : < 5.7% Pre-diabetes: 5.7-6.4% Diabetes: Equal to or greater than 6.5% Reference: [place] Diabetes Association Standards of Care in Diabetes -2014 In patients 70 years and older consider HbA1c target range of 7.0-7.5% Reference: ??Diabetes Mellitus in Older People: Position Statement on behalf of the International Association of Gerontology and Geriatrics (IAGG), the Diabetes Working Green Party for Older People (EDWPOP), and the International Task Force of Experts in Diabetes. ??Telly Morfin, et al. J [place] Medical Directors Association. 2012 Test results diagnostic [...] Ewing MD LAB - CHEMISTRY [place]DE [place] [address] [place] [address], [facility] [phone] * (ABNORMAL) MARIA ELENA BLOOD SCREEN (02/28/2016 3:47 PM CDT) MARIA ELENA Positive(A ) None Detected [facility] Venous blood specimen (specimen) 02/28/2016 3:47 PM CDT 02/28/2016 4:04 PM CDT Kiya Ewing MD LAB - CHEMISTRY KANDY BLACK [facility] Organization Address City/State/ZIP Co de Phone Number [facility] [address] [place] [address], [facility] [phone] * (ABNORMAL) COMPREHENSIVE METABOLIC PANEL (02/28/2016 3:47 PM CDT) Pathologist [facility] BUN 13 7 - 26 mg/dL [facility] Creatinine 0.9 0.6 - 1.2 mg/dL [facility] Sodium 140 136 - 145 mmol/L [facility] Potassium 3.9 3.5 - 4.5 mmol/L [facility] Chloride 104 98 - 107 mmol/L [facility] CO2 30(H) 22 - 29 mmol/L [facility] Glucose 108 70 - 115 mg/dL [facility] Calcium 9.4 8.4 - 10.2 mg/dL [facility] Protein Total 7.5 6.0 - 8.3 g/dL [facility] Albumin 3.7 3.4 - 5.0 g/dL [facility] Bilirubin Total 0.4 0.2 - 1.2 mg/dL [facility] Alkaline Phosphatase 91 40 - 150 Units/L [facility] ALT 14 0 - 55 Units/L [facility] AST 11 5 - 34 Units/L [facility] Anion Gap 10 8 - 18 [facility] BUN/Creatinine Ratio 14 7 - 23 [facility] Osmolality Calculated 276 270 - 300 mOsm/kg [facility] Albumin/Globulin Ratio 1.0(L) 1.1 - 2.3 [facility] eGFR >60 >60 mL/min/1.7 3 m2 [facility] Blood specimen (specimen) BLOOD SPECIMEN / Unknown 02/28/2016 3:47 PM CDT 02/28/2016 4:04 PM CDT Kiya Ewing MD LAB - CHEMISTRY KANDY Rivera Organization Address City/State/ZIP Co de Phone Number [facility] [address] [place] [address], [facility] [phone] * (ABNORMAL) VIOLETTA STAINING PATTERNS REFLEXED (02/28/2016 3:47 PM CDT) Speckled Pattern 1:160(H) [facility] ([facility]) Note Comment [facility] ([facility]) Venous blood specimen (specimen) BLOOD SPECIMEN / Unknown 02/28/2016 3:47 PM CDT 02/29/2016 10:18 AM CDT Narrative [facility] ([facility]AD[facility]) - 03/01/2016 3:29 PM CDT A positive MARIA ELENA result may occur in healthy individuals or be associated with a variety of diseases. ??See interpre- tation below: Pattern ?Antigen Detected ??Suggested Disease Association ? Homogeneous ??DNA(ds,ss,), ?High titers - SLE (Smooth) ? Histone ? Speckled ? Sm, SLITTER AND REWINDER MACHINE OPERATOR, SCL-70, ??SLE,MCTD,Scleroderma,Sjogrens ? SS-A/SS-B ? Nucleolar ?SCL-70, PM-1/SCL ??High titers Scleroderma Poly- ? myositis/Scleroderma Overlap ? Centromere ?? Centromere ?PSS w/Crest syndrome variable ?? Kiya Ewing MD LAB - PATHOLOGY/CYTO LOGY ORDERABLES [facility] [employer] ([employer]) * MARIA ELENA BLOOD SCREEN W/REFLEX TITER (02/28/2016 3:47 PM CDT) MARIA ELENA IFA See patterns [facility] [employer] [facility] ([employer]) Comment: ? Negative ?? <1:80 ? Borderline ??1:80 ? Positive ?? >1:80 Venous blood specimen (specimen) BLOOD SPECIMEN / Unknown 02/28/2016 3:47 PM CDT 02/29/2016 10:18 AM CDT Narrative [facility] ([employer]) - 03/01/2016 3:29 PM CDT Performed at: ??01 - [facility] [address] [place], [place] ??[id number] Lockstitch Topstitcher: Monico Wu PhD, Phone: ??[phone] Kiya Ewing MD LAB - CHEMISTRY KANDY BLACK Performing Organization Address [facility] Co de Phone Number [facility] (MELINDA) * CBC W AUTO DIFFERENTIAL (02/28/2016 3:47 PM CDT) Blood specimen (specimen) BLOOD SPECIMEN / Unknown 02/28/2016 3:[address] [facility] - 02/28/2016 4:13 PM CDT The following orders were created for panel order CBC w Differential. Procedure ? Abnormality ? Status ? --------- ? ------ ? CBC WITH DIFFERENTIAL[[id number]] ? Abnormal ?Final result ? Please view results for these tests on the individual orders. Kiya Ewing MD LAB - HEMATOLOGY LENORE NICHOL Performing Organization Address [facility] Co de Phone Number [place] [phone] [place] [address], [facility] documented in this encounter Visit Diagnoses Not on filedocumented in this encounter Care Teams Packager Relationship Specialty Start Date End Date Sameer Walsh DO PCP - General 09/13/15 documented as of this encounter
--- OUTSIDE RECORDS SUMMARY | 2024-11-09 07:47 | XMS_ITS | Encounter Summary ---
Author Organization [facility] Address [address] [facility] [place] [address] Care Team Providers Care Composite Laminator Name Role Phone Sameer Walsh DO Primary Care Provider Encounter Details Date Type Department Care Team (Latest Contact Info) Description 09/19/2020 11:59 PM AUTOMATIC CHIEF Hospital Encounter [facility] EEG/EMG [address] [place] [id number] Huy Figueroa MD [address] [place] [address] Discharge Disposition: Home or Self [...] COVID-19? No / Unsure 09/19/2020 2:38 PM AUTOMATIC CHIEF documented as of this encounter Medications at Time of Discharge Medication Sig Dispensed Refills Start Date End Date topiramate (TOPAMAX) 50 MG tablet Take 50 mg by mouth BID. 60 tablet 3 05/07/2016 documented as of this encounter Procedure Notes * Huy Figueroa MD - 09/20/2020 7:31 AM CSTProcedure(s): EMG Images from the original note were not included. [address] [address] Full Name: Radha Grant Procedure [...] correlations are suggested. Huy Figueroa MD, PhD MATIC CHIEF documented in this encounter Plan of Treatment Scheduled Orders Name Type Priority Associated Diagnoses Orde r Schedule EMG WITH NERVE CONDUCTION STUDY Neurology Routine ONCE for 1 Occu rrences starting 09/19/2020 until 09/19/2020 documented as of this encounter Visit Diagnoses Not on filedocumented in this encounter Care Teams Composite Laminator Relationship Specialty Start Date End Date Sameer Walsh DO PCP - General 09/13/15 documented as of this encounter
--- OUTSIDE RECORDS SUMMARY | 2024-11-09 07:48 | XMS_ITS | Encounter Summary ---
Author Organization [facility] Healthcare Address [address] [place] [address] Care Team Providers Care Cardiovascular Surgical Tech Name Role Phone Sameer Walsh DO Primary Care Provider +1- [phone] Encounter Details Date Type Department Care Team (Latest Contact Info) Description 02/17/2018 9:47 AM CDT - 02/17/2018 11:59 PM CDT Hospital Encounter [facility] - Imaging [address] [place] [address] Dru Tobias MD [address] [facility] [address] [place] [address] Post laminectomy syndrome Discharge Disposition: Discharge to home or self care Social History Tobacco Use Types Packs/Day Years Used Date Smoking Tobacco: Never Assessed Comments Unknown Sex and Gender Information Value Date Recorded Sex Assigned at Not on file Legal Sex Female 4:08 AM SERVICE CORRESPONDENT Gender Identity Not on file Sexual Orientation [...] region documented in this encounter Care Teams Cardiovascular Surgical Tech Relationship Specialty Start Date End Date Sameer Walsh DO PCP - General 01/29/17 documented as of this encounter
--- OUTSIDE RECORDS SUMMARY | 2024-11-09 07:48 | XMS_ITS | Encounter Summary ---
Author Organization [facility] Healthcare Address [address] [place] [address] Care Team Providers Care Sales And Catering Coordinator Name Role Phone Sameer Walsh DO Primary Care Provider +1- [phone] Encounter Details Date Type Department Care Team (Latest Contact Info) Description 03/13/2017 12:48 PM CDT - 03/13/2017 11:59 PM CDT Hospital Encounter [facility] [phone] Dru Stone MD [address] [facility] [address] [place] [address] Discharge Disposition: Discharge to home or self care Social History Tobacco Use Types Packs/Day Years Used Date Smoking Tobacco: Never Assessed Comments Unknown Sex and Gender Information Value Date Recorded Sex Assigned at Not on file 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 Requesting ID: [id number] Attending Fax: ?? Attending ID: ?? [id number] Completed Time: ?? 03/13/2017 1:11 PM Dictated [...] STONE Requesting: DRU STONE Requesting Requesting ID: [id number] Attending Attending ID: [id number] Completed Time: 03/13/2017 1:11 PM Dictated Time: [...] on filedocumented in this encounter Care Teams Sales And Catering Coordinator Relationship Specialty Start Date End Date Sameer Walsh DO PCP - General 01/29/17 documented as of this encounter
--- OUTSIDE RECORDS SUMMARY | 2024-11-09 07:48 | XMS_ITS | Encounter Summary ---
Author Organization [facility] Healthcare Address [address] [place] [address] Care Team Providers Care Joint Sealer Name Role Phone Sameer Walsh DO Primary Care Provider +1- [phone] Sameer Walsh DO Primary Care Provider +1- [phone] Encounter Details Date Type Department Care Team (Late st Contact Info) Description 01/22/2017 Orders Only [facility] [phone] Dru Tobias MD [address] [facility] [address] [place], [place] [id number] Social History Tobacco Use Types Packs/Day Years Used Date Smoking Tobacco: Never Assessed Comments Unknown Sex and Gender Information Value Date Recorded Sex Assigned at Not on file 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 Gender Identity Not on file Sexual [...] Vitamin D 25-OH 21.60(L) >=30.00 ng/mL [facility] Blood specimen (specimen) 01/22/2017 2:58 PM CDT 01/22/2017 3:27 PM CDT us Dru Tobias MD LAB BLOOD ORDERABLES Final Re sult [facility] [address] [place] [address] documented in this encounter Visit Diagnoses Not on filedocumented in this encounter Care Teams Joint Sealer Relationship Specialty Start Date End Date Sameer Walsh DO PCP - General 01/29/17 Sameer Walsh DO PCP - General 01/22/17 01/28/17 documented as of this encounter
--- OUTSIDE RECORDS SUMMARY | 2024-11-09 07:48 | XMS_ITS | Encounter Summary ---
Author Organization [facility] Healthcare Address [address] [place] [address] Care Team Providers Care Fuel Handler Name Role Phone Kris Walsh DO Primary Care Provider +1- [phone] Encounter Details Date Type Department Care Team (Latest Contact Info) Description 01/29/2017 10:54 AM CDT - 01/31/2017 6:30 PM CDT Hospital Encounter [facility] [address] [place] [address] Judith Stone MD [address] [facility] [address] [place] [address] Discharge Disposition: Discharge to home, home health skilled care Social History Tobacco Use Types Packs/Day Years Used Date Smoking Tobacco: Never Assessed Comments Unknown Sex and Gender Information Value Date Recorded Sex Assigned at Not on file 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 Date: 01/29/2017 Surgeon: KRIS CORNELL MD Admit Date: 01/29/2017 Disch. Date: 01/31/2017 Patient Type: IP OPERATIVE REPORT SURGEON Kris Cornell MD PREOP DIAGNOSIS Spinal stenosis and segmental instability, L3-4, L4-5. POSTOP DIAGNOSIS Spinal stenosis and segmental instability, L3-4, L4-5. PROCEDURE PERFORMED Bilateral lumbar laminectomy, L3 to 5, Kraig; posterior spinal fusion with local autograft and [place] supplementation, L3 to 5, Jatinder; spinal instrumentation with [employer] [place] pedicle screw system, L3 to 5, Jatinder. [...] MD Gerard - 01/29/2017 12:00 AM CDT [facility] Patient: RADHA JEFFERY Account: [id number] Room No: 2412-A : 1960 Proc. Date: [...] Posterior segmental fixation L3 to L5 ([employer] [place]), Dr. Stone. 3. Wide bilateral lumbar laminectomies, [...] bleeding bone. The autograft was supplemented with [place] bone varnish blender. 6.5 x 45 mm screws were placed [...] 03/01/2017 10:16 AM CDT JUDITH STONE MD /[facility] TD: 03/01/2017 09:49 documented in this encounter [...] JUDITH STONE Requesting Fax: ?? Requesting ID: [id number] Attending Fax: ?? Attending ID: ?? [id number] Completed Time: ?? 01/29/2017 3:09 PM Dictated [...] STONE Requesting: JUDITH STONE Requesting Requesting ID: [id number] Attending Attending ID: [id number] Completed Time: 01/29/2017 3:09 PM Dictated Time: [...] JUDITH STONE Requesting Fax: ?? Requesting ID: [id number] Attending Fax: ?? Attending ID: ?? [id number] Completed Time: ?? 01/29/2017 2:26 PM Dictated [...] STONE Requesting: JUDITH STONE Requesting Requesting ID: [id number] Attending Attending ID: [id number] Completed Time: 01/29/2017 2:26 PM Dictated Time: [...] on filedocumented in this encounter Care Teams Fuel Handler Relationship Specialty Start Date End Date Kris Walsh DO PCP - General 01/29/17 documented as of this encounter
--- OUTSIDE RECORDS SUMMARY | 2024-11-09 07:48 | XMS_ITS | Encounter Summary ---
Author Organization [facility] Healthcare Address [address] [place] [address] Care Team Providers Care Internet Network Specialist Name Role Phone Sameer Walsh DO Primary Care Provider +1- [phone] Sameer Walsh DO Primary Care Provider +1- [phone] Encounter Details Date Type Department Care Team (Late st Contact Info) Description 01/22/2017 Orders Only [facility] Lab Interim [phone] Dru Tobias MD [address] [facility] [address] [place], [place] [address] Social History Tobacco Use Types Packs/Day Years Used Date Smoking Tobacco: Never Assessed Comments Unknown Sex and Gender Information Value Date Recorded Sex Assigned at Not on file 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 Gender Identity Not on file Sexual Orientation Not on file documented as of this encounter Plan of Treatment Not on file documented as of this encounter Procedures Procedure Name Priority Date/Time Associated Diagnosis Comments HEMOGLOBIN A1C STAT 01/22/2017 2:58 PM CDT documented in this encounter Results * Hemoglobin A1c (01/22/2017 2:58 PM CDT) Hgb A1C 5.4 4.0 - 6.0 % [facility] Blood specimen (specimen) 01/22/2017 2:58 PM CDT 01/22/2017 3:27 PM CDT us Dru Tobias MD LAB BLOOD ORDERABLES Final Re sult [facility] [address] Department [place] [address] documented in this encounter Visit Diagnoses Not on filedocumented in this encounter Care Teams Internet Network Specialist Relationship Specialty Start Date End Date Sameer Walsh DO PCP - General 01/29/17 Sameer Walsh DO PCP - General 01/22/17 01/28/17 documented as of this encounter
--- OUTSIDE RECORDS SUMMARY | 2024-11-09 07:48 | XMS_ITS | Encounter Summary ---
Author Organization [facility] Healthcare Address [address] [place] [address] Care Team Providers Care Seo Analyst Name Role Phone Sameer Walsh DO Primary Care Provider +1- [phone] Sameer Walsh DO Primary Care Provider +1- [phone] Encounter Details Date Type Department Care Team (Late st Contact Info) Description 01/22/2017 Orders Only [facility] Inter[facility] [phone] Dru Tobias MD [address] [facility] [address] [place], [place] [id number] Social History Tobacco Use Types Packs/Day Years Used Date Smoking Tobacco: Never Assessed Comments Unknown Sex and Gender Information Value Date Recorded Sex Assigned at Not on file 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 Gender Identity Not on file Sexual [...] CDT) WBC 5.83 3.80 - 9.90 K/cumm [facility] RBC 4.74 3.90 - 5.20 M/cumm [facility] Hgb 13.5 11.9 - 15.5 g/dL [facility] Hct 40.8 35.6 - 45.5 % [facility] MCV 86.1 81.3 - 96.4 fL [facility] MCH 28.5 27.1 - 33.3 pg [facility] MCHC 33.1 32.3 - 35.7 g/dL [facility] RDW CV 12.8 11.1 - 14.9 % [facility] RDW SD 40.0 35.7 - 48.1 fL [facility] Plt 299 150 - 400 K/cumm [facility] MPV 9.4 9.1 - 12.3 fL [facility] NRBC 0.00 0.00 - 0.20 % [facility] NRBC abs 0.00 0.00 - 0.01 K/cumm [facility] Blood specimen (specimen) 01/22/2017 2:58 PM CDT 01/22/2017 3:27 PM CDT Dru Tobias MD LAB BLOOD ORDERABLES Final Re sult [facility] [address] Department [place] [address] documented in this encounter Visit Diagnoses Not on filedocumented in this encounter Care Teams Seo Analyst Relationship Specialty Start Date End Date Sameer Walsh DO PCP - General 01/29/17 Sameer Walsh DO PCP - General 01/22/17 01/28/17 documented as of this encounter
--- OUTSIDE RECORDS SUMMARY | 2024-11-09 07:48 | XMS_ITS | Encounter Summary ---
Author Organization [facility] Healthcare Address [address] [place] [address] Care Team Providers Care Window Repairer Name Role Phone Sameer Walsh DO Primary Care Provider +1- [phone] Encounter Details Date Type Department Care Team (Late st Contact Info) Description 09/28/2016 7:52 AM SPINDLE FRAME CARVER - 09/28/2016 11:59 PM SPINDLE FRAME CARVER Hospital Encounter [facility] Saul Dye MD [address] [place] [address] [address] Intervertebral disc disorder with radiculopathy of lumbar region Social History Tobacco Use Types Packs/Day Years Used Date Smoking Tobacco: Never Assessed Comments Unknown Sex and Gender Information Value Date Recorded Sex Assigned at Not on file Legal Sex Female 4:08 AM SPINDLE FRAME CARVER Gender Identity Not on file Sexual Orientation [...] OR 3 VIEWS Routine 09/28/2016 8:20 AM SPINDLE FRAME CARVER documented in this encounter Results * XR Spine Lumbar 2 or 3 Views (09/28/2016 8:20 AM SPINDLE FRAME CARVER) Anatomical Region Laterality Modality Spine N/A Radiographic Traci ging 09/28/2016 8:20 AM SPINDLE FRAME CARVER Narrative 09/28/2016 10:34 AM SPINDLE FRAME CARVER XR Lumbar Spine 2-3 Views [id number] ??Acc#: ??[id number] DATE OF EXAM: ??Dec ??2015 CLINICAL HISTORY: [...] SAUL FITZGERALD Requesting Fax: ??-- Attending Fax: ??[phone] Attending ID: ??[id number] Requesting ID: ??[id number] Report To 1 ID: ??[id number] Report To 1 Name: ??DR SAUL FITZGERALD Report To 1 FAX: ??[phone] NextGen Order #: Procedure Note Provider, MD Gerard - 03/06/2017 XR Lumbar Spine 2-3 Views [id number] Acc#: [id number] DATE OF EXAM: Sep 28 2016 CLINICAL [...] FITZGERALD Requesting Fax: -- Attending Attending ID: [id number] Requesting ID: [id number] Report To 1 ID: [id number] Report To 1 Name: DR SAUL FITZGERALD Report To 1 FAX: [phone] NextGen Order #: us Historical Provider MD NÚÑEZ XR PROCEDURES Final R esult documented in this encounter Visit Diagnoses Diagnosis Intervertebral disc disorder with radiculopathy of lumbar region documented in this encounter Care Teams Window Repairer Relationship Specialty Start Date End Date Sameer Walsh DO PCP - General 05/29/16 01/21/17 documented as of this encounter
--- OUTSIDE RECORDS SUMMARY | 2024-11-09 07:48 | XMS_ITS | Encounter Summary ---
Author Organization [facility] Healthcare Address [address] [place] [address] Care Team Providers Care Mortising Machine Operator Name Role Phone Sameer Walsh DO Primary Care Provider +1- [phone] Encounter Details Date Type Department Care Team (Latest Contact Info) Description 01/22/2017 2:41 PM CDT - 01/22/2017 11:59 PM CDT Hospital Encounter [facility] OP INTERIM [phone] Dru Tobias MD [address] [facility] [address] [place] [address] Discharge Disposition: Discharge to home or self care Social History Tobacco Use Types Packs/Day Years Used Date Smoking Tobacco: Never Assessed Comments Unknown Sex and Gender Information Value Date Recorded Sex Assigned at Not on file 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
--- OUTSIDE RECORDS SUMMARY | 2024-11-09 07:48 | XMS_ITS | Encounter Summary ---
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 Gender Identity Not on file Sexual Orientation Not on file documented as of this encounter Plan of Treatment Not on file documented as of this encounter Procedures Procedure Name Priority Date/Time Associated Diagnosis Comments COMPREHENSIVE METABOLIC PANEL STAT 01/29/2017 8:11 PM CDT documented in this encounter Results * (ABNORMAL) Comprehensive metabolic panel (01/29/2017 8:11 PM CDT) Sodium 141 135 - 145 mmol/L [facility] Potassium, pl 4.8 3.6 - 5.2 mmol/L [facility] CO2 25 22 - 32 mmol/L [facility] BUN 13.0 8.0 - 25.0 mg/dL [facility] Glucose 149 70 - 199 mg/dL [facility] Comment: Interpretive Data Glucose is assumed to be non-fasting. Current interpretive data was last revised 2017. Creatinine 0.85 0.60 - 1.10 mg/dL [facility] Calcium 8.3(L) 8.5 - 10.3 mg/dL [facility] Chloride 105 97 - 110 mmol/L [facility] Albumin 3.9 3.5 - 5.0 g/dL [facility] AST 24 10 - 45 Units/L [facility] ALT 19 7 - 45 Units/L [facility] Alk phos 77 40 - 130 Units/L [facility] Bilirubin, total 0.30 0.00 - 1.20 mg/dL [facility] Protein, pl 7.4 6.5 - 8.5 g/dL [facility] Anion gap 11 2 - 15 mmol/L [facility] Blood specimen (specimen) 01/29/2017 8:11 PM CDT 01/29/2017 8:45 PM CDT us Dru Tobias MD LAB BLOOD ORDERABLES Final Re sult [facility] [address] Department [place] [address] documented in this encounter Visit Diagnoses Not on filedocumented in this encounter Care Teams Swimming Pool Maintenance Relationship Specialty Start Date End Date Sameer Walsh DO PCP - General 01/29/17 documented as of this encounter
--- OUTSIDE RECORDS SUMMARY | 2024-11-09 07:48 | XMS_ITS | Encounter Summary ---
Author Organization [facility] Healthcare Address [address] [place] [address] Care Team Providers Care Airplane Patroller Name Role Phone Sameer Walsh DO Primary Care Provider +1- [phone] Encounter Details Date Type Department Care Team (Late st Contact Info) Description 01/29/2017 Orders Only [facility] Interim [phone] Dru Tobias MD [address] [facility] [address] [place] [address] Social History Tobacco Use Types Packs/Day Years Used Date Smoking Tobacco: Never Assessed Comments Unknown Sex and Gender Information Value Date Recorded Sex Assigned at Not on file 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 60 - 89 mL/min/1.73m2 Mildly to moderately decreased ?45 - 59 mL/min/1.73m2 Moderately to severely decreased ??30 - 44 mL/min/1.73m2 Severely decreased ?15 - 29 mL/min/1.73m2 Kidney Failure ?< 15 ??mL/min/1.73m2 *Relative to young adult level If -Czech multiply value by 1.16. Estimated glomerular filtration [...] LAB BLOOD ORDERABLES Final Re sult [facility] [address] Department [place] [address] documented in this encounter Visit Diagnoses Not on filedocumented in this encounter Care Teams Airplane Patroller Relationship Specialty Start Date End Date Sameer Walsh DO PCP - General 01/29/17 documented as of this encounter
--- OUTSIDE RECORDS SUMMARY | 2024-11-09 07:48 | XMS_ITS | Encounter Summary ---
Author Organization [facility] Healthcare Address [address] [place] [address] Care Team Providers Care Asphalt Paver Name Role Phone Sameer Walsh DO Primary Care Provider +1- [phone] Encounter Details Date Type Department Care Team (Latest Contact Info) Description 08/14/2017 11:41 AM CDT - 08/14/2017 11:59 PM CDT Hospital Encounter [facility] OP INTERIM [phone] Dru Stone MD [address] [facility] [address] [place] [address] Discharge Disposition: Discharge to home or self care Social History Tobacco Use Types Packs/Day Years Used Date Smoking Tobacco: Never Assessed Comments Unknown Sex and Gender Information Value Date Recorded Sex Assigned at Not on file 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 Requesting ID: [id number] Attending Fax: ?? Attending ID: ?? [id number] Completed Time: ?? 08/14/2017 12:19 PM Dictated [...] STONE Requesting: DRU STONE Requesting Requesting ID: [id number] Attending Attending ID: [id number] Completed Time: 08/14/2017 12:19 PM Dictated Time: [...] on filedocumented in this encounter Care Teams Asphalt Paver Relationship Specialty Start Date End Date Sameer Walsh DO PCP - General 01/29/17 documented as of this encounter
--- OUTSIDE RECORDS SUMMARY | 2024-11-09 07:48 | XMS_ITS | Referral Summary ---
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 Gender Identity Not on file Sexual Orientation Not on file Last Filed Vital Signs Vital Sign Reading Time Taken Comments Blood Pressure 152/87 11/05/2018 8:10 AM BULK FOLDER Pulse 71 11/05/2018 8:10 AM BULK FOLDER Temperature - - Respiratory Rate - - Oxygen Saturation - - Inhaled Oxygen Concentration - - Weight 98.4 kg (217 lb) 11/05/2018 8:10 AM BULK FOLDER Height 162.6 cm (5' 4 ) 11/05/2018 8:10 AM BULK FOLDER Body Mass Index 37.25 11/05/2018 8:10 AM BULK FOLDER Plan of Treatment Not on file Insurance [facility] H[facility]PPO Address: [address] [address] [place] [address] Care Teams Social Media Marketing Manager Relationship Specialty Start Date End Date Sameer Walsh DO PCP - General 01/29/17
--- OUTSIDE RECORDS SUMMARY | 2024-11-09 07:48 | XMS_ITS | Encounter Summary ---
Author Organization [facility] Healthcare Address [address] [place] [address] Care Team Providers Care Train Clerk Name Role Phone Sameer Walsh DO Primary Care Provider +1- [phone] Sameer Walsh DO Primary Care Provider +1- [phone] Encounter Details Date Type Department Care Team (Late st Contact Info) Description 01/22/2017 Orders Only [facility] Interim [phone] Dru Tobias MD [address] [facility] [address] [id number] Social History Tobacco Use Types Packs/Day Years Used Date Smoking Tobacco: Never Assessed Comments Unknown Sex and Gender Information Value Date Recorded Sex Assigned at Not on file 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 Gender Identity Not on file Sexual Orientation Not on file documented as of this encounter Plan of Treatment Not on file documented as of this encounter Procedures Procedure Name Priority Date/Time Associated Diagnosis Comments DIFFERENTIAL AUTO STAT 01/22/2017 2:5 8 PM CDT documented in this encounter Results * (ABNORMAL) Differential, auto (01/22/2017 2:58 PM CDT) Neutrophil pct 42.5(L) 44.0 - 80.0 % [facility] Imm gran pct 0.2 0.0 - 1.0 % [facility] Lymphocyte pct 42.9 13.0 - 44.0 % [facility] Monocyte pct 11.0 2.0 - 11.0 % [facility] Eosinophil pct 2.9 0.0 - 6.0 % [facility] Basophil pct 0.5 0.0 - 3.0 % [facility] Neutrophil abs 2.48 1.70 - 6.50 K/cumm [facility] Imm gran abs 0.01 0.00 - 0.10 K/cumm [facility] Lymphocyte abs 2.50 0.80 - 3.30 K/cumm [facility] Monocyte abs 0.64 0.20 - 0.80 K/cumm [facility] Eosinophil abs 0.17 0.00 - 0.50 K/cumm [facility] Basophil abs 0.03 0.00 - 0.10 K/cumm [facility] Blood specimen (specimen) 01/22/2017 2:58 PM CDT 01/22/2017 3:27 PM CDT Dru Tobias MD LAB BLOOD ORDERABLES Final Re sult [facility] [address] Department [place] [address] documented in this encounter Visit Diagnoses Not on filedocumented in this encounter Care Teams Train Clerk Relationship Specialty Start Date End Date Sameer Walsh DO PCP - General 01/29/17 Sameer Walsh DO PCP - General 01/22/17 01/28/17 documented as of this encounter
--- OUTSIDE RECORDS SUMMARY | 2024-11-09 07:48 | XMS_ITS | Clinical Summary ---
Author Organization [facility] Address [address] [place] [address] Care Team Providers Care Service Electrician Name Role Phone Sameer Walsh DO Primary Care Provider +1- [phone] Allergies No known active allergies Medications sertraline [...] on file Legal Sex Female 4:08 AM NO EXPERIENCE Gender Identity Not on file Sexual Orientation Not on file Obstetrics History Last Filed Vital Signs Vital Sign Reading Time Taken Comments Blood Pressure 152/87 11/05/2018 8:10 AM NO EXPERIENCE Pulse 71 11/05/2018 8:10 AM NO EXPERIENCE Temperature - - Respiratory Rate - - Oxygen Saturation - - Inhaled Oxygen Concentration - - Weight 98.4 kg (217 lb) 11/05/2018 8:10 AM NO EXPERIENCE Height 162.6 cm (5' 4 ) 11/05/2018 8:10 AM NO EXPERIENCE Body Mass Index 37.25 11/05/2018 8:10 AM NO EXPERIENCE Plan of Treatment Not on file Insurance [facility] [employer] Care Teams Service Electrician Relationship Specialty Start Date End Date Sameer Walsh DO PCP - General 01/29/17
--- OUTSIDE RECORDS SUMMARY | 2024-11-09 07:48 | XMS_ITS | Encounter Summary ---
Author Organization [facility] Address [address] [facility] [address] [place] [address] Care Team Providers Care Political Science Instructor Name Role Phone KristenSameer morelandDeborah LOPEZ Primary Care Provider +1- [phone] Reason for Visit * Reason Comments Pain Encounter Details Date Type Department Care Team (Latest Contact Info) Description 11/05/2018 8:00 AM 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 TEAM LEAD Office Visit [facility] Orthopedics and Sports Medicine [address] [place] [id number] Pam Tobias MD [address] [place] [address] Lateral epicondylitis of right elbow (Primary Dx) Social History Tobacco Use Types Packs/Day Years Used Date Smoking Tobacco: Never Smokeless Tobacco: Never Alcohol Use Standard Drinks/Week Comments No 0 (1 standard drink = 0.6 oz pur e alcohol) Comments Unknown Sex and Gender Information Value Date Recorded Sex Assigned at Not on file 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 Sex Female 4: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 TEAM LEAD Gender Identity Not on file Sexual Orientation Not on file documented as of this encounter Last Filed Vital Signs Vital Sign Reading Time Taken Comments Blood Pressure 152/87 11/05/2018 8:10 AM 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 TEAM LEAD Pulse 71 11/05/2018 8:10 AM 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 TEAM LEAD Temperature - - Respiratory Rate - - Oxygen Saturation - - Inhaled Oxygen Concentration - - Weight 98.4 kg (217 lb) 11/05/2018 8:10 AM 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 TEAM LEAD Height 162.6 cm (5' 4 ) 11/05/2018 8:10 AM 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 TEAM LEAD Body Mass Index 37.25 11/05/2018 8:10 AM 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 TEAM LEAD documented in this encounter Progress Notes * [...] negative Impingement signs:negative Glenna's: negative Neer's: negative Bedford's: negative Speed's: negative Spurling's: negative Left shoulder [...] negative Impingement signs:negative Glenna's: glenna's Neer's: negative Bedford's: negative Speed's: negative Spurling's: negative Right elbow [...] OF X-RAYS/STUDIES/LABS MRI of the right elbow [facility] imaging October 30, 2018: Images not [...] Mrs. Grant, referred to [facility] in [place] for further evaluation and treatment. Continue [id number] medication as needed for pain. Wear elbow strap withactivities. Ice for 20 min as needed for pain and swelling. Return to clinic in 4 weeks for repeat e valuation, she should return sooner if she is developing worsening of her symptoms. She is in full understanding and in agreement with the plan, and all of her questions were answered. CHRIS Post MD HANDISING TEAM LEAD documented in this encounter Miscellaneous Notes * Addendum Note - Austin Ayon ATC - 11/05/2018 8:00 AM CSTAddended by: AUSTIN AYON on: 11/05/2018 11:32 AM Modules accepted: Orders HANDISING TEAM LEAD documented in this encounter Plan of Treatment [...] 11/04/2018 added in this encounter Care Teams Political Science Instructor Relationship Specialty Start Date End Date Sameer Walsh DO PCP - General 01/29/17 documented as of this encounter
--- OUTSIDE RECORDS SUMMARY | 2024-11-09 07:48 | XMS_ITS | Continuity of Care Document ---
Author Organization [facility] Address [address] [place] [address] Phone Care Team Providers Care Cable Testers Helper Name Role Phone Parker OD, Alvin Unavailable Unavailable Advance Directives Directive Yes / No Effective Date File Name No Information Encounters Encounter Description Practice Location Reason(s) For Visit Diagnoses Date Provider Providers Copied on Encounter Formerly [facility], [address], [place], [place], [id number], [place] tel:[phone] [facility] No Information Telly-0 [phone] Parker OD Alvin. [address] , [address], [place], [address], [place]. tel:[phone] Family History Family Member Type Diagnosis Age [...]
--- OUTSIDE RECORDS SUMMARY | 2024-11-09 07:48 | XMS_ITS | Encounter Summary ---
Author Organization [facility] Healthcare Address [address] [place] [address] Care Team Providers Care Rock Duster Name Role Phone Sameer Walsh DO Primary Care Provider +1- [phone] Encounter Details Date Type Department Care Team (Late st Contact Info) Description 11/01/2016 2:40 PM NEWSPERSON - 11/01/2016 11:59 PM NEWSPERSON Hospital Encounter [facility] Saul Dey MD [address] [place] [address] Low back pain Social History Tobacco Use Types Packs/Day Years Used Date Smoking Tobacco: Never Assessed Comments Unknown Sex and Gender Information Value Date Recorded Sex Assigned at Not on file Legal Sex Female 4:08 AM NEWSPERSON Gender Identity Not on file Sexual Orientation [...] Lumbago documented in this encounter Care Teams Rock Duster Relationship Specialty Start Date End Date Sameer Walsh DO PCP - General 05/29/16 01/21/17 documented as of this encounter
--- OUTSIDE RECORDS SUMMARY | 2024-11-09 07:49 | XMS_ITS | Encounter Summary ---
Author Organization [facility] Healthcare Address [address] [place] [address] Care Team Providers Care Director Utilization Management Name Role Phone Sameer Walsh DO Primary Care Provider +1- [phone] Encounter Details Date Type Department Care Team (Late st Contact Info) Description 09/07/2016 7:51 AM CARBONATOR - 09/07/2016 11:59 PM CARBONATOR Hospital Encounter [facility] Saul Dye MD [address] [place] [address] [address] Intervertebral disc disorder with radiculopathy of lumbosacral region Social History Tobacco Use Types Packs/Day Years Used Date Smoking Tobacco: Never Assessed Comments Unknown Sex and Gender Information Value Date Recorded Sex Assigned at Not on file 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 Sex Female 4: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 CARBONATOR Gender Identity Not on file Sexual Orientation [...] OR 3 VIEWS Routine 09/07/2016 8:30 AM CARBONATOR documented in this encounter Results * XR Spine Lumbar 2 or 3 Views (09/07/2016 8:30 AM CARBONATOR) Anatomical Region Laterality Modality Spine N/A Radiographic Traci ging 09/07/2016 8:30 AM CARBONATOR Narrative 09/07/2016 8:37 AM CARBONATOR XR Lumbar Spine 2-3 Views [id number] ??Acc#: ??[id number] DATE OF EXAM: ??Sep 07 2016 CLINICAL [...] FITZGERALD Requesting: ??DR SAUL FITZGERALD Requesting Fax: ??[phone] Attending Fax: ??[phone] Attending ID: ??[id number] Requesting ID: ??[id number] Report To 1 ID: ??[id number] Report To 1 Name: ??DR SAUL FITZGERALD Report To 1 FAX: ??[phone] NextGen Order #: Procedure Note Provider, MD Gerard - 03/06/2017 XR Lumbar Spine 2-3 Views [id number] Acc#: [id number] DATE OF EXAM: Sep 07 2016 CLINICAL [...] Sep 07 2016 8:37A Approved Electronically by: [facility]ior, on: Sep 07 2016 8:37A Attending: DR SAUL FITZGERALD Requesting: DR SAUL FITZGERALD Requesting Attending Attending ID: [id number] Requesting ID: [id number] Report To 1 ID: [id number] Report To 1 Name: DR SAUL FITZGERALD Report To 1 FAX: [phone] NextGen Order #: us Historical Provider IMCelina XR PROCEDURES Final R esult documented in this encounter Visit Diagnoses Diagnosis Intervertebral disc disorder with radiculopathy of lumbosacral region documented in this encounter Care Teams Director Utilization Management Relationship Specialty Start Date End Date Sameer Walsh DO PCP - General 05/29/16 01/21/17 documented as of this encounter
--- OUTSIDE RECORDS SUMMARY | 2024-11-09 07:49 | XMS_ITS | Encounter Summary ---
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 Gender Identity Not on file Sexual Orientation [...] PM CDT MR Lumbar Spine WO ??Acc#: ??[id number] DATE OF EXAM: ??Aug 14 2016 CLINICAL [...] STONE Requesting: ??DR MAXIMILIAN STONE Requesting Fax: ??[phone] Attending Fax: ??[phone] Attending ID: ??[id number] Requesting ID: ??[id number] Report To 1 ID: ??[id number] Report To 1 Name: ??MAXIMILIAN STONE Report To 1 FAX: ??[phone] NextGen Order #: Procedure Note Provider, MD Gerard - 03/06/2017 MR Lumbar Spine WO Acc#: [id number] DATE OF EXAM: Aug 14 2016 CLINICAL [...] DR MAXIMILIAN STONE Requesting Attending Attending ID: [id number] Requesting ID: [id number] Report To 1 ID: [id number] Report To 1 Name: MAXIMILIAN STONE Report To 1 FAX: [phone] NextGen Order #: us Historical Provider MD NÚÑEZ MRI PROCEDURES Final Result documented in this encounter Visit Diagnoses Diagnosis Other intervertebral disc displacement, lumbar region Spinal stenosis of lumbar region Spinal enthesopathy of lumbar region (HCC) Other spondylosis, lumbar region Abnormal findings on diagnostic imaging of other parts of musculoskeletal system documented in this encounter Care Teams Director Of Creative Services Relationship Specialty Start Date End Date Sameer Walsh DO PCP - General 05/29/16 01/21/17 documented as of this encounter
--- OUTSIDE RECORDS SUMMARY | 2024-11-09 07:49 | XMS_ITS | Encounter Summary ---
Author Organization [facility] Healthcare Address [address] [place] [address] Care Team Providers Care Food Science Technician Name Role Phone Sameer Walsh DO Primary Care Provider +1- [phone] Encounter Details Date Type Department Care Team (Late st Contact Info) Description 08/31/2016 2:47 PM CDT - 08/31/2016 11:59 PM CDT Hospital Encounter [facility] Saul Dye MD [address] [place] [address] [address] Spinal stenosis of lumbar region; Intervertebral disc disorder with radiculopathy of lumbar region Social History Tobacco Use Types Packs/Day Years Used Date Smoking Tobacco: Never Assessed Comments Unknown Sex and Gender Information Value Date Recorded Sex Assigned at Not on file 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
--- OUTSIDE RECORDS SUMMARY | 2024-11-09 07:49 | XMS_ITS | Encounter Summary ---
Author Organization [facility] Healthcare Address [address] [place] [address] Care Team Providers Care Zinc Miner Blasting Name Role Phone Sameer Walsh DO Primary Care Provider [phone]- [phone] Encounter Details Date Type Department Care Team (Late st Contact Info) Description 09/14/2016 8:06 AM CERTIFIED WELLNESS PROGRAM COORDINATOR - 09/14/2016 11:59 PM CERTIFIED WELLNESS PROGRAM COORDINATOR Hospital Encounter [facility] Saul Dye MD [address] [place] [address] [address] Other intervertebral disc degeneration, lumbosacral region Social History Tobacco Use Types Packs/Day Years Used Date Smoking Tobacco: Never Assessed Comments Unknown Sex and Gender Information Value Date Recorded Sex Assigned at Not on file Legal Sex Female 4:08 AM CERTIFIED WELLNESS PROGRAM COORDINATOR Gender Identity Not on file Sexual Orientation [...] OR 3 VIEWS Routine 09/14/2016 8:25 AM CERTIFIED WELLNESS PROGRAM COORDINATOR documented in this encounter Results * XR Spine Lumbar 2 or 3 Views (09/14/2016 8:25 AM CERTIFIED WELLNESS PROGRAM COORDINATOR) Anatomical Region Laterality Modality Spine N/A Radiographic Traci ging 09/14/2016 8:25 AM CERTIFIED WELLNESS PROGRAM COORDINATOR Narrative 09/14/2016 8:45 AM CERTIFIED WELLNESS PROGRAM COORDINATOR XR Lumbar Spine 2-3 Views [id number] ??Acc#: ??[id number] DATE OF EXAM: ??Sep 14 2016 CLINICAL [...] FITZGERALD Requesting: ??DR SAUL FITZGERALD Requesting Fax: ??[phone] Attending Fax: ??[phone] Attending ID: ??[id number] Requesting ID: ??[id number] Report To 1 ID: ??[id number] Report To 1 Name: ??DR SAUL FITZGERALD Report To 1 FAX: ??[phone] NextGen Order #: Procedure Note Provider, MD Gerard - 03/06/2017 XR Lumbar Spine 2-3 Views [id number] Acc#: [id number] DATE OF EXAM: Sep 14 2016 CLINICAL [...] Sep 14 2016 8:45A Approved Electronically by: [facility], on: Sep 14 2016 8:45A Attending: DR SAUL FITZGERALD Requesting: DR SAUL FITZGERALD Requesting Attending Attending ID: [id number] Requesting ID: [id number] Report To 1 ID: [id number] Report To 1 Name: DR SAUL FITZGERALD Report To 1 FAX: [phone] NextGen Order #: us Historical Provider MD NÚÑEZ XR PROCEDURES Final R esult documented in this encounter Visit Diagnoses Diagnosis Other intervertebral disc degeneration, lumbosacral region documented in this encounter Care Teams Zinc Miner Blasting Relationship Specialty Start Date End Date Sameer Walsh DO PCP - General 05/29/16 01/21/17 documented as of this encounter
--- OUTSIDE RECORDS SUMMARY | 2024-11-09 07:50 | XMS_ITS | Continuity of Care Document ---
Author Organization [facility] [place] Address [address] [place] [address] Assessment Encounter Date Assessment Date Assessment LastModified by Organization Details LastModified Time 10/15/2024 10/15/2024 Annual gynecological exam performed. Patient will come back in a year unless there are new symptoms. [email or web address] Not available 10/15/2024 14:25:04 Plan of Treatment Reminders Order Date Submit Date Provider Last Modified By Organization Details Last Modified Time Details Appointments None recorded. Lab pap, IG + HR HPV - HPV regardless but if HPV is positive need subtyping 16,18/[address] [facility] (Lab), [address], [place], [address], 07:46:25 Referral None recorded. Procedures None recorded. Surgeries None recorded. Imaging None recorded. Medication Orders None recorded. Patient TargetsNo targets recorded. Patient InstructionsNo instructions recorded. Reason for Referral None Reported. Procedures Surgical History Date Name Laterality Status Provider Name and Address Organization Details Recorded Time 01/27/20 07 procedure on nerve completed [facility] 10/15/2024 14:36:53 07/28/19 99 Cholecystectomy completed [facility] 10/15/2024 14:36:32 04/02/19 83 Caesarean Section completed [facility] 10/15/2024 14:32:28 Imaging Results None recorded. [...] Updated DateTime 10/15/2024 162.56 cm 34.6 kg/m2 46041.5 g 123 mm[Hg] 78 mm[Hg] [facility] 14:29:00 Social History Question Answer Notes LastModified by Organizat ion Details LastModified Time Do You Have An Advance Directive? No Information not available 10/15/2024 What Is Your Level Of Alcohol Consumption? None [email or web address] Information not available 10/15/2024 Are You Blind Or Do You Have Difficulty Seeing? No [email or web address] Information not available 10/15/2024 What Is Your Level Of Caffeine Consumption? Moderate [email or web address] Information not available 10/15/2024 How Much Tobacco Do You Chew? None [email or web address] Information not available 10/15/2024 In The 14 Days Before Symptom Onset, Have You Had Close Contact With A Laboratory-confir med COVID-19 While That Case Was Ill? No [email or web address] Information not available 10/15/2024 In The 14 Days Before Symptom Onset, Have You Had Close Contact With A Person Who Is Under Investigation For COVID-19 While That Person Was Ill? No [email or web address] Information not available 10/15/2024 Have You Been To An Area Known To Be High Risk For COVID-19? No [email or web address] Information not available 10/15/2024 Are You Deaf Or Do You Have Serious Difficulty Hearing? No [email or web address] Information not available 10/15/2024 What Type Of Diet Are You Following? REGULAR [email or web address] Information not available 10/15/2024 What Is The Highest Grade Or Level Of School You Have Completed Or The Highest Degree You Have Received? 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 Yes [email or web address] Information not available 10/15/2024 Do You Use Protection During Sex? No [email or web address] Information not available 10/15/2024 Do You Use Your Seat Belt Or Car Seat Routinely? Yes [email or web address] Information not available 10/15/2024 Do You Have Smoke And Carbon Monoxide Detectors In Your Home? Yes [email or web address] Information not available 10/15/2024 How Much Tobacco Do You Smoke? No [email or web address] Information not available 10/15/2024 Do You Feel Stressed (tense, Restless, Nervous, Or Anxious, Or Unable To Sleep At Night)? [id number] [email or web address] Information not available 10/15/2024 Do You Use Any Illicit Or Recreational Drugs? No [email or web address] Information not available 10/15/2024 Do You Use Sunscreen Routinely? No [email or web address] Information not available 10/15/2024 Have You Used IV Drugs? No [email or web address] Information not available 10/15/2024 Sex: Unknown Functional Status Question Answer Note LastModified by Organization D etails LastModified Time Are you able to walk? YESWOREST [email or web address] Information not available 10/15/2024 What is your exercise level? None [email or web address] Information not available 10/15/2024 Mental Status None recorded. Family History Relationship Description Onset Age of this Age Resolved Age Notes LastModified by Organization Details LastModified Time Brother Heart disease [email or web address] Not available 2023 14:25:20 Sister Malignant tumor of colon 68 [email or web address] Not available 2023 14:42:00 Medical History Condition Response Allergies (Food, seasonal, environmental ) N Other N Breast Cancer N Drug/Latex Allergies/Reactions N Blood Transfusion N Lung Disease N Dermatologic Disorders N Defects or Inherited Disease N Breast Problem N Gestational Diabetes N Hematologic disorders N Anesthesia Complications N History of STI N Deep Vein Thrombosis N Polycystic ovary syndrome N Anxiety Disorder N Autoimmune disease N Arthritis N Polyps N Infertility N History of abnormal pap N Acid Reflux (GERD) N Cancer N Varicosities N Stroke N Neurologic/Epilepsy N Endometriosis N High Cholesterol N Fibromyalgia N Headaches N Kidney Disease N Heart Problems N [...] SNOMED-CT Code Diagnosis ICD10 Code Diagnosis Note [id number] [facility] [address] [address] 10/15/2024 14:24:31 10/15/2024 14:55:13 Gynecologic examination [id number] Z01.419 Annual gynecologi ryan exam performed. Patient [...] email. mammogram- pt has scheduled 11/03/2024 at [facility] colon cancer screening - PCP to schedule colonoscop y at [facility] (sister has hx colon cancer) DEXA scan- due at age 65 y/o Pap smear- pap w/ HPV updated laboratory evaluation - PCP STI testing - declined Health Concerns Section Related Observation LastModified by Organization Detai ls LastModified Time None Recorded Concern Status LastModified by Organization Details LastModified Time None Recorded Payers Encounter Date Sequence Insurance Name Policy Number Policy Easton Covered Member ID Easton Member ID Guarantor Name 10/15/[address] [facility] [id number] Radha Grant [id number] Radha Grant Notes Date Note Type Note Provider Name and Address Organization Details Recorded Time 10/15/2024 text/html Annual Station Chief Post-MenopausalRep orted bypatient.Menopaus al Symptoms:no menopausal symptoms; [...] New patient presents to establish care. Denies ANESTHESIA RESIDENT concerns.Not sexually active. [facility] [place] - [facility] 10/15/2024 16:05:03 OBGyn Episode No OBEpisode recorded.
== END 2024-11-03 01:17 | disposition home or self-care (01) ==
PROVIDERS: Emergency Provider Emergency Medicine; PCP Internal Medicine
DX: N39.0 Urinary tract infection, site not specified (principal); H66.92 Otitis media, unspecified, left ear; R42 Dizziness and giddiness; Z20.822 Contact with and (suspected) exposure to COVID-19; E78.5 Hyperlipidemia, unspecified; E11.9 Type 2 diabetes mellitus without complications; J45.909 Unspecified asthma, uncomplicated; I10 Essential (primary) hypertension; F32.A Depression, unspecified; Z90.49 Acquired absence of other specified parts of digestive tract; Z79.85 Long-term (current) use of injectable non-insulin antidiabetic drugs; Z79.899 Other long term (current) drug therapy
CPT/HCPCS: 36415; 80053; 81001; 83735; 84145; 85025; 87081; 87086; 87637; 87651; 93005; 96360; 99284; J7030

== ENCOUNTER 2024-11-24 15:00 | Outpatient (RCR) | payer OTHER, SELFPAY ==
--- NOTE | 2024-11-17 17:29 | OPREHPOC ---
Outpatient Therapy Plan of Care This is a Multidisciplinary Plan of Care that may contain components documented by all disciplines (PT, OT, and ST.) PT Problem 1 PT Problem #1 Knowledge Deficit PT Goal 1 Goal / Goal Update [place] with Home Lisa maneuver Target Visit 4 PT Goal 2 Goal / Goal Update Report no incidents of vertigo for 1 entire week Target Visit 4 PT Goal 1 Goal / Goal Update Demonstrate negative Natalio-Dillon pike test bilaterally
--- NOTE | 2024-11-17 17:29 | PTOPEVAL1 ---
Assessment and note entered by Wilfrido Washburn, PT Evaluation Information Assessment Status Evaluation ICD-10 Condition Codes (PT) BPPV H81.12 Onset October 2024 Subjective Information Reports that rolling in bed or positioning she is having as lot of dizziness. She feels unsteady if she walks too fast or turns. Reports that she had vertigo about 30 years ago for the first time. She has had it off and on but has not had it this bad since. Had a severe episode about 3 weeks ago including spinning and nausea. She has not taken any dizziness medication in 5 days. She has lost some appetite. Reports that she is having some minor neck pain. Reported Pain Level Pain Score 0: Self Report Assessment PT Clinical Summary Patient presents with subjective symptoms of vertigo with right head movement. Patient was not positive for nystagmus this date. Her subjective reports would indicate a likely positivity, but was not elicited this date outside of subjective symptoms. Patient instructed to keep a log of symptoms and will follow up next week to ensure resolution of symptoms after Lisa treatment this date to R side. Plan of Care Interventions Neuro Re-education PT Services Indicated Yes Treatment Frequency and 1x/week for 4 visits Duration These treatments will address the objective and functional deficits as defined above. The patient will be advanced safely and appropriately in order for the patient to progress towards his/her prior level of function. Additional exercises will be introduced and as well as a comprehensive home exercise program upon discharge, if needed, ?to ensure carryover of functional gains achieved in the clinic. This treatment plan has been reviewed and agreement upon by the patient.
--- NOTE | 2024-12-25 08:40 | PTOPDC ---
Assessment and note entered by Wilfrido Washburn, PT Evaluation Information Assessment Status Discharge - Pt Not Present ICD-10 Condition Codes (PT) BPPV H81.12 Onset October 2024 Subjective Information Patient contacted clinic requesting discharge from skilled therapy at this time. No follow up requested. Assessment PT Clinical Summary Patient to be discharged from skilled therapy at this time per patient request. Please refer to last treatment note for discharge status. Plan of Care PT Services Indicated D/C
== END 2024-12-25 09:49 | disposition home or self-care (01) ==
LOC: ANHGOSHPT 15:00
PROVIDERS: PCP Internal Medicine; Visit Provider Nurse Practitioner
DX: H81.12 Benign paroxysmal vertigo, left ear (principal)
CPT/HCPCS: 95992; 97112; 97140; 97161

== ENCOUNTER 2024-12-14 13:36 | Outpatient (CLI) | payer OTHER, SELFPAY ==
--- NOTE | ~2024-12-14 | MR_ITS ---
EXAMINATION: MR brain/brain stem wo/w con DATE: 12/14/2024 14:25 INDICATION: Dizziness and giddiness TECHNIQUE: Magnetic resonance imaging (MRI) of the brain and brainstem was performed without and with 15 mL Multihance intravenous contrast. Sequences included sagittal and axial T1-weighted FSE, axial diffusion-weighted FS EPI, axial T2*-weighted GRE, axial T2-weighted FLAIR Propeller, axial T2-weight ed Propeller, small vnqwp-bz-ivol coronal FIESTA, small cfkkq-pm-pmbg coronal T1-weighted FSE, and sm all yplvt-od-blqa axial T1-weighted SPGR. Postcontrast sequences included axial T1-weighted FSE, smal l rzbjg-ub-dbuz coronal T1-weighted FSE, and 3-D axial T1 GARY. Apparent diffusion coefficient (ADC) maps were created. COMPARISON: Head CT dated 12/07/2016 FINDINGS: There are no areas of restricted diffusion to suggest acute infarction. No intracranial hemorrhage or abnormal intracranial mass lesion. There are a few scattered tiny foci of nonspecific increased T2-w eighted signal intensity in the cerebral white matter which is well within normal limits for age and consistent with chronic small vessel ischemic disease. There are no intraparenchymal signal abnormali ties seen on the other pulse sequences. The ventricles are symmetric and normal in size. Normal seven th/eighth cranial nerve complexes. No cerebellopontine angles masses. Tiny bilateral mastoid effusio ns with no middle ear fluid. There are no abnormal extra-axial fluid collections. Flow voids are seen in the cerebral arteries on the T2-weighted sequences consistent with their expected patency. Mild m ucosal thickening the bilateral ethmoid sinuses. Visualized orbits and soft tissues are unremarkable. There are no areas of abnormal enhancement on the post contrast images. IMPRESSION: 1. Normal aging brain with minimal scattered nonspecific white matter T2 hyperintensity which within normal limits for age and likely sequela of chronic small vessel ischemic disease. No acute intracran ial process. 2. Tiny bilateral mastoid effusions. Otherwise unremarkable MRI of the temporal bones and internal au ditory canals. Reviewed, dictated and finalized at location A. UTER SCIENCE TEACHER IMPRESSION: 1. Normal aging brain with minimal scattered nonspecific white matter T2 hyperi ntensity which within normal limits for age and likely sequela of chronic small vessel ischemic disease. No acute intracranial process. 2. Tiny bilateral mastoid effusions. Otherwise unremarkable MRI of the temporal bones and internal auditory canals.
== END 2024-12-14 13:37 | disposition home or self-care (01) ==
LOC: MICIMG 13:37
PROVIDERS: PCP Internal Medicine; Visit Provider Nurse Practitioner
DX: H74.8X3 Other specified disorders of middle ear and mastoid, bilateral (principal); R42 Dizziness and giddiness; H53.8 Other visual disturbances
CPT/HCPCS: 70553; A9577

== ENCOUNTER 2024-12-16 12:30 | Outpatient (CLI) | payer OTHER, SELFPAY ==
--- OUTSIDE RECORDS SUMMARY | 2024-12-16 12:34 | XMS_ITS | Clinical Summary ---
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 Gender Identity Not on file Sexual Orientation Not on file Obstetrics History Last Filed Vital Signs Vital Sign Reading Time Taken Comments Blood Pressure 152/87 11/05/2018 8:10 AM SPINNING MACHINE OPERATOR Pulse 71 11/05/2018 8:10 AM SPINNING MACHINE OPERATOR Temperature - - Respiratory Rate - - Oxygen Saturation - - Inhaled Oxygen Concentration - - Weight 98.4 kg (217 lb) 11/05/2018 8:10 AM SPINNING MACHINE OPERATOR Height 162.6 cm (5' 4 ) 11/05/2018 8:10 AM SPINNING MACHINE OPERATOR Body Mass Index 37.25 11/05/2018 8:10 AM SPINNING MACHINE OPERATOR Plan of Treatment Not on file Insurance [facility] CHOICE PLUS Care Teams Web Applications Developer Relationship Specialty Start Date End Date Sameer Walsh DO PCP - General 01/29/17
--- OUTSIDE RECORDS SUMMARY | 2024-12-16 12:34 | XMS_ITS | Referral Summary ---
Author Organization [facility] Address [address] [place] [address] Care Team Providers Care Care Navigator Name Role Phone Sameer Walsh DO Primary Care Provider [phone] [phone] Source Comments [facility],non-owned Affiliates and Associated Physician Practices is amultiple site organization consisting of ambulatory clinics and hospital sitesin [place], [place], [place] and [place]. This disclosure is being madepursuant to the Care Everywhere program and may not contain all information available regarding this patient. Last updated 18.[facility] Medications * Be aware that medications may [...] 95 05/07/2016 10:55 AM CDT Temperature 36.4 C (97.6 F) 05/07/2016 10:55 AM CDT Respiratory Rate 18 05/07/2016 10:5 5 AM CDT Oxygen Saturation - - Inhaled Oxygen Concentration - - Weight 100.6 kg (221 lb 12.8 oz) 2015 10:55 AM CDT Height 162.6 cm (5' 4 ) 05/07/2016 10:5 5 AM CDT Body Mass Index 38.07 05/07/2016 10:55 AM CDT Plan of Treatment Not on file Care Teams Care Navigator Relationship Specialty Start Date End Date Sameer Walsh DO PCP - General 09/13/15
--- OUTSIDE RECORDS SUMMARY | 2024-12-16 12:34 | XMS_ITS | Continuity of Care Document ---
Author Organization [facility] Address [address] [place] [address] Phone Care Team Providers Care Tank Officer Name Role Phone Parker OD, Alvin Unavailable Unavailable Advance Directives Directive Yes / No Effective Date File Name No Information Encounters Encounter Description Practice Location Reason(s) For Visit Diagnoses Date Provider Providers Copied on Encounter [facility], [address], [place], [place], [id number], [place] tel:[phone] [facility] No Information Telly-0 6-200 5 Parker OD Alvin. [address], [place], [address], [place]. tel:[phone] Family History Family Member Type Diagnosis Age At Onset No Information Payers Payer name Insurance type Covered libertarian ID Authoriza tion(s) No Information Social History [...]
--- OUTSIDE RECORDS SUMMARY | 2024-12-16 12:34 | XMS_ITS | Patient Health Summary ---
Author Organization [facility] Address [address] [place] [address] Care Team Providers Care Chiropractor Assistant Name Role Phone Sameer Walsh DO Primary Care Provider [phone] [phone] Note from [facility],non-owned Affiliates and Associated Physician Practices is amultiple site organization consisting of ambulatory clinics and hospital sitesin [place], [place], [place] and [place]. This disclosure is being madepursuant to the Care Everywhere program and may not contain all information available regarding this patient. Last updated 18.[facility] Medications * Be aware that [...] MCKEON M.D. on 03/15/2016 9:23 AM . Narrative 03/15/2016 9:23 [...] is included. WBC 6.5 3.5 - 10.5 10 3/uL [facility] RBC 4.72 3.90 - 5.00 10 6/uL [facility] Hemoglobin 13.6 12.0 - 15.5 g/dL [facility] Hematocrit 40.2 35.0 - 45.0 % [facility] MCV 85.2 81.0 - 97.[address] [facility] MCH 28.8 28.0 - 34.[address] [facility] MCHC 33.8 32.0 - 36.0 g/dL [facility] Platelet Count 312 150 - 400 10 3/uL [facility] RDW-SD 39.4 36.0 - 50.[address] [facility] RDW-CV 12.7 11.2 - 14.8 % [facility] MPV 9.3 9.3 - 12.[address] [facility] Neutrophils % 36.9 35.0 - 70.0 % [facility] Lymphocytes % 48.4 19.7 - 55.1 % [facility] Monocytes % 11.6 3.0 - 15.0 % [facility] Eosinophils % 2.8 0.0 - 6.0 % [facility] Basophil % 0.3 0.0 - 1.5 % [facility] Neutrophils Absolute 2.4 1.6 - 7.0 10 3/uL [facility] Lymphocyte Absolute 3.1(H) 0.8 - 2.9 10 3/uL [facility] Monocytes Absolute 0.75(H) 0.14 - 0.66 10 3/uL [facility] Eosinophils Absolute 0.18 0.00 - 0.22 10 3/uL [facility] Basophils Absolute 0.02 0.00 - 0.06 10 3/uL [facility] Immature Granulocytes % 0.2 0.0 - 1.0 % [facility] Blood specimen (specimen) BLOOD SPECIMEN / Unknown 02/28/2016 3:47 PM CDT 02/28/2016 4:04 PM CDT Kiya Ewing MD LAB - HEMATOLOGY ORD ERABLES [address] [phone] * (ABNORMAL) MARIA ELENA BLOOD SCREEN (02/28/2016 3:47 PM CDT) MARIA ELENA Positive(A ) None Detected [facility] Venous blood specimen (specimen) 02/28/2016 3:47 PM CDT 02/28/2016 4:04 PM CDT Kiya Ewing MD LAB - CHEMISTRY ORDE RABLES Performing Organization Address City/[facility]/ZIP Co de Phone Number [address] [phone] * HEMOGLOBIN A1C (02/28/2016 3:47 PM CDT) Hemoglobin A1c 5.8 4.4 - 6.3 % [facility] Estimated Average Glucose 120 mg/dL [facility] Comment: HbA1c Interpretation: Treatment target values recommended by ADA and other clinical organizations should be used to evaluate metabolic control in patients. Treatment Target Values: Normal : < 5.7% Pre-diabetes: 5.7-6.4% Diabetes: Equal to or greater than 6.5% Reference: [place] Diabetes Association Standards of Care in Diabetes -2014 In patients 70 years and older consider HbA1c target range of 7.0-7.5% Reference: Diabetes Mellitus in Older People: Position Statement on behalf of the International Association of Gerontology and Geriatrics (IAGG), the Diabetes Working Republican for Older People (EDWPOP), and the International Task Force of Experts in Diabetes. Telly Morfin et al. J [place] Medical Directors Association. 2012 Test results diagnostic [...] Ewing MD LAB - CHEMISTRY KANDY BLACK [facility] Organization Address City/State/ZIP Co de Phone Number [facility] [address] [place] [address] * (ABNORMAL) COMPREHENSIVE METABOLIC PANEL (02/28/2016 3:47 PM CDT) BUN 13 7 - 26 mg/dL [facility] Creatinine 0.9 0.6 - 1.2 mg/dL [facility] Sodium 140 136 - 145 mmol/L [facility] Potassium 3.9 3.5 - 4.5 mmol/L [facility] Chloride 104 98 - 107 mmol/L [facility] CO2 30(H) 22 - 29 mmol/L [facility] Glucose 108 70 - 115 mg/dL [facility] Calcium 9.4 8.4 - 10.2 mg/dL [facility] Protein Total 7.5 6.0 - 8.3 g/dL [facility] Albumin 3.7 3.4 - 5.0 g/dL [facility] Bilirubin Total 0.4 0.2 - 1.2 mg/dL [facility] Alkaline Phosphatase 91 40 - 150 Units/L [facility] ALT 14 0 - 55 Units/L [facility] AST 11 5 - 34 Units/L [facility] Anion Gap 10 8 - 18 [facility] BUN/Creatinine Ratio 14 7 - 23 [facility] Osmolality Calculated 276 270 - 300 mOsm/kg [facility] Albumin/Globulin Ratio 1.0(L) 1.1 - 2.3 [facility] eGFR >60 >60 mL/min/1.[address] [facility] Blood specimen (specimen) BLOOD SPECIMEN / Unknown 02/28/2016 3:47 PM CDT 02/28/2016 4:04 PM CDT Kiya Ewing MD LAB - CHEMISTRY KANDY Rivera Organization Address City/State/ZIP Co de Phone Number [facility] [place] [address], [facility] [phone] * (ABNORMAL) VIOLETTA STAINING PATTERNS REFLEXED (02/28/2016 3:47 PM CDT) Speckled Pattern 1:160(H) [facility] ([facility]) Note Comment [facility] ([facility]) Venous blood specimen (specimen) BLOOD SPECIMEN / Unknown 02/28/2016 3:47 PM CDT 02/29/2016 10:18 AM CDT Narrative [facility] ([facility]) - 03/01/2016 3:29 PM CDT A positive MARIA ELENA result may occur in healthy individuals or be associated with a variety of diseases. See interpre- tation below: Pattern Antigen Detected Suggested Disease Association Homogeneous DNA(ds,ss,), High titers - SLE (Smooth) Histone Speckled Sm, MEAT HANGER, SCL-70, SLE,MCTD,Scleroderma,Sjogrens SS-A/SS-B Nucleolar SCL-70, PM-1/SCL High titers Scleroderma Poly- myositis/Scleroderma Overlap Centromere Centromere PSS w/Crest syndrome variable Kiya Ewing MD LAB - PATHOLOGY/CYTO LOGY ORDERABLES Performing Organization Address City/[facility] [[email or web address]] Co de Phone Number [facility] [employer] ([facility] * MARIA ELENA BLOOD SCREEN W/REFLEX TITER (02/28/2016 3:47 PM CDT) MARIA ELENA IFA See patterns [facility] ([facility]) Comment: Negative <1:80 Borderline 1:80 Positive >1:80 Venous blood specimen (specimen) BLOOD SPECIMEN / Unknown 02/28/2016 3:47 PM CDT 02/29/2016 10:18 AM CDT Narrative [facility] ([facility]) - 03/01/2016 3:29 PM CDT Performed at: [address] [place], [place] [id number] Curber: Monico Wu PhD, Phone: [phone] Kiya Ewing MD LAB - CHEMISTRY KANDY BLACK Performing Organization Address [facility] de Phone Number [facility] ([facility] Care Teams Chiropractor Assistant Relationship Specialty Start Date End Date Sameer Walsh DO PCP - General 09/13/15
--- OUTSIDE RECORDS SUMMARY | 2024-12-16 12:34 | XMS_ITS | Clinical Summary ---
Author Organization [facility] Address [address] [place] [address] Care Team Providers Care Tool And Cutter Grinder Name Role Phone Sameer Walsh DO Primary Care Provider [phone] Source Comments [facility],non-owned Affiliates and Associated Physician Practices is amultiple site organization consisting of ambulatory clinics and hospital sitesin [place], [place], [place] and [place]. This disclosure is being madepursuant to the Care Everywhere program and may not contain all information available regarding this patient. Last updated 18.[facility] Medications * Be aware that medications may [...] age to complete this topic Care Teams Tool And Cutter Grinder Relationship Specialty Start Date End Date Sameer Walsh DO PCP - General 09/13/15
--- OUTSIDE RECORDS SUMMARY | 2024-12-16 12:34 | XMS_ITS | Referral Summary ---
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 Gender Identity Not on file Sexual Orientation Not on file Last Filed Vital Signs Vital Sign Reading Time Taken Comments Blood Pressure 152/87 11/05/2018 8:10 AM SOLUTIONS ENGINEER Pulse 71 11/05/2018 8:10 AM SOLUTIONS ENGINEER Temperature - - Respiratory Rate - - Oxygen Saturation - - Inhaled Oxygen Concentration - - Weight 98.4 kg (217 lb) 11/05/2018 8:10 AM SOLUTIONS ENGINEER Height 162.6 cm (5' 4 ) 11/05/2018 8:10 AM SOLUTIONS ENGINEER Body Mass Index 37.25 11/05/2018 8:10 AM SOLUTIONS ENGINEER Plan of Treatment Not on file Insurance Care Teams Travel Counselor Relationship Specialty Start Date End Date Sameer Walsh DO PCP - General 01/29/17
[2024-12-16 20:11] LABS: Basophils Percent Auto 0.5 % (0.2-1.2); Eosinophils Absolute Auto 0.1 K/mm3 (0-0.3); Hematocrit 44.1 % (37.0-47.0); Hemoglobin 14.3 g/dL (12.0-15.0); Immature Granulocyte Absolute 0.01 K/mm3 (0.00-0.031); Immature Granulocyte Percent A 0.2 % (0-0.5); Lymphocytes Absolute Auto 2.37 K/mm3 (0.9-3.2); Lymphocytes Percent Auto 38.3 % (18.3-44.2); Mean Corpuscular HGB Conc 32.4 g/dl (32-36); Mean Corpuscular Hemoglobin 28.3 pg (26-34); Mean Corpuscular Volume 87.3 fl (80-100); Mean Platelet Volume 10.4 fl (7.4-10.4); Monocytes Absolute Auto 0.6 K/mm3 (0.1-0.6); Monocytes Percent Auto 10.3 % (2.6-8.5); Neutrophils Absolute Auto 3.1 K/mm3 (1.3-6.7); Neutrophils Percent Auto 49.7 % (45.5-73.1); Platelet Count Result 327 k/mm3 (150-375); Red Blood Count 5.05 M/mm3 (4.2-5.4); Red Cell Distribution Width 13.4 % (11.5-14.5); White Blood Count 6.2 K/mm3 (4.5-10.0)
[2024-12-16 20:59] LABS: Alanine Aminotransferase 15 U/L (6-35); Albumin Level 4.2 g/dL (3.5-5.1); Alkaline Phosphatase 104 U/L (38-126); Anion Gap 11 mmol/L (4-12); Aspartate Amino Transferase 25 U/L (14-36); Bilirubin,Total 0.7 mg/dL (0.2-1.3); Blood Urea Nitrogen 10 mg/dL (7-17); Calcium 9.4 mg/dL (8.4-10.2); Carbon Dioxide 26 mmol/L (22-30); Chloride 103 mmol/L (98-107); Estimated Glomerular Filt Rate > 60; Glucose 102 mg/dL (65-110); Potassium 4.4 mmol/L (3.4-5.0); Sodium 140 mmol/L (137-145)
[2024-12-16 21:16] LABS: Hemoglobin A1C 5.4 % (<5.7)
[2024-12-17 01:55] LABS: Vitamin D 25 Hydroxy 40.3 ng/mL
== END 2024-12-16 12:31 | disposition home or self-care (01) ==
LOC: ANHGOSHLAB 12:32
PROVIDERS: PCP Internal Medicine; Visit Provider Nurse Practitioner
DX: R42 Dizziness and giddiness (principal); E11.9 Type 2 diabetes mellitus without complications; E55.9 Vitamin D deficiency, unspecified
CPT/HCPCS: 36415; 80053; 82306; 83036; 84443; 85025

== ENCOUNTER 2025-01-04 07:57 | Outpatient (CLI) | payer OTHER, SELFPAY ==
--- NOTE | 2025-01-04 08:02 | ECHO_ITS ---
Patient Info Name: Radha Grant Age: 64 years : 1960 Gender: Female Ht: 64 in Wt: 188 lbs BSA: 1.99 m2 HR: 74 bpm BP: 127 / 89 mmHg Technical Quality: Fair Exam Date: 01/04/2025 8:35 AM Exam Location: Echo Lab Patient Status: Outpatient Admit Date: 01/04/2025 Staff Ordering Physician: Alina Drake NP Charge Entry: Dinah Fitzgerald RDCS Attending Provider: Alina Drake NP Referring Physician: Noelle CRAWFORD; Exam Type: CA echo doppler color flow Study Info Indications I45.10 - Unspecified right bundle-branch block Complete two-dimensional, color flow and Doppler transthoracic echocardiogram is performed. Summary 1. Complete two-dimensional, color flow and Doppler transthoracic echocardiogram is performed. 2. Left ventricular chamber dimension is normal. 3. Left ventricular systolic function is normal, estimated at 60-65%. 4. The left ventricular diastolic function is grade I diastolic dysfunction. 5. E/e' 10 is mildly elevated. 6. Global longitudinal strain is abnormal at -15.9%. 7. There is mild aortic valve sclerosis. 8. There is trace aortic valve regurgitation. 9. The mitral valve has mildly calcified annulus. 10. There is trace tricuspid valve regurgitation. 11. No pulmonary hypertension, estimated pulmonary arterial systolic pressure is 28 mmHg. 12. There is trace pulmonic regurgitation. Left Ventricle E/e' 10 is mildly elevated. Global longitudinal strain is abnormal at -15.9%. Left ventricular chamber dimension is normal. Left ventricular systolic function is normal, estimated at 60-65%. The left ventricular diastolic function is grade I diastolic dysfunction. Right Ventricle Right ventricular chamber dimension is normal. Right ventricular systolic function is normal. Left Atria Left atrial chamber dimension is normal. Right Atria Right atrial chamber dimension is normal. Aortic Valve The aortic valve is trileaflet. There is mild aortic valve sclerosis. There is no aortic valve stenosis. There is trace aortic valve regurgitation. Pulmonic Valve There is trace pulmonic regurgitation. Mitral Valve The mitral valve has mildly calcified annulus. There is no mitral valve stenosis. There is no mitral valve regurgitation. Tricuspid Valve There is trace tricuspid valve regurgitation. No pulmonary hypertension, estimated pulmonary arterial systolic pressure is 28 mmHg. Pericardium/Pleural There is no pericardial effusion. Inferior Vena Cava Normal inferior vena cava with >50% collapse upon inspiration consistent with normal right atrial pressure, 5 mmHg. Aorta The aortic root size at the sinus of Valsalva is normal. Left Ventricular Outflow Tract Name Value Normal LVOT 2D LVOT Diameter 1.9 cm LVOT Doppler LVOT Peak Gradient 5 mmHg LVOT Mean Gradient 3 mmHg LVOT VTI 22 cm LVOT VTI/AV VTI Ratio 0.7 LVOT Stroke Volume 65 ml LVOT CO 4.8 l/min LVOT CI 2.4 l/min/m2 Pulmonic Valve Name Value Normal RVOT Doppler RVOT Peak Gradient 2 mmHg PV Doppler PV Peak Gradient 3 mmHg Mitral Valve Name Value Normal MV Doppler MV Decel Peñuelas 330 cm/s2 MV PHT 72 ms MV Area (PHT) 3.0 cm2 4.0-5.0 MV Diastolic Function MV E Peak Velocity 82 cm/s MV A Peak Velocity 126 cm/s MV E/A 0.7 MV Decel Time 250 ms Tricuspid Valve Name Value Normal TV Regurgitation Doppler TR Peak Velocity 242 cm/s TR Peak Gradient 23 mmHg Estimated PAP/RSVP RA Pressure 5 mmHg <=5 PA Systolic Pressure 28 mmHg <36 RV Systolic Pressure 28 mmHg <36 Aorta Name Value Normal Ascending Aorta Ao Root Diameter (MM) 3.1 cm Ao Root Diam Index (MM) 1.6 cm/m2 Aortic Valve Name Value Normal AV Doppler AV Peak Velocity 152 cm/s AV Peak Gradient 9 mmHg AV Mean Gradient 6 mmHg AV VTI 32 cm AV Area (Cont Eq VTI) 2.0 cm2 >=3.0 AV Area (Cont Eq Rubio) 2.1 cm2 AV Regurgitation 2D LVOT Area 2.9 cm2 AV Regurgitation Doppler AR Decel Time 1,820 ms AR Decel Peñuelas 192 cm/s2 AR PHT 528 ms Ventricles Name Value Normal LV Dimensions 2D/MM IVS Diastolic Thickness (2D) 0.9 cm 0.6-1.0 LVID Diastole (2D) 4.4 cm 3.8-5.2 LVIW Diastolic Thickness (2D) 0.9 cm 0.6-0.9 LVID Systole (2D) 2.7 cm 2.2-3.5 LVOT Diameter 1.9 cm LV Mass (2D Cubed) 128.03 g 67.00-162.00 LV Mass Index (2D Cubed) 64 g/m2 43-95 Relative Wall Thickness (2D) 0.42 LV Fractional Shortening/Ejection Fraction 2D/MM LV Fractional Shortening (2D) 38 % 27-45 LV EF (2D Teicholz) 69 % 54-74 LV Diastolic Volume (4C MOD) 84 ml LV EF (4C MOD) 52 % LV Diastolic Volume (2C MOD) 66 ml LV EF (2C MOD) 57 % LV Diastolic Volume (BP MOD) 74 ml 46-106 LV Diastolic Volume Index (BP MOD) 37 ml/m2 29-61 LV Systolic Volume (BP MOD) 33 ml 14-42 LV Systolic Volume Index (BP MOD) 17 ml/m2 8-24 LV EF (BP MOD) 55 % 54-74 LV Diastolic Length (4C) 7.8 cm LV Systolic Length (4C) 6.7 cm LV Stroke Volume (4C MOD) 44 ml Atria Name Value Normal LA Dimensions LA Dimension (MM) 3.6 cm 2.7-3.8 LA Volume (4C A-L) 29 ml LA Volume (BP A-L) 28 ml RA Dimensions RA Area (4C) 10.8 cm2 <=18.0 EchoPAC Name Value Normal AutoEF LVCO_BiP_Q (Tart3XVA) 3.0 l/min LVEF_BiP_Q (Iigy9SJK) 50 % LVSV_BiP_Q (Bgjj7MWM) 41 ml LVVED_BiP_Q (Qnds8RZD) 82 ml LVVES_BiP_Q (Rxtg5ORI) 41 ml HR_4Ch_Q (Pfzs3IVS) 73 bpm LVCO_4Ch_Q (Wadc7SME) 2.7 l/min LVEF_4Ch_Q (Mcly7WLQ) 49 % LVLd_4Ch_Q (Glst6PYJ) 7.8 cm LVLs_4Ch_Q (Fvzf7XAA) 6.6 cm LVSV_4Ch_Q (Cqbq8QSB) 37 ml LVVED_4Ch_Q (Icnw9CGH) 75 ml LVVES_4Ch_Q (Xeni3VUS) 39 ml HR_2Ch_Q (Uddy4ZGO) 72 bpm LVCO_2Ch_Q (Wcax1MKW) 3.2 l/min LVEF_2Ch_Q (Vcwt2OXA) 50 % LVLd_2Ch_Q (Mmof1PZL) 7.9 cm LVLs_2Ch_Q (Fguk5TNW) 6.5 cm LVSV_2Ch_Q (Mnhl6APD) 45 ml LVVED_2Ch_Q (Nplm7JRT) 90 ml LVVES_2Ch_Q (Sxxf7DHD) 45 ml HILDA AA peak sys SL (AWMA) 14.5 % AAS peak sys SL (AWMA) 18.6 % AI peak sys SL (AWMA) 22.7 % AL peak sys SL (AWMA) 10.6 % AP peak sys SL (AWMA) 4.5 % peak sys SL (AWMA) 21.7 % AVC (AWMA) 401 ms BA peak sys SL (AWMA) 14.3 % BAS peak sys SL (AWMA) 11.3 % BI peak sys SL (AWMA) 16.8 % BL peak sys SL (AWMA) 19.8 % BP peak sys SL (AWMA) 20.4 % BS peak sys SL (AWMA) 11.6 % G peak SL(A2C) (AWMA) 16.7 % G peak SL(A4C) (AWMA) 15.7 % G peak SL(APLAX) (AWMA) 15.4 % G peak SL(Avg) (AWMA) 15.9 % MA peak sys SL (AWMA) 12.9 % MAS peak sys SL (AWMA) 21.6 % AZ peak sys SL (AWMA) 19.5 % ML peak sys SL (AWMA) 10.9 % MP peak sys SL (AWMA) 12.5 % MS peak sys SL (AWMA) 19.2 % Report Signatures
--- OUTSIDE RECORDS SUMMARY | 2025-01-04 08:05 | XMS_ITS | Clinical Summary ---
Author Organization [facility] [employer] Address [address] [place] [address] Care Team Providers Care Furnace Operator Oil Or Gas Name Role Phone Sameer Walsh DO Primary Care Provider [phone] [phone] Source Comments [facility] [employer],non-owned Affiliates and Associated Physician Practices is amultiple site organization consisting of ambulatory clinics and hospital sitesin [place], [place], [place] and [place]. This disclosure is being madepursuant to the Care Everywhere program and may not contain all information available regarding this patient. Last updated 18.[facility] [employer] Medications * Be aware that medications may [...] 05/07/2016 10:55 AM CDT Plan of Treatment Upcoming Encounters Date Type Department Care Team (Late st Contact Info) Description 01/27/2025 1:45 PM CDT Office Visit [facility] - Family Medicine [address] [place] [address], [place] [address] Saravanan Miller MD [address] [place] [phone] Health Maintenance Due Date Last Done Comments [...] VACCINE (1 of 2) 2010 COVID-19 VACCINE (2023-2 5 season) 2024 INFLUENZA VACCINE (#1) 2024 [...] age to complete this topic Care Teams Furnace Operator Oil Or Gas Relationship Specialty Start Date End Date Sameer Walsh DO PCP - General 09/13/15
--- OUTSIDE RECORDS SUMMARY | 2025-01-04 08:05 | XMS_ITS | Referral Summary ---
Author Organization [facility] Address [address] [place] [address] Care Team Providers Care Filling Station Equipment Mechanic Name Role Phone Sameer Walsh DO Primary Care Provider [phone]- [phone] Encounters Date Type Department Care Team Description 12/23/2024 Telephone [place] [facility] ([facility]) - [facility] ENT [address] [facility] [address] [place] [address] [place] [address] Claire Sher MS from Last 3 Months Allergies No known active allergies Medications sertraline [...] on file Legal Sex Female 4:08 AM DIGITAL FORENSIC EXAMINER Gender Identity Not on file Sexual Orientation Not on file Last Filed Vital Signs Vital Sign Reading Time Taken Comments Blood Pressure 152/87 11/05/2018 8:10 AM DIGITAL FORENSIC EXAMINER Pulse 71 11/05/2018 8:10 AM DIGITAL FORENSIC EXAMINER Temperature - - Respiratory Rate - - Oxygen Saturation - - Inhaled Oxygen Concentration - - Weight 98.4 kg (217 lb) 11/05/2018 8:10 AM DIGITAL FORENSIC EXAMINER Height 162.6 cm (5' 4 ) 11/05/2018 8:10 AM DIGITAL FORENSIC EXAMINER Body Mass Index 37.25 11/05/2018 8:10 AM DIGITAL FORENSIC EXAMINER Plan of Treatment Not on file Insurance [facility] [employer] [facility] H[facility]/PPO Address: [id number] [place] [address] [facility] Address: [address] [address] [place] [address] [place] [address] Care Teams Filling Station Equipment Mechanic Relationship Specialty Start Date End Date Sameer Walsh DO PCP - General 01/29/17
--- OUTSIDE RECORDS SUMMARY | 2025-01-04 08:05 | XMS_ITS | Data Portability ---
Author Organization [facility] Address [address] [place] [address] Assessment Encounter Date Assessment Date Assessment LastModified by Organization Details LastModified Time 10/15/2024 10/15/2024 Annual gynecological exam performed. Patient will come back in a year unless there are new symptoms. [email or web address] Not available 10/15/2024 14:25:04 Plan of Treatment Reminders Order Date Submit Date Provider Last Modified By Organization Details Last Modified Time Details Appointments None recorded. Lab pap, IG + HR HPV - HPV regardless but if HPV is positive need subtyping 16,18/45 2023 024 [facility] (Lab), [address], [place], [address], 5 07:46:25 Referral None recorded. Procedures None [...] Provi tye: Dermo dy, Alina , ANP, CROWN PERFORATOR OPERATOR Colle cted: 10/15 1513 Order ing Locat [...] epith elial Lesovi borges or Andria yoder ([facility]) . Elect cheri campbell luz marina d by Rosa Mitchell , CT on 025 at 0642 QUANTOMETER OPERATOR ----- ----- ----- ----- ----- ----- ----- [...] as clini cheryl angela nted. Not Available [facility] (Lab) [address], [place], [address], 10/29/2024 07:46:25 Result Notes None recorded. Procedures Surgical History Date Name Laterality Status Provider Name and Address Organization Details Recorded Time 01/27/20 07 procedure on nerve completed [facility] 10/15/2024 14:36:53 07/28/19 99 Cholecystectomy completed [facility] 10/15/2024 14:36:32 04/02/19 83 Caesarean Section completed [facility] 10/15/2024 14:32:28 Imaging Results None [...] Updated DateTime 10/15/2024 162.56 cm 34.6 kg/m2 88857.5 g 123 mm[Hg] 78 mm[Hg] [facility] 14:29:00 Social History Question Answer Notes LastModified by Organizat ion Details LastModified Time Do You Have An Advance Directive? No [email or web address] Information not available 10/15/2024 What Is Your Level Of Alcohol Consumption? None Information not available 10/15/2024 Are You Blind Or Do You Have Difficulty Seeing? No [email or web address] Information not available 10/15/2024 What Is Your Level Of Caffeine Consumption? Moderate [email or web address] Information not available 10/15/2024 How Much Tobacco Do You Chew? None [email or web address] Information not available 10/15/2024 In The 14 Days Before Symptom Onset, Have You Had Close Contact With A Laboratory-confir med COVID-19 While That Case Was Ill? No [email or web address] Information not available 10/15/2024 In The 14 Days Before Symptom Onset, Have You Had Close Contact With A Person Who Is Under Investigation For COVID-19 While That Person Was Ill? No [email or web address] Information not available 10/15/2024 Have You Been To An Area Known To Be High Risk For COVID-19? No [email or web address] Information not available 10/15/2024 Are You Deaf Or Do You Have Serious Difficulty Hearing? No [email or web address] Information not available 10/15/2024 What Type Of Diet Are You Following? REGULAR Information not available 10/15/2024 What Is The Highest Grade Or Level Of School You Have Completed Or The Highest Degree You Have Received? 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 Yes [email or web address] Information not available 10/15/2024 Do You Use Protection During Sex? No Information not available 10/15/2024 Do You Use Your Seat Belt Or Car Seat Routinely? Yes Information not available 10/15/2024 Do You Have Smoke And Carbon Monoxide Detectors In Your Home? Yes [email or web address] Information not available 10/15/2024 How Much Tobacco Do You Smoke? No [email or web address] Information not available 10/15/2024 Do You Feel Stressed (tense, Restless, Nervous, Or Anxious, Or Unable To Sleep At Night)? [id number] Information not available 10/15/2024 Do You Use Any Illicit Or Recreational Drugs? No Information not available 10/15/2024 Do You Use Sunscreen Routinely? No [email or web address] Information not available 10/15/2024 Have You Used IV Drugs? No Information not available 10/15/2024 Sex: Unknown Functional Status Question Answer Note LastModified by Organization D etails LastModified Time Are you able to walk? YESWOREST [email or web address] Information not available 10/15/2024 What is your exercise level? None [email or web address] Information not available 10/15/2024 Mental Status None recorded. Family History Relationship Description Onset Age of this Age Resolved Age Notes LastModified by Organization Details LastModified Time Brother Heart disease [email or web address] Not available 2023 14:25:20 Sister Malignant tumor [...] SNOMED-CT Code Diagnosis ICD10 Code Diagnosis Note [id number] [facility] [address] [address] 10/15/2024 14:24:31 10/15/2024 14:55:13 Gynecologic examination [id number] Z01.419 Annual gynecologi ryan exam performed. Patient [...] email. mammogram- pt has scheduled 11/03/2024 at [facility] colon cancer screening - PCP to schedule colonoscop y at [facility] (sister has hx colon cancer) DEXA [...] [place] Member ID Guarantor Name 10/15/2024 1 [facility] [id number] Radha Grant [id number] Radha Rudy Notes Date Note Type Note Provider Name and Address Organization Details Recorded Time 10/15/2024 text/html Annual Belting Cutter Post-MenopausalRep orted bypatient.Menopaus al Symptoms:no menopausal symptoms; [...] New patient presents to establish care. Denies MERCHANDISE COMPLAINT ADJUSTER concerns.Not sexually active. Sari [facility] 10/15/2024 16:05:03 OBGyn Episode Ob Episode Information Episode Created Date Number of Fetuses Patient Bloodtype Patient rh Status Prepregnancy Weight lbs Domestic Partner Domestic Partner Phone Father Name Trimmer Tailer Status 10/15/20 24 1 CLOSED Fetus Data First Name Last Name Admitted to NICU Weight (g) Sex Living Outcome Pediatric Complications Fetus ID Race Codes Race Delivery Type 3089.86 8704 M Full Term [address] Primary Rahul Calculation Initial Rahul Date Initial [...] Domestic Partner Domestic Partner Phone Father Name Trimmer Tailer Status 10/15/20 24 1 CLOSED Fetus Data First Name Last Name Admitted to NICU Weight (g) Sex Living Outcome Pediatric Complications Fetus ID Race Codes Race Delivery Type 2579.57 7704 M Full Term [id number] Primary Rahul Calculation Initial Rahul Date Initial [...]
--- OUTSIDE RECORDS SUMMARY | 2025-01-04 08:06 | XMS_ITS | Clinical Summary ---
Author Organization [facility] Address [address] [place] [address] Care Team Providers Care Surgical Elastic Knitter Hand Frame Name Role Phone Sameer Walsh DO Primary Care Provider [phone] Allergies No known active allergies Medications sertraline [...] Active Active Problems No known active problems Encounters Date Type Department Care Team Description 12/23/2024 Telephone [facility] Advanced Medicine ([facility]) - [facility] ENT [address] 11th [place] [address] [place] [address] Claire Sher MS from Last 3 Months Surgical History Surgery Date Site/Laterality Comments TONSILLECTOMY [...] on file Legal Sex Female 4:08 AM AGRONOMY RESEARCH MANAGER Gender Identity Not on file Sexual Orientation Not on file Obstetrics History Last Filed Vital Signs Vital Sign Reading Time Taken Comments Blood Pressure 152/87 11/05/2018 8:10 AM AGRONOMY RESEARCH MANAGER Pulse 71 11/05/2018 8:10 AM AGRONOMY RESEARCH MANAGER Temperature - - Respiratory Rate - - Oxygen Saturation - - Inhaled Oxygen Concentration - - Weight 98.4 kg (217 lb) 11/05/2018 8:10 AM AGRONOMY RESEARCH MANAGER Height 162.6 cm (5' 4 ) 11/05/2018 8:10 AM AGRONOMY RESEARCH MANAGER Body Mass Index 37.25 11/05/2018 8:10 AM AGRONOMY RESEARCH MANAGER Plan of Treatment Not on file Insurance [facility] H[facility]/PPO Address: [place] [address] [facility] HMO/PPO Address: [place] [address] Care Teams Surgical Elastic Knitter Hand Frame Relationship Specialty Start Date End Date Sameer Walsh DO PCP - General 01/29/17
--- OUTSIDE RECORDS SUMMARY | 2025-01-04 08:06 | XMS_ITS | Referral Summary ---
Author Organization [facility] Address [address] [place] [address] Care Team Providers Care Power Station Operator Name Role Phone Sameer Walsh DO Primary Care Provider [phone] [phone] [facility],non-owned Affiliates and Associated Physician Practices is amultiple site organization consisting of ambulatory clinics and hospital sitesin [place], [place], [place] and [place]. This disclosure is being madepursuant to the Care Everywhere program and may not contain all information available regarding this patient. Last updated 18.[facility] Medications * Be aware that medications may [...] Visit [facility] [address] [place] [address], [facility] [place] [address] Saravanan Miller MD [address] [place] [phone] Care Teams Power Station Operator Relationship Specialty Start Date End Date Sameer Walsh DO PCP - General 09/13/15
--- OUTSIDE RECORDS SUMMARY | 2025-01-04 08:06 | XMS_ITS | Continuity of Care Document ---
Author Organization [facility] Address [address] [place] [address] Phone Care Team Providers Care Bisque Tile Burner Name Role Phone Parker OD, Alvin Unavailable Unavailable Advance Directives Directive Yes / No Effective Date File Name No Information Encounters Encounter Description Practice Location Reason(s) For Visit Diagnoses Date Provider Providers Copied on Encounter [facility], [address], [place], [place], [id number], [place] tel:[phone] [facility] No Information Telly-0 6-200 5 Parker OD Alvin. [address], [place], [address], [place]. tel:[phone] Family History Family Member Type Diagnosis Age [...]
--- OUTSIDE RECORDS SUMMARY | 2025-01-04 08:06 | XMS_ITS | Patient Health Summary ---
Author Organization [facility] Address [address] [place] [place] [address] Care Team Providers Care Judicial Reporter Name Role Phone NidiadashSameer shen DO Primary Care Provider [phone] Note from [facility],non-owned Affiliates and Associated Physician Practices is amultiple site organization consisting of ambulatory clinics and hospital sitesin [place], [place], [place] and [place]. This disclosure is being madepursuant to the Care Everywhere program and may not contain all information available regarding this patient. Last updated 18.[facility] Medications * Be aware that medications [...] WBC 6.5 3.5 - 10.5 10 3/uL [facility] RBC 4.72 3.90 - 5.00 10 6/uL [facility] Hemoglobin 13.6 12.0 - 15.5 g/dL [facility] Hematocrit 40.2 35.0 - 45.0 % [facility] MCV 85.2 81.0 - 97.0 fL [facility] MCH 28.8 28.0 - 34.0 pg [facility] MCHC 33.8 32.0 - 36.0 g/dL [facility] Platelet Count 312 150 - 400 10 3/uL [facility] RDW-SD 39.4 36.0 - 50.0 fL [facility] RDW-CV 12.7 11.2 - 14.8 % [facility] MPV 9.3 9.3 - 12.8 fL [facility] Neutrophils % 36.9 35.0 - 70.0 % [facility] Lymphocytes % 48.4 19.7 - 55.1 % [facility] Monocytes % 11.6 3.0 - 15.0 % [facility] Eosinophils % 2.8 0.0 - 6.0 % [facility] Basophil % 0.3 0.0 - 1.5 % [facility] Neutrophils Absolute 2.4 1.6 - 7.0 10 3/uL [facility] Lymphocyte Absolute 3.1(H) 0.8 - 2.9 10 3/uL [facility] Monocytes Absolute 0.75(H) 0.14 - 0.66 10 3/uL [facility] Eosinophils Absolute 0.18 0.00 - 0.22 10 3/uL [facility] Basophils Absolute 0.02 0.00 - 0.06 10 3/uL [facility] Immature Granulocytes % 0.2 0.0 - 1.0 % [facility] Blood specimen (specimen) BLOOD SPECIMEN / Unknown 02/28/2016 3:47 PM CDT 02/28/2016 4:04 PM CDT Kiya Ewing MD LAB - HEMATOLOGY ORD ERABLES [address] [phone] * (ABNORMAL) MARIA ELENA BLOOD SCREEN (02/28/2016 3:47 PM CDT) MARIA ELENA Positive(A ) None Detected [facility] Venous blood specimen (specimen) 02/28/2016 3:47 PM CDT 02/28/2016 4:04 PM CDT Kiya Ewing MD LAB - CHEMISTRY ORDE RABLES Performing Organization Address City/[facility]/ZIP Co de Phone Number [address] [phone] * HEMOGLOBIN A1C (02/28/2016 3:47 PM CDT) Hemoglobin A1c 5.8 4.4 - 6.3 % [facility] Estimated Average Glucose 120 mg/dL [facility] Comment: HbA1c Interpretation: Treatment target values recommended by ADA and other clinical organizations should be used to evaluate metabolic control in patients. Treatment Target Values: Normal : < 5.7% Pre-diabetes: 5.7-6.4% Diabetes: Equal to or greater than 6.5% Reference: [place] Diabetes Association Standards of Care in Diabetes -2014 In patients 70 years and older consider HbA1c target range of 7.0-7.5% Reference: Diabetes Mellitus in Older People: Position Statement on behalf of the International Association of Gerontology and Geriatrics (IAGG), the Diabetes Working Libertarian for Older People (EDWPOP), and the International Task Force of Experts in Diabetes. Telly Morfin et al. J [place] Medical Directors Association. 2012 Test results diagnostic [...] Ewing MD LAB - CHEMISTRY KANDY BLACK [facility] Organization Address City/State/ZIP Co de Phone Number [facility] [address] [place] [address] * (ABNORMAL) COMPREHENSIVE METABOLIC PANEL (02/28/2016 3:47 PM CDT) BUN 13 7 - 26 mg/dL [facility] Creatinine 0.9 0.6 - 1.2 mg/dL [facility] Sodium 140 136 - 145 mmol/L [facility] Potassium 3.9 3.5 - 4.5 mmol/L [facility] Chloride 104 98 - 107 mmol/L [facility] CO2 30(H) 22 - 29 mmol/L [facility] Glucose 108 70 - 115 mg/dL [facility] Calcium 9.4 8.4 - 10.2 mg/dL [facility] Protein Total 7.5 6.0 - 8.3 g/dL [facility] Albumin 3.7 3.4 - 5.0 g/dL [facility] Bilirubin Total 0.4 0.2 - 1.2 mg/dL [facility] Alkaline Phosphatase 91 40 - 150 Units/L [facility] ALT 14 0 - 55 Units/L [facility] AST 11 5 - 34 Units/L [facility] Anion Gap 10 8 - 18 [facility] BUN/Creatinine Ratio 14 7 - 23 [facility] Osmolality Calculated 276 270 - 300 mOsm/kg [facility] Albumin/Globulin Ratio 1.0(L) 1.1 - 2.3 [facility] eGFR >60 >60 mL/min/1.7 3 m2 [facility] Blood specimen (specimen) BLOOD SPECIMEN / Unknown 02/28/2016 3:47 PM CDT 02/28/2016 4:04 PM CDT Kiya Ewing MD LAB - CHEMISTRY KANDY Rivera Organization Address City/State/ZIP Co de Phone Number [facility] [place] [address], [facility] [phone] * (ABNORMAL) VIOLETTA STAINING PATTERNS REFLEXED (02/28/2016 3:47 PM CDT) Speckled Pattern 1:160(H) [facility] ([employer]) Note Comment [facility] ([employer]) Venous blood specimen (specimen) BLOOD SPECIMEN / Unknown 02/28/2016 3:47 PM CDT 02/29/2016 10:18 AM CDT Narrative [facility] ([facility]) - 03/01/2016 3:29 PM CDT A positive MARIA ELENA result may occur in healthy individuals or be associated with a variety of diseases. See interpre- tation below: Pattern Antigen Detected Suggested Disease Association Homogeneous DNA(ds,ss,), High titers - SLE (Smooth) Histone Speckled Sm, CORONER'S JUROR, SCL-70, SLE,MCTD,Scleroderma,Sjogrens SS-A/SS-B Nucleolar SCL-70, PM-1/SCL High titers Scleroderma Poly- myositis/Scleroderma Overlap Centromere Centromere PSS w/Crest syndrome variable Kiya Ewing MD LAB - PATHOLOGY/CYTO LOGY ORDERABLES Performing Organization Address City/[facility] Co de Phone Number [facility]) * MARIA ELENA BLOOD SCREEN W/REFLEX TITER (02/28/2016 3:47 PM CDT) MARIA ELENA IFA See patterns [facility]) Comment: Negative <1:80 Borderline 1:80 Positive >1:80 Venous blood specimen (specimen) BLOOD SPECIMEN / Unknown 02/28/2016 3:47 PM CDT 02/29/2016 10:18 AM CDT Narrative [facility] ([employer]) - 03/01/2016 3:29 PM CDT Performed at: [address] [place], [place] [id number] Warehouse Operator: Monico Wu PhD, Phone: [phone] Kiya Ewing MD LAB - CHEMISTRY KANDY BLACK Performing Organization Address [facility] de Phone Number [facility] ([employer] [facility]) Care Teams Judicial Reporter Relationship Specialty Start Date End Date Sameer Walsh DO PCP - General 09/13/15
--- OUTSIDE RECORDS SUMMARY | 2025-01-04 08:06 | XMS_ITS | CONTINUITY OF CARE DOCUMENT ---
Author Name jaquelin hammer Address Unknown Organization [facility] Office Address [address] [place] [address] Phone [phone] Care Team Providers Care Enrichment Assistant Name Role Phone Susi Manzanares MD Unavailable [phone] Susi Manzanares MD Unavailable INSURANCE PROVIDERS Payer name Policy type / Coverage type [place] red alliance party ID [facility] [id number] Other [id number]
== END 2025-01-04 07:58 | disposition home or self-care (01) ==
LOC: ANHCARD 07:58
PROVIDERS: PCP Internal Medicine; Visit Provider Nurse Practitioner
DX: R94.31 Abnormal electrocardiogram [ECG] [EKG] (principal); I45.10 Unspecified right bundle-branch block; I10 Essential (primary) hypertension
CPT/HCPCS: 93306

== ENCOUNTER 2025-01-25 07:35 | Outpatient (CLI) | payer OTHER, SELFPAY ==
--- NOTE | ~2025-01-25 | MM_ITS ---
EXAMINATION: MM screening jossie BI w teri HISTORY: Screening mammogram TECHNIQUE: Craniocaudal and mediolateral oblique 3-D tomosynthesis images were obtained and synthetic 2-D images were generated. CAD analysis was submitted and interpreted. COMPARISON: 09/03/2019 BREAST PARENCHYMAL COMPOSITION:Not Dense. There are scattered areas of fibroglandular density. FINDINGS: No suspicious mass, calcification, or architectural distortion are identified in either aline ast to suggest malignancy. There has been no suspicious interval change. IMPRESSION: No mammographic evidence of malignancy. Recommend routine screening mammography in one year. BI-RADS Category 1: Negative Reviewed, dictated and finalized at location .
--- OUTSIDE RECORDS SUMMARY | 2025-01-25 07:39 | XMS_ITS | Continuity of Care Document ---
Author Organization [facility] Address [address] [place] [address] Phone Care Team Providers Care Director Of Digital Technology Name Role Phone Parker OD, Alvin Unavailable Unavailable Advance Directives Directive Yes / No Effective Date File Name No Information Encounters Encounter Description Practice Location Reason(s) For Visit Diagnoses Date Provider Providers Copied on Encounter [facility], [address], [place], [place], [id number], [place] tel:[phone] [facility] No Information Telly-0 6-200 5 Parker OD Alvin. [address] , [address], [place], [address], [place]. tel:[phone] Family History Family Member Type Diagnosis Age At Onset No Information Payers Payer name Insurance type Covered green party ID Authoriza tion(s) No Information Social [...]
--- OUTSIDE RECORDS SUMMARY | 2025-01-25 07:39 | XMS_ITS | CONTINUITY OF CARE DOCUMENT ---
Author Name jaquelin hammer Address Unknown Organization [facility] Office Address [address] [place] [address] Phone [phone] Care Team Providers Care Curriculum Specialist Name Role Phone Susi Manzanares MD Unavailable Susi Manzanares MD Unavailable INSURANCE PROVIDERS Payer name Policy type / Coverage type [place] red democrat ID [facility] [id number] Other [id number]
--- OUTSIDE RECORDS SUMMARY | 2025-01-25 07:39 | XMS_ITS | Clinical Summary ---
Author Organization [facility] Address [address] [place] [address] Care Team Providers Care Guest Services Manager Name Role Phone Sameer Walsh DO Primary Care Provider [phone] Source Comments [facility],non-owned Affiliates and Associated Physician Practices is amultiple site organization consisting of ambulatory clinics and hospital sitesin [place], [place], [place] and [place]. This disclosure is being madepursuant to the Care Everywhere program and may not contain all information available regarding this patient. Last updated 18.[facility] Medications * Be aware that medications may [...] Visit [facility] [address] [place] [address], [place] [address] Saravanan iMller MD [address] [place] [phone] Health Maintenance Due Date Last Done Comments [...] to complete this topic MENINGOCOCCAL (Group B) VACC INE SHARED DECISION-MAKING Aged Out No longer eligibl e based on patient's age to complete this topic MENINGOCOCCAL GROUPS A/C/Y/W VACCINE Aged Out No longer eligible b ased on patient's age to complete this topic Care Teams Guest Services Manager Relationship Specialty Start Date End Date Sameer Walsh DO PCP - General 09/13/15
--- OUTSIDE RECORDS SUMMARY | 2025-01-25 07:39 | XMS_ITS | Referral Summary ---
Author Organization [facility] Address [address] [place] [address] Care Team Providers Care Truck Assembler Name Role Phone Sameer Walsh DO Primary Care Provider [phone] Encounters Date Type Department Care Team Description 12/23/2024 Telephone [facility] - [facility] ENT [address] Advanced [facility] 11th [place] [address] [place] [address] Claire Sher, from Last 3 Months Allergies No known [...] on file Legal Sex Female 4:08 AM FISH ICER Gender Identity Not on file Sexual Orientation Not on file Last Filed Vital Signs Vital Sign Reading Time Taken Comments Blood Pressure 152/87 11/05/2018 8:10 AM FISH ICER Pulse 71 11/05/2018 8:10 AM FISH ICER Temperature - - Respiratory Rate - - Oxygen Saturation - - Inhaled Oxygen Concentration - - Weight 98.4 kg (217 lb) 11/05/2018 8:10 AM FISH ICER Height 162.6 cm (5' 4 ) 11/05/2018 8:10 AM FISH ICER Body Mass Index 37.25 11/05/2018 8:10 AM FISH ICER Plan of Treatment Not on file Insurance [facility] [employer] [facility] [place]PPO Address: [address] [place] [address] [employer] [place]O Address: [address] [place] [address] [employer] [place]O Address: [address] [place] [address] Care Teams Truck Assembler Relationship Specialty Start Date End Date Sameer Walsh DO PCP - General 01/29/17
--- OUTSIDE RECORDS SUMMARY | 2025-01-25 07:39 | XMS_ITS | Clinical Summary ---
Author Organization [facility] Address [address] [place] [address] Care Team Providers Care Straightedge Machine Operator Helper Name Role Phone Sameer Walsh DO Primary Care Provider [phone]- [phone] Allergies No known active allergies Medications sertraline [...] Type Department Care Team Description 12/23/2024 Telephone Advanced Medicine ([facility]) - [facility] ENT [address] 11th [place] [address] [place] [address] Claire hSer MS from Last 3 Months Surgical History Surgery Date Site/Laterality Comments TONSILLECTOMY Tonsillectomy SPINAL FUSION 01/26/2017 - 02/24/2017 CHOLECYSTECTOMY 10/28/1998 - 10/27/1999 SECTION 03/28/1983 - 04/26/1983 NERVE REPAIR 10/28/2009 - 10/27/2010 left arm Medical History Medical History Date Comments Hx Other Medical 3 Hx Other Medical Gallbladder - Hx Other Medical periformis; Com ments: JNS [...] on file Legal Sex Female 4:08 AM BRICKMASON Gender Identity Not on file Sexual Orientation Not on file Obstetrics History Last Filed Vital Signs Vital Sign Reading Time Taken Comments Blood Pressure 152/87 11/05/2018 8:10 AM BRICKMASON Pulse 71 11/05/2018 8:10 AM BRICKMASON Temperature - - Respiratory Rate - - Oxygen Saturation - - Inhaled Oxygen Concentration - - Weight 98.4 kg (217 lb) 11/05/2018 8:10 AM BRICKMASON Height 162.6 cm (5' 4 ) 11/05/2018 8:10 AM BRICKMASON Body Mass Index 37.25 11/05/2018 8:10 AM BRICKMASON Plan of Treatment Health Maintenance Due Date Last Done Comments Breast Cancer Screening-Mammogram 1960 Cervical Cancer Screening 1960 Colon Cancer Screening-Colonoscopy 1960 Depression Screening 1960 Hepatitis C Screening 1960 DTaP/Tdap/Td Vaccine (1 - Tdap) 1971 Hepatitis B Screening 1978 Regular Well Visit/Exam 18-64 1978 Zoster Vaccine (1 of 2) 2010 Influenza Vaccine (#1) 2024 Pneumococcal vaccine <65 Aged Out No longer eligible based on patient's age to complete this topic Insurance [facility] CHOICE PLUS Member Subscriber Plan / Payer (Ef fective 2018-Present) Name:Radha Grant Relation to Subscriber:Self Name:Radha Grant Payer ID:[id number] (NAIC) Type:[facility] H[facility]/PPO Address: [place] [id number] Care Teams Straightedge Machine Operator Helper Relationship Specialty Start Date End Date Sameer Walsh DO PCP - General 01/29/17
--- OUTSIDE RECORDS SUMMARY | 2025-01-25 07:39 | XMS_ITS | Data Portability ---
Author Organization [facility] Address [address] [place] [place] [address] Assessment Encounter Date Assessment Date Assessment LastModified by Organization Details LastModified Time 10/15/2024 10/15/2024 Annual gynecological exam performed. Patient will come back in a year unless there are new symptoms. [email or web address] Not available 10/15/2024 14:25:04 Plan of Treatment Reminders Order Date Submit Date Provider Last Modified By Organization Details Last Modified Time Details Appointments None recorded. Lab pap, IG + HR HPV - HPV regardless but if HPV is positive need subtyping 16,18/45 2023 024 [facility] (Lab), [address], [place], [address], 5 07:46:25 Referral None recorded. Procedures None [...] Provi tye: Dermo dy, Alina , ANP, FINISHED HARDWARE ERECTOR Colle cted: 10/15 1513 Order ing Locat [...] elial Lesovi borges or Andria yoder ([facility]) . Elect cheri campbell luz marina d by Rosa Mitchell , CT on 025 at 0642 DIRECTOR OF COLLECTIONS AND ARCHIVES ----- ----- ----- ----- ----- ----- ----- [...] as clini cheryl angela nted. Not Available [facility] (Lab) [address], [place], [address], 10/29/2024 07:46:25 Result Notes None recorded. Procedures Surgical History Date Name Laterality Status Provider Name and Address Organization Details Recorded Time 01/27/20 07 procedure on nerve completed [facility] 10/15/2024 14:36:53 07/28/19 99 Cholecystectomy completed [facility] 10/15/2024 14:36:32 04/02/19 83 Caesarean Section completed [facility] 10/15/2024 14:32:28 Imaging Results None recorded. [...] Updated DateTime 10/15/2024 162.56 cm 34.6 kg/m2 33055.5 g 123 mm[Hg] 78 mm[Hg] [facility] 14:29:00 Social History Question Answer Notes LastModified by Organizat ion Details LastModified Time Do You Have An Advance Directive? No [email or web address] Information not available 10/15/2024 What Is Your Level Of Alcohol Consumption? None [email or web address] Information not available 10/15/2024 Are You Blind Or Do You Have Difficulty Seeing? No [email or web address] Information not available 10/15/2024 What Is Your Level Of Caffeine Consumption? Moderate [email or web address] Information not available 10/15/2024 How Much Tobacco Do You Chew? None [email or web address] Information not available 10/15/2024 In The 14 Days Before Symptom Onset, Have You Had Close Contact With A Laboratory-confir med COVID-19 While That Case Was Ill? No [email or web address] Information not available 10/15/2024 In The 14 Days Before Symptom Onset, Have You Had Close Contact With A Person Who Is Under Investigation For COVID-19 While That Person Was Ill? No [email or web address] Information not available 10/15/2024 Have You Been To An Area Known To Be High Risk For COVID-19? No [email or web address] Information not available 10/15/2024 Are You Deaf Or Do You Have Serious Difficulty Hearing? No [email or web address] Information not available 10/15/2024 What Type Of Diet Are You Following? REGULAR [email or web address] Information not available 10/15/2024 What Is The Highest Grade Or Level Of School You Have Completed Or The Highest Degree You Have Received? 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 Yes Information not available 10/15/2024 Do You Use Protection During Sex? No Information not available 10/15/2024 Do You Use Your Seat Belt Or Car Seat Routinely? Yes [email or web address] Information not available 10/15/2024 Do You Have Smoke And Carbon Monoxide Detectors In Your Home? Yes [email or web address] Information not available 10/15/2024 How Much Tobacco Do You Smoke? No [email or web address] Information not available 10/15/2024 Do You Feel Stressed (tense, Restless, Nervous, Or Anxious, Or Unable To Sleep At Night)? [id number] [email or web address] Information not available 10/15/2024 Do You Use Any Illicit Or Recreational Drugs? No [email or web address] Information not available 10/15/2024 Do You Use Sunscreen Routinely? No [email or web address] Information not available 10/15/2024 Have You Used IV Drugs? No [email or web address] Information not available 10/15/2024 Sex: Unknown Functional Status Question Answer Note LastModified by Organization D etails LastModified Time Are you able to walk? YESWOREST [email or web address] Information not available 10/15/2024 What is your exercise level? None [email or web address] Information not available 10/15/2024 Mental Status None recorded. Family History Relationship Description Onset Age of this Age Resolved Age Notes LastModified by Organization Details LastModified Time Brother Heart disease [email or web address] Not available 2023 14:25:20 Sister Malignant tumor [...] SNOMED-CT Code Diagnosis ICD10 Code Diagnosis Note [id number] [facility] [address] [address] 10/15/2024 14:24:31 10/15/2024 14:55:13 Gynecologic examination 64642337 Z01.419 Annual gynecologi ryan exam performed. Patient [...] pt has scheduled 11/03/2024 at [facility] colon cancer screening - PCP to schedule colonoscop y at [facility] (sister has hx colon cancer) DEXA scan- [...] Guarantor Name 10/15/[address] [facility] [id number] Radha Grant [id number] Radah Rudy Notes Date Note Type Note Provider Name and Address Organization Details Recorded Time 10/15/2024 text/html Annual Interventional Physician Post-MenopausalRep orted bypatient.Menopaus al Symptoms:no menopausal symptoms; [...] New patient presents to establish care. Denies TRADING FLOOR OPERATOR concerns.Not sexually active. Sari Dobson [facility] 10/15/2024 16:05:03 OBGyn Episode Ob Episode Information Episode Created Date Number of Fetuses Patient Bloodtype Patient rh Status Prepregnancy Weight lbs Domestic Partner Domestic Partner Phone Father Name Manual Winder Status 10/15/20 24 1 CLOSED Fetus Data First Name Last Name Admitted to NICU Weight (g) Sex Living Outcome Pediatric Complications Fetus ID Race Codes Race Delivery Type 3089.86 8704 M Full Term [address] Primary Rahul Calculation Initial Rahul Date Initial [...] Domestic Partner Domestic Partner Phone Father Name Manual Winder Status 10/15/20 24 1 CLOSED Fetus Data First Name Last Name Admitted to NICU Weight (g) Sex Living Outcome Pediatric Complications Fetus ID Race Codes Race Delivery Type 2579.57 7704 M Full Term [address] Primary Rahul Calculation Initial Rahul Date Initial [...]
== END 2025-01-25 07:36 | disposition home or self-care (01) ==
LOC: ANHIMG 07:37
PROVIDERS: PCP Internal Medicine; Visit Provider Internal Medicine
DX: Z12.31 Encounter for screening mammogram for malignant neoplasm of breast (principal)
CPT/HCPCS: 77063; 77067

== ENCOUNTER 2025-02-18 09:32 | Outpatient (CLI) | payer OTHER, SELFPAY ==
--- OUTSIDE RECORDS SUMMARY | 2025-02-18 10:24 | XMS_ITS | Data Portability ---
Author Organization [facility] Address [address] [place] [address] Assessment Encounter Date Assessment Date Assessment LastModified by Organization Details LastModified Time 10/15/2024 10/15/2024 Annual gynecological exam performed. Patient will come back in a year unless there are new symptoms. [email or web address] Not available 10/15/2024 14:25:04 Plan of Treatment Reminders Order Date Submit Date Provider Last Modified By Organization Details Last Modified Time Details Appointments None recorded. Lab pap, IG + HR HPV - HPV regardless but if HPV is positive need subtyping 16,18/45 2023 024 [facility] (Lab), [address], [place], [address], 5 07:46:25 Referral None recorded. Procedures None recorded. Surgeries None recorded. Imaging None recorded. Medication Orders None recorded. Patient TargetsNo targets recorded. Patient InstructionsNo instructions recorded. Reason for Referral None Reported. Results Created Date Observation Date Name Description Value Unit Range Abnormal Flag Note LastModifiedBy Organization Detail LastModifiedTime 10/15/2010/15/2024 IMAGE GUIDE D PAP AND HPV REGAR DLESS image guided Pap, HPV regardless of Pap result SEE RESULT S BELOW CASE REPOR T: Cytol ogy Gynec ologi ryan Repor t Case: [id number] Autho rimaryn g Provi tye: Dermo dy, Alina , ANP, ABRASIVE GRINDER Colle cted: 10/15 1513 Order ing Locat ion: [place] [facility] Recei shreya: 10/16 0721 First Scree n: Rosa Mitchell, CT Speci men: eHlen mccarthy Pap - Image d, Cervi x STATE MENT OF ADEQU ACY: Satis facto ry for evalu ation Trans forma tion zone compo nent absen t ----- ----- ----- ----- ----- ----- ----- ----- ----- ----- ----- ----- ----- ----- ----- ----- ----- ---- FINAL DIAGN OSIS: Negat jasmin for Intra epith elial Lesovi borges or Andria ydoer ([facility]) . 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 Not Available [facility] (Lab) [address], [place], [address], 10/29/2024 07:46:25 Result Notes None recorded. Procedures Surgical History Date Name Laterality Status Provider Name and Address Organization Details Recorded Time 01/27/20 07 procedure on nerve completed [facility] 10/15/2024 14:36:53 07/28/19 99 Cholecystectomy completed [facility] 10/15/2024 14:36:32 04/02/19 83 Caesarean Section completed [facility] 10/15/2024 14:32:28 Imaging Results [...] Updated DateTime 10/15/2024 162.56 cm 34.6 kg/m2 07353.5 g 123 mm[Hg] 78 mm[Hg] [facility] 14:29:00 Social History Question Answer Notes LastModified by Organizat ion Details LastModified Time Do You Have An Advance Directive? No [email or web address] Information not available 10/15/2024 What Is Your Level Of Alcohol Consumption? None [email or web address] Information not available 10/15/2024 Are You Blind Or Do You Have Difficulty Seeing? No Information not available 10/15/2024 What Is Your Level Of Caffeine Consumption? Moderate [email or web address] Information not available 10/15/2024 How Much Tobacco Do You Chew? None [email or web address] Information not available 10/15/2024 In The 14 Days Before Symptom Onset, Have You Had Close Contact With A Laboratory-confir med COVID-19 While That Case Was Ill? No [email or web address] Information not available 10/15/2024 In The 14 Days Before Symptom Onset, Have You Had Close Contact With A Person Who Is Under Investigation For COVID-19 While That Person Was Ill? No [email or web address] Information not available 10/15/2024 Have You Been To An Area Known To Be High Risk For COVID-19? No [email or web address] Information not available 10/15/2024 Are You Deaf Or Do You Have Serious Difficulty Hearing? No [email or web address] Information not available 10/15/2024 What Type Of Diet Are You Following? REGULAR Information not available 10/15/2024 What Is The Highest Grade Or Level Of School You Have Completed Or The Highest Degree You Have Received? 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 Yes [email or web address] Information not available 10/15/2024 Do You Use Protection During Sex? No [email or web address] Information not available 10/15/2024 Do You Use Your Seat Belt Or Car Seat Routinely? Yes Information not available 10/15/2024 Do You Have Smoke And Carbon Monoxide Detectors In Your Home? Yes [email or web address] Information not available 10/15/2024 How Much Tobacco Do You Smoke? No [email or web address] Information not available 10/15/2024 Do You Feel Stressed (tense, Restless, Nervous, Or Anxious, Or Unable To Sleep At Night)? [id number] [email or web address] Information not available 10/15/2024 Do You Use Any Illicit Or Recreational Drugs? No [email or web address] Information not available 10/15/2024 Do You Use Sunscreen Routinely? No [email or web address] Information not available 10/15/2024 Have You Used IV Drugs? No Information not available 10/15/2024 Sex: Unknown Functional Status Question Answer Note LastModified by Organization D etails LastModified Time Are you able to walk? YESWOREST [email or web address] Information not available 10/15/2024 What is your exercise level? None [email or web address] Information not available 10/15/2024 Mental Status None recorded. Family History Relationship Description Onset Age of this Age Resolved Age Notes LastModified by Organization Details LastModified Time Brother Heart disease [email or web address] Not available 2023 14:25:20 Sister Malignant tumor [...] SNOMED-CT Code Diagnosis ICD10 Code Diagnosis Note [id number] [facility] [address] [address] 10/15/2024 14:24:31 10/15/2024 14:55:13 Gynecologic examination [id number] Z01.419 Annual gynecologi ryan exam performed. Patient [...] email. 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 Denies SIZE MAKER concerns.Not sexually active. Sari Dobson [facility] 10/15/2024 16:05:03 OBGyn Episode Ob Episode Information Episode Created Date Number of Fetuses Patient Bloodtype Patient rh Status Prepregnancy Weight lbs Domestic Partner Domestic Partner Phone Father Name Real Estate Listing Consultant Status 10/15/20 24 1 CLOSED Fetus Data First Name Last Name Admitted to NICU Weight (g) Sex Living Outcome Pediatric Complications Fetus ID Race Codes Race Delivery Type 3089.86 8704 M Full Term [address] Primary Rahul Calculation Initial Rahul Date Initial [...] Domestic Partner Domestic Partner Phone Father Name Real Estate Listing Consultant Status 10/15/20 24 1 CLOSED Fetus Data First Name Last Name Admitted to NICU Weight (g) Sex Living Outcome Pediatric Complications Fetus ID Race Codes Race Delivery Type 2579.57 7704 M Full Term [address] Primary Rahul Calculation Initial Rahul Date Initial [...]
--- OUTSIDE RECORDS SUMMARY | 2025-02-18 10:24 | XMS_ITS | Referral Summary ---
Author Organization [facility] Address [address] [place] [address] Care Team Providers Care Benefits Manager Name Role Phone Danilo Parekh MD Primary Care Provider Encounters Date Type Department Care Team Description 02/17/2025 8:30 AM CDT Office Visit [facility] Primary Care at [address] [address] Dnailo Parekh MD Encounter to establish care with new doctor (Primary Dx); Colon cancer screening; Obstructive sleep apnea; Persistent postural-perceptual dizziness; Class 1 obesity due to excess calories without serious comorbidity with body mass index (BMI) of 31.0 to 31.9 in adult 12/23/2024 Telephone [facility] ([facility]) - [place] [id number] [facility] [address]th [place] [address] [place] [address] Claire Sher MS from Last 3 Months Allergies No known active allergies Medications ibuprofen (ADVIL,MOTRIN) 800 mg tablet Take 1 tablet (800 mg total) by mouth 3 (three) times a day 0 10/03/20 18 Active atorvastatin (LIPITOR) 10 mg tablet Take 1 tablet (10 mg total) by mouth nightly at bedtime Active cholecalcifero l (VITAMIN D-3) 50,000 unit capsule Take 1 capsule (50,000 Units total) by mouth once a week 02/18/20 24 Active Mounjaro 10 mg/0.5 mL pen injector injection Inject 0.5 mL (10 mg total) under the skin 01/15/20 25 Active sertraline (ZOLOFT) 100 mg tablet Take 1 tablet (100 mg total) by mouth daily Active clonazePAM (KlonoPIN) 0.5 mg tabletIndicati ons:Persistent postural-perce ptual dizziness Take 1 tablet (0.5 mg total) by mouth 2 (two) times a day 60 tablet 1 02/18/20 25 Active sertraline (ZOLOFT) 50 mg tablet take 1 tablet by oral route every day 0 0 05/10/20 16 025 Discontinued(Th erapy completed) lisinopril (PRINIVIL,ZEST RIL) 20 mg tablet take 1 tablet by oral route 2 times every day 0 0 05/10/20 16 025 Discontinued( erapy completed) topiramate (TROKENDI XR) 50 mg capsule,extend ed release 24hr take 1 capsule by oral route every day 0 0 05/10/20 16 025 Discontinued( erapy completed) methylPREDNISo lone (MEDROL, RADHA,) 4 mg tablet take by Oral route as directed on box 1 0 07/10/20 16 025 Discontinued( erapy completed) meloxicam (MOBIC) 7.5 mg tablet take 1 tablet by oral route 2 times every day 60 3 08/06/20 16 025 Discontinued( erapy completed) PROAIR HFA 90 mcg/actuation inhaler 11/04/19 19 025 Discontinued( erapy completed) gabapentin (NEURONTIN) 300 mg capsule TAKE 1 CAPSULE BY MOUTH EVERY 8 HOURS 0 10/03/20 18 025 Discontinued( erapy completed) predniSONE (DELTASONE) 20 mg tablet 11/03/19 19 025 Discontinued( erapy completed) sertraline (ZOLOFT) 25 mg tablet TAKE 1 TABLET BY ORAL ROUTE EVERY DAY WITH A 50MG TO EQUAL 75MG 0 09/15/20 18 025 Discontinued(Th erapy completed) amoxicillin (AMOXIL) 875 mg tablet Take 1 tablet (875 mg total) by mouth 2 (two) times a day 02/17/20 25 025 Discontinued(Th erapy completed) dexAMETHasone (DECADRON) 4 mg tablet Take 1 tablet (4 mg total) by mouth 08/31/20 24 025 Discontinued Active Problems Problem Noted Date Diagnosed Date Class 1 obesity due to exces s calories without serious comorbidity with body mass index (BMI) of 31.0 to 31.9 in adult 02/17/2025 Persistent postural-perceptual dizziness 025 Other seborrheic keratosis 09/13/2015 Melanocytic nevus 09/13/2015 Other hypertrophic disorders of the skin 015 Other melanin hyperpigmentation 09/13/2015 Chronic rhinitis 05/13/2013 Exercise-induced bronchospasm 05/13/2013 Obstructive sleep apnea 05/13/2013 Immunizations Immunization Administration Dates Next Due Tdap 10/28/2018,12/06/2013 Social History Tobacco Use Types Packs/Day Years Used Date Smoking Tobacco: Never Smokeless Tobacco: Never Alcohol Use Standard Drinks/Week Comments No 0 (1 standard drink = 0.6 oz pur e alcohol) AUDIT-C Answer Date Recorded Q1: How often do you have a drink containing alcohol? Never 02/17/2025 Q2: How many drinks containi ng alcohol do you have on a typical day when you are drinking? Patient does not drink Q3: How often do you have si x or more drinks on one occasion? 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03 02/17/2025 8:35 AM CDT Plan of Treatment Not on file Procedures Procedure Name Priority Date/Time Associated Diagnosis Comments MAMMOGRAPHY Routine 01/25/2025 4:26 PM CDT from Last 3 Months Results * MAMMOGRAPHY (01/25/2025 4:26 PM CDT) Mammography Normal Historical Provider HEALTH MAINTENANCE Final Result from Last 3 Months Insurance [facility] [employer] [facility] H[employer]PPO Address: [facility] [id number] [place] [id number] [facility] [employer] [facility] [facility] [employer]PPO Address: [place] [id number] [place] [id number] [facility] [employer] [facility] H[employer]/PPO Address: [facility] [address] [place] [address] Care Teams Benefits Manager Relationship Specialty Start Date End Date Danilo Parekh MD [id number] [address] PCP - General Family Medicine 02/17/25
--- OUTSIDE RECORDS SUMMARY | 2025-02-18 10:24 | XMS_ITS | Continuity of Care Document ---
Author Organization [facility] Address [address] [place] [address] Phone Care Team Providers Care Starbucks Clerk Name Role Phone Parker OD, Alvin Unavailable Unavailable Advance Directives Directive Yes / No Effective Date File Name No Information Encounters Encounter Description Practice Location Reason(s) For Visit Diagnoses Date Provider Providers Copied on Encounter [facility], [address], [place], [place], [id number], [place] tel:[phone] [facility] No Information Telly-0 [phone] Parker OD Alvin. [address] , [address], [place], [address], [place]. tel:[phone] Family History Family Member Type Diagnosis Age [...]
--- OUTSIDE RECORDS SUMMARY | 2025-02-18 10:24 | XMS_ITS | Encounter Summary ---
Author Organization [facility] Address [address] [place] [address] Care Team Providers Care Database Marketing Specialist Name Role Phone Danilo Parekh MD Primary Care Provider [phone] Reason for Referral * Consultation (Urgent) - Authorized Specialty Diagnoses / Procedures Referred By Guy cottrell Referred To Contact Neurology Diagnoses Persistent postural-perceptual dizziness Danilo Parekh MD [address] [facility] [address] [place] [address] Phone: tel: fax: [facility] Neurology [address] [place] [phone] Phone: tel: fax: Referral ID Status Reason Start Date Expiration Date Visits Requested Visits Authorized [id number] Authorized Specialty Services Required 02/17/2025 03/19/2026 1 1 Question Answer Please select the performing region: [facility] [[id number]] Please select the performing department: [facility] [[id number]] # of visits: 1 * Consultation (Routine) - Authorized Specialty Diagnoses / Procedures Referred By Guy cottrell Referred To Contact Gastroenterology Diagnoses Colon cancer screening Danilo Parekh MD [address] [facility] [address] [place] [address] Phone: tel: fax: Malcolm Sauceda MD [address] [place] [address] Phone: tel: fax: Referral ID Status Reason Start Date Expiration Date Visits Requested Visits Authorized [id number] Authorized Specialty Services Required 02/17/2025 03/19/2026 1 1 Question Answer Process Instructions: THE AMBULATORY REFERRAL TO GASTROENTEROLOGY IS NOT AN ORDER FOR A PROCEDURE (I.E. EGD, COLONOSCOPY.) USE THE DIRECT SCHEDULING CASE REQUEST ORDER (GI50) IF THE PATIENT REQUIRES A PROCEDURE TO BE PERFORMED. Please select the performing region: External Order [171] To provider: MALCOLM SAUCEDA [[id number]] # of visits: 1 Reason for Visit * Reason Comments getting established Having balance issue s. Mainly Standing and when she walks she sways. She has seen ENT and was referred to Neuro but they could not accommodate her. She is schedule for [facility] in [place] on March 04. Currently on STD and is wanting to find out answers so she can return to work. Encounter Details Date Type Department Care Team (Late st Contact Info) Description 02/17/2025 8:30 AM CDT Office Visit [facility] Primary Care at [address] [address] Danilo Parekh MD [address] [place] [address] [address] [place] [address] Encounter to establish care with new doctor (Primary Dx); Colon cancer screening; Obstructive sleep apnea; Persistent postural-perceptual dizziness; Class 1 obesity due to excess calories without serious comorbidity with body mass index (BMI) of 31.0 to 31.9 in adult Social History Tobacco Use Types Packs/Day Years [...] on file 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 Never 02/17/2025 9:14 AM CDT Danilo Parekh MD Q2: How many drinks containing alcohol do you have on a typical day when you are drinking? Patient does not drink 02/17/2025 9:14 AM CDT Danilo Parekh MD Q3: How often do you have six or more drinks on one occasion? Never 02/17/2025 9:14 AM CDT Danilo Parekh MD documented as of this encounter Patient Instructions * Patient Instructions* Danilo Parekh MD - 02/17/2025 8:30 AM CDT VISIT SUMMARY: Today, we discussed your ongoing balance problems, which have been affecting you since October. We reviewed your past evaluations and discussed your upcoming appointments. We also addressed your diabetes management and the side effect of diarrhea from your medication. YOUR PLAN: -BALANCE DISORDER: You have been experiencing a chronic balance disorder since October, feeling like you are 'walking on a boat.' This has significantly impacted your daily activities. We are considering various causes, including neuromuscular diseases like Parkinson's. We will [facility], refer you to a local neurologist, and prescribe a long-acting benzodiazepine to help with dizziness. Please monitor your response to the medication and letus know if it helps. -DIABETES MELLITUS, TYPE 2: You have type 2 diabetes, which is being managed with Mounjaro. This medication has helped you lose 56 pounds and has resolved your high blood pressure. Continue taking Mounjaro as prescribed. -DIARRHEA DUE TO MEDICATION: You are experiencing diarrhea, which is a known side effect of Mounjaro. We will monitor this symptom to see if it persists or worsens. INSTRUCTIONS: Please follow up with the local neurologist once the appointment is scheduled. Continue taking Mounjaro for your diabetes management and monitor your response to the new medication for dizziness. Report any changes or concerns to us. Thanks for coming in today! My medical assistants and I are thankful you have trusted us with your care, and hope that you received EXCELLENT care today! Please do not hesitate to call if you have any questions or concerns at [phone]. You may receive a phone call, text, MYCHART message, or e-mail asking about your care today. We would love to hear your feedback on how EXCELLENT your care wastoday! Wishing you better health, always. Dr. Parekh documented in this encounter Ordered Prescriptions Prescription Sig Dispense Quantity Refills Last Filled Start Date End Date clonazePAM (KlonoPIN) 0.5 mg tabletIndications:P ersistent postural-perceptual dizziness Take 1 tablet (0.5 mg total) by mouth 2 (two) times a day 60 tablet 1 02/17/2025 documented in this encounter Plan of Treatment Scheduled Referrals Name Type Priority Associated Diagnoses Order Schedule Ambulatory referral to Gastroenterology Outpatient Referral Routine Colon cancer screening 1 Occurrences starting 02/17/2025 until 02/17/2026 Ambulatory referral to Neurology Outpatient Referral Urgent Persistent Postural-Perceptu al Dizziness Expected: 03/03/2025 (Approximate), Expires: 02/17/2026 documented as of this encounter Visit Diagnoses Diagnosis Encounter to establish care with new doctor- Primary Colon cancer screening Special screening for malignant neoplasms, colon Obstructive sleep apnea Obstructive sleep apnea (adult) (pediatric) Persistent postural-perceptual dizziness Class 1 obesity due to excess calories without serious comorbidity with body mass index (BMI) of 31.0 to 31.9 in adult documented in this encounter Discontinued Medications Medication Sig Discontinue Reason Start Date End Da te sertraline (ZOLOFT) 50 mg tablet take 1 tablet by oral route every day Therapy completed 05/10/2016 02/17/2025 lisinopril (PRINIVIL,ZESTRIL) 20 mg tablet take 1 tablet by oral route 2 times every day Therapy completed 05/10/2016 02/17/2025 topiramate (TROKENDI XR) 50 mg capsule,extended release 24hr take 1 capsule by oral route every day Therapy completed 05/10/2016 02/17/2025 methylPREDNISolone (MEDROL, RADHA,) 4 mg tablet take by Oral route as directed on box Therapy completed 07/10/2016 02/17/2025 meloxicam (MOBIC) 7.5 mg tablet take 1 tablet by oral route 2 times every day Therapy completed 08/06/2016 02/17/2025 PROAIR HFA 90 mcg/actuation inhaler Therapy completed 11/04/2018 02/18/20 gabapentin (NEURONTIN) 300 mg capsule TAKE 1 CAPSULE BY MOUTH EVERY 8 HOURS Therapy completed 10/03/2018 02/17/2025 predniSONE (DELTASONE) 20 mg tablet Therapy completed 11/03/2018 02/17/2025 sertraline (ZOLOFT) 25 mg tablet TAKE 1 TABLET BY ORAL ROUTE EVERY DAY WITH A 50MG TO EQUAL 75MG Therapy completed 09/15/2018 02/17/2025 amoxicillin (AMOXIL) 875 mg tablet Take 1 tablet (875 mg total) by mouth 2 (two) times a day Therapy completed 02/16/2025 02/17/2025 dexAMETHasone (DECADRON) 4 mg tablet Take 1 tablet (4 mg total) by mouth 08/31/2024 02/17/2025 documented as of this encounter Historical Medications * This list may reflect changes made after this encounter. sertraline (ZOLOFT) 100 mg tablet Take 1 tablet (100 mg total) by mouth daily Mounjaro 10 mg/0.5 mL pen injector injection Inject 0.5 mL (10 mg total) under the skin 01/14/2025 cholecalciferol (VITAMIN D-3) 50,000 unit capsule Take 1 capsule (50,000 Units total) by mouth once a week 02/18/2024 atorvastatin (LIPITOR) 10 mg tablet Take 1 tablet (10 mg total) by mouth nightly at bedtime dexAMETHasone (DECADRON) 4 mg tablet Take 1 tablet (4 mg total) by mouth 08/31/2024 02/17/2025 amoxicillin (AMOXIL) 875 mg tablet Take 1 tablet (875 mg total) by mouth 2 (two) times a day 02/16/2025 02/17/2025 added in this encounter Care Teams Database Marketing Specialist Relationship Specialty Start Date End Date Danilo Parekh MD [address] [address] PCP - General Family Medicine 02/17/25 documented as of this encounter
--- OUTSIDE RECORDS SUMMARY | 2025-02-18 10:24 | XMS_ITS | Clinical Summary ---
Author Organization [facility] Address [address] [place] [address] Care Team Providers Care Mixing Machine Feeder Name Role Phone Danilo Parekh MD Primary Care Provider Allergies No known active allergies Medications ibuprofen [...] TO EQUAL 75MG 0 09/15/20 18 025 Discontinued( erapy completed) amoxicillin (AMOXIL) 875 mg tablet Take 1 tablet (875 mg total) by mouth 2 (two) times a day 02/17/20 25 025 Discontinued( erapy completed) dexAMETHasone (DECADRON) 4 mg tablet [...] Exercise-induced bronchospasm 05/13/2013 Obstructive sleep apnea 05/13/2013 Encounters Date Type Department Care Team Description 02/17/2025 8:30 AM CDT Office Visit [facility] Primary Care at [address] [address] Danilo Parekh MD Encounter to establish care with new doctor (Primary Dx); Colon cancer screening; Obstructive sleep apnea; Persistent postural-perceptual dizziness; Class 1 obesity due to excess calories without serious comorbidity with body mass index (BMI) of 31.0 to 31.9 in adult 12/23/2024 Telephone [facility] Advanced [facility] ([facility]) - [facility] ENT [address] [facility] [address] [place] [address] [place] [address] Claire Sher MS from Last 3 Months Immunizations Immunization Administration Dates Next Due Tdap 10/28/2018,12/06/2013 Surgical History Surgery Date Site/Laterality Comments TONSILLECTOMY Tonsillectomy SPINAL FUSION 01/26/2017 - 02/24/2017 lumbar, L4-6 CHOLECYSTECTOMY 10/28/1998 - 10/27/1999 SECTION 03/28/1983 - 04/26/1983 NERVE REPAIR 10/28/2009 - 10/27/2010 left arm Medical History Medical History Date Comments Hx Other Medical 04-02-8 3 Hx Other Medical Gallbladder 10- 99 Hx Other Medical periformis; Com ments: JNS 05/10/2016 - Depression Hypertension Family History Medical History Relation Name Comments Diabetes type II Brother Heart disease Brother quadruple bypa ss Heart attack Father Breast cancer Maternal Grandmother Esophageal cancer Mother Cancer Other 1 Family history of Cancer, unknown; Cancer Other 2 Family history of Cancer; Heart disease Other 3 Family history of Heart problems; No Known Problems Paternal Grandfather No Known Problems Paternal Grandmother Anal Cancer Sister 1 HPV Ataxia Sister 2 Non-Hodgkin's Lymphoma Sister 2 No Known Problems Sister 3 Blood Clot Neg Hx Hypertension Neg Hx Relation Name Status Comments Brother Alive Father Maternal Grandfather Maternal Grandmother Mother Other 1 Other 2 Other 3 Paternal Grandfather Paternal Grandmother Sister 1 Alive Sister 2 Alive Sister 3 Alive Social History Tobacco Use Types Packs/Day Years [...] on file 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 Gender Identity Not on file Sexual Orientation Not on file 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 Not on file Not on f ile Obstetrics History Last Filed Vital Signs Vital [...] 02/17/2025 8:35 AM CDT Plan of Treatment Health Maintenance Due Date Last Done Comments Colon Cancer Screening-Colonoscopy 1960 Hepatitis C Screening 1960 Hepatitis B Screening 1978 Regular Well Visit/Exam 18-64 1978 Zoster Vaccine (1 of 2) 2010 Influenza Vaccine (Season Ended) 2025 Cervical Cancer Screening 10/15/2025 10/15/2024 Breast Cancer Screening-Mammogram 01/25/2026 01/25/2025 Depression Screening 02/17/2026 02/17/2025 DTaP/Tdap/Td Vaccine (3 - Td or Tdap) 10/28/2028 10/28/2018, 12/06/2013 Pneumococcal vaccine <65 Aged Out No longer eligible based on patient's age to complete this topic Procedures Procedure Name Priority Date/Time Associated Diagnosis Comments MAMMOGRAPHY Routine 01/25/2025 4:26 PM CDT from Last 3 Months Results * MAMMOGRAPHY (01/25/2025 4:26 PM CDT) Mammography Normal us Historical Provider HEALTH MAINTENANCE Final Result from Last 3 Months Insurance [facility] CHOICE PLUS Care Teams Mixing Machine Feeder Relationship Specialty Start Date End Date Danilo Parekh MD [address] [facility] [address] [place] [address] PCP - General Family Medicine 02/17/25
--- OUTSIDE RECORDS SUMMARY | 2025-02-18 10:24 | XMS_ITS | Clinical Summary ---
Author Organization [facility] Address [address] [place] [address] Care Team Providers Care Contracts Law Professor Name Role Phone Sameer Walsh DO Primary Care Provider Source Comments [facility],non-owned Affiliates and Associated Physician Practices is amultiple site organization consisting of ambulatory clinics and hospital sitesin [place], [place], [place] and [place]. This disclosure is being madepursuant to the Care Everywhere program and may not contain all information available regarding this patient. Last updated 18.[facility] Allergies No known active allergies Medications * Be aware that medications may not be up to date on this document. Alwaysverify current medications with the patient. topiramate (TOPAMAX) 50 MG tablet Take 50 mg by mouth BID. 60 tablet 3 6 Active atorvastatin (Lipitor) 10 MG tablet Take 1 (one) tablet by mouth 5 Active Cholecalcifero l (vitamin D3) 1.25 MG (92601 UT) capsule Take 1 (one) capsule by mouth 4 Active dexAMETHasone (Decadron) 4 MG tablet PLEASE SEE ATTACHED FOR DETAILED DIRECTIONS 4 Active ibuprofen (Motrin) 800 MG tablet Take 1 (one) tablet by mouth every 6 hours 4 Active sertraline (Zoloft) 100 MG tablet Take 1 (one) tablet by mouth at bedtime 5 Active Mounjaro 10 MG/0.5ML injection INJECT 1 PEN SUBCUTANEOUSLY ONCE A WEEK 5 Active Active Problems Problem Noted Date Diagnosed Date Melanocytic nevus 09/13/2015 Other melanin hyperpigmentation 09/13/2015 Inflamed seborrheic keratosis 09/13/2015 Other seborrheic keratosis 09/13/2015 Other hypertrophic disorders of the skin 015 Exercise-induced bronchospasm 05/13/2013 Chronic rhinitis 05/13/2013 Obstructive sleep apnea 05/13/2013 Encounters Date Type Department Care Team Description 02/01/2025 Orders Only [facility] - Family Medicine [address] [place] [address], [place] [address] Saravanan Miller MD Vertigo 01/27/2025 1:45 PM CDT Office Visit [facility] - Family Medicine [address] [place] [phone] Saravanan Miller MD Vertigo (Primary Dx) 01/27/2025 Travel from Last 3 Months Family History Medical History Relation Name Comments Heart Disease Father Status: Deceas ed Cancer - Skin, Melanoma Mother Stat us: Allergy (Severe) Other Son is oxana rgic to shellfish Asthma Other Both sons None Known Sister Migraines Status: Alive Relation Name Status Comments Father Mother Other Sister Migraines Social History Tobacco Use Types Packs/Day Years Used Date Smoking Tobacco: Never Tobacco Cessation:Counseling Given: Not Answered Alcohol Use Standard Drinks/Week Comments No 0 (1 standard drink = 0.6 oz pur e alcohol) PHQ-2 Answer Date Recorded Patient Health Questionnaire-2 Score 0 01/27/2025 Comments Unknown Sex and Gender Information Value Date Recorded Sex Assigned at Not on file 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 Gender Identity Not on file Sexual Orientation Not on file Last Filed Vital Signs Vital Sign Reading Time Taken Comments Blood Pressure 127/86 01/27/2025 1:23 PM CDT Pulse 97 01/27/2025 1:23 PM CDT Temperature 36.4 C (97.6 F) 05/07/2016 10:55 AM CDT Respiratory Rate 18 05/07/2016 10:55 AM CDT Oxygen Saturation 98% 01/27/2025 1:23 PM CDT Inhaled Oxygen Concentration - - Weight 84.4 kg (186 lb) 01/27/2025 1:23 PM CDT Height 162.6 cm (5' 4 ) 05/07/2016 10:55 AM CDT Body Mass Index 31.93 05/07/2016 10:55 AM CDT Plan of Treatment Health Maintenance Due Date Last Done Comments COLOGUARD (AGES 45-75) - COL ON CA SCREENING 1960 COLON MONITORING 1960 COLONOSCOPY - COLON CA SCREENING 1960 CT COLONOGRAPHY - COLON CA SCREENING 1960 Colorectal Cancer Screening 1960 FIT - COLON CA SCREENING 1960 FLEX SIG - COLON CA SCREENING 1960 MAMMOGRAM 1960 HIV SCREENING 1975 HEPATITIS C SCREENING 05/05/1978 DTAP/TDAP/TD VACCINES (1 - Tdap) 1979 PNEUMOCOCCAL VACCINE 50+ (1 of 1 - PCV) 2010 ZOSTER VACCINE (1 of 2) 2010 COVID-19 VACCINE ( - 2023-2 5 season) 2024 INFLUENZA VACCINE (Season Ended) 2025 PAP SMEAR 10/15/2027 10/15/2024 Respiratory Syncytial Virus (RSV) Vaccine Pt: or over 60 yrs (1 - 1-dose 75+ series) 2035 DEPRESSION SCREENING Completed 01/27/2025 HEPATITIS B VACCINE Aged Out No longe [...] patient's age to complete this topic Insurance [facility] Care Teams Contracts Law Professor Relationship Specialty Start Date End Date Sameer Walsh DO PCP - General 09/13/15
--- OUTSIDE RECORDS SUMMARY | 2025-02-18 10:24 | XMS_ITS | CONTINUITY OF CARE DOCUMENT ---
Author Name jaquelin hammer Address Unknown Organization [facility] Office Address [address] [place] [address] [address] [place] [address] Phone [phone] Care Team Providers Care Xray Tech Name Role Phone Susi Manzanares MD Unavailable Susi Manzanares MD Unavailable INSURANCE PROVIDERS Payer name Policy type / Coverage type [place] red republican ID [facility] [id number] Other [id number]
[2025-02-18 20:22] LABS: Syphilis IgG/IgM Antibody Negative (Negative)
[2025-02-18 21:14] LABS: Folic Acid 7.4 ng/mL (2.76->20)
== END 2025-02-18 09:33 | disposition home or self-care (01) ==
LOC: ANHGOSHLAB 09:33
PROVIDERS: PCP Internal Medicine; Visit Provider Internal Medicine
DX: R27.0 Ataxia, unspecified (principal); I45.10 Unspecified right bundle-branch block
CPT/HCPCS: 36415; 82607; 82746; 82784; 83516; 86038; 86039; 86593

== ENCOUNTER 2025-03-02 09:14 | Outpatient (CLI) | payer OTHER, SELFPAY ==
--- OUTSIDE RECORDS SUMMARY | 2025-03-02 09:44 | XMS_ITS | Data Portability ---
Author Organization [facility] Address [address] [place] [address] Assessment Encounter Date Assessment Date Assessment LastModified by Organization Details LastModified Time 10/15/2024 10/15/2024 Annual gynecological exam performed. Patient will come back in a year unless there are new symptoms. [email or web address] Not available 10/15/2024 14:25:04 Plan of Treatment Reminders Order Date Submit Date Provider Last Modified By Organization Details Last Modified Time Details Appointments None recorded. Lab pap, IG + HR HPV - HPV regardless but if HPV is positive need subtyping 16,18/45 2023 024 [facility] (Lab), [address], [place], [address], 5 07:46:25 Referral None recorded. Procedures None [...] Provi tye: Dermo dy, Alina , ANP, MAINTENANCE DEPARTMENT MANAGER Colle cted: 10/15 1513 Order ing Locat [...] epith elial Lesovi borges or Andria yoder ([facility]) . Elect cheri campbell luz marina d by Rosa Mitchell , CT on 025 at 0642 MANAGER APPLICATION ----- ----- ----- ----- ----- ----- ----- [...] as clini cheryl angela nted. Not Available [facility] (Lab) [address], [place], [address], 10/29/2024 07:46:25 Result Notes None recorded. Procedures Surgical History Date Name Laterality Status Provider Name and Address Organization Details Recorded Time 01/27/20 07 procedure on nerve completed [facility] 10/15/2024 14:36:53 07/28/19 99 Cholecystectomy completed [facility] 10/15/2024 14:36:32 04/02/19 83 Caesarean Section completed [facility] 10/15/2024 14:32:28 Imaging Results None recorded. [...] Updated DateTime 10/15/2024 162.56 cm 34.6 kg/m2 59443.5 g 123 mm[Hg] 78 mm[Hg] [facility] 14:29:00 Social History Question Answer Notes LastModified by Organizat ion Details LastModified Time Do You Have An Advance Directive? No [email or web address] Information not available 10/15/2024 What Is Your Level Of Alcohol Consumption? None [email or web address] Information not available 10/15/2024 Are You Blind Or Do You Have Difficulty Seeing? No [email or web address] Information not available 10/15/2024 What Is Your Level Of Caffeine Consumption? Moderate Information not available 10/15/2024 How Much Tobacco Do You Chew? None [email or web address] Information not available 10/15/2024 In The 14 Days Before Symptom Onset, Have You Had Close Contact With A Laboratory-confir med COVID-19 While That Case Was Ill? No [email or web address] Information not available 10/15/2024 In The 14 Days Before Symptom Onset, Have You Had Close Contact With A Person Who Is Under Investigation For COVID-19 While That Person Was Ill? No [email or web address] Information not available 10/15/2024 Have You Been To An Area Known To Be High Risk For COVID-19? No [email or web address] Information not available 10/15/2024 Are You Deaf Or Do You Have Serious Difficulty Hearing? No [email or web address] Information not available 10/15/2024 What Type Of Diet Are You Following? REGULAR [email or web address] Information not available 10/15/2024 What Is The Highest Grade Or Level Of School You Have Completed Or The Highest Degree You Have Received? 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 Yes Information not available 10/15/2024 Do You Use Protection During Sex? No Information not available 10/15/2024 Do You Use Your Seat Belt Or Car Seat Routinely? Yes [email or web address] Information not available 10/15/2024 Do You Have Smoke And Carbon Monoxide Detectors In Your Home? Yes [email or web address] Information not available 10/15/2024 How Much Tobacco Do You Smoke? No [email or web address] Information not available 10/15/2024 Do You Feel Stressed (tense, Restless, Nervous, Or Anxious, Or Unable To Sleep At Night)? [id number] [email or web address] Information not available 10/15/2024 Do You Use Any Illicit Or Recreational Drugs? No [email or web address] Information not available 10/15/2024 Do You Use Sunscreen Routinely? No [email or web address] Information not available 10/15/2024 Have You Used IV Drugs? No [email or web address] Information not available 10/15/2024 Sex: Unknown Functional Status Question Answer Note LastModified by Organization D etails LastModified Time Are you able to walk? YESWOREST [email or web address] Information not available 10/15/2024 What is your exercise level? None [email or web address] Information not available 10/15/2024 Mental Status None recorded. Family History Relationship Description Onset Age of this Age Resolved Age Notes LastModified by Organization Details LastModified Time Brother Heart disease Not available 2023 14:25:20 Sister Malignant tumor of colon 68 [email or web address] Not available 2023 14:42:00 Medical History Condition Response Allergies (Food, seasonal, environmental ) N Other N Drug/Latex Allergies/Reactions N Blood Transfusion N Breast Cancer N Dermatologic Disorders N Lung Disease N Defects or Inherited Disease N Breast Problem N Gestational Diabetes N Hematologic disorders N Anesthesia Complications N History of STI N Deep Vein Thrombosis N Polycystic ovary syndrome N Anxiety Disorder N Autoimmune disease N Arthritis N Polyps N Infertility N Acid Reflux (GERD) N History of abnormal pap N Cancer N Varicosities N Stroke N Neurologic/Epilepsy N Endometriosis N High Cholesterol N Fibromyalgia N Headaches N Kidney Disease N Heart Problems N Thyroid Problems N Kidney or Bladder Problems N GI Problems N Eating Disorder [...] SNOMED-CT Code Diagnosis ICD10 Code Diagnosis Note [id number] Maikol Fung MD [place] [address] [address] 10/15/2024 14:24:31 10/15/2024 14:55:13 Gynecologic examination [id number] Z01.419 Annual gynecologi ryan exam performed. Patient [...] email. mammogram- pt has scheduled 11/03/2024 at [facility] colon cancer screening - PCP to schedule colonoscop y at [facility] (sister has hx colon cancer) [...] [place] Member ID Guarantor Name 10/15/2024 1 [facility] [id number] Radha Grant [id number] Radha Rudy Notes Date Note Type Note Provider Name and Address Organization Details Recorded Time 10/15/2024 text/html Annual Public Address Servicer Post-MenopausalRep orted bypatient.Menopaus al Symptoms:no menopausal symptoms; [...] New patient presents to establish care. Denies PACK OUT OPERATOR concerns.Not sexually active. Sari Dobson [facility] 10/15/2024 16:05:03 OBGyn Episode Ob Episode Information Episode Created Date Number of Fetuses Patient Bloodtype Patient rh Status Prepregnancy Weight lbs Domestic Partner Domestic Partner Phone Father Name Bean Sprout Laborer Status 10/15/20 24 1 CLOSED Fetus Data First Name Last Name Admitted to NICU Weight (g) Sex Living Outcome Pediatric Complications Fetus ID Race Codes Race Delivery Type 3089.86 8704 M Full Term 34790 Primary Rahul Calculation Initial Rahul Date Initial [...] Domestic Partner Domestic Partner Phone Father Name Bean Sprout Laborer Status 10/15/20 24 1 CLOSED Fetus Data First Name Last Name Admitted to NICU Weight (g) Sex Living Outcome Pediatric Complications Fetus ID Race Codes Race Delivery Type 2579.57 7704 M Full Term 55563 Primary Rahul Calculation Initial Rahul Date Initial [...]
--- OUTSIDE RECORDS SUMMARY | 2025-03-02 09:44 | XMS_ITS | Clinical Summary ---
Author Organization [facility] Address [address] [place] [address] Care Team Providers Care Emt B Name Role Phone Danilo Parekh MD Primary [...] Encounters Date Type Department Care Team Description 02/22/2025 Results Follow-Up [facility] Primary Care at [address] [phone] Danilo Parekh MD 02/17/2025 8:30 AM CDT Office Visit [facility] Primary Care at [address] [phone] Danilo Parekh MD Encounter to establish care with new doctor (Primary Dx); Colon cancer screening; Obstructive sleep apnea; Persistent postural-perceptual dizziness; Class 1 obesity due to excess calories without serious comorbidity with body mass index (BMI) of 31.0 to 31.9 in adult 12/23/2024 [facility] Medicine ([facility]) - [facility] ENT [address] 11th [place] [address] [place] [address] Claire Sher MS from Last 3 Months Immunizations Immunization Administration Dates Next Due Tdap 10/28/2018,12/06/2013 Surgical History Surgery Date Site/Laterality Comments TONSILLECTOMY Tonsillectomy SPINAL FUSION 01/26/2017 - 02/24/2017 lumbar, L4-6 CHOLECYSTECTOMY 10/28/1998 - 10/27/1999 SECTION 03/28/1983 - 04/26/1983 NERVE REPAIR 10/28/2009 - 10/27/2010 left arm Medical History Medical History Date Comments Hx Other Medical 6-6-8 3 Hx Other Medical Gallbladder 10- 99 [...] on file 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
--- OUTSIDE RECORDS SUMMARY | 2025-03-02 09:44 | XMS_ITS | Clinical Summary ---
Author Organization [facility] Address [address] [place] [address] Care Team Providers Care Tool Repairer Bench Name Role Phone Sameer Walsh DO Primary Care Provider Source Comments [facility],non-owned Affiliates and Associated Physician Practices is amultiple site organization consisting of ambulatory clinics and hospital sitesin [place], [place], [place] and [place]. This disclosure is being madepursuant to the Care Everywhere program and may not contain all information available regarding this patient. Last updated 18.[facility] Allergies No known active allergies Medications * Be aware that medications may not be up to date on this document. Alwaysverify current medications with the patient. topiramate (TOPAMAX) 50 MG tablet Take 50 mg by mouth BID. 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 Care Teams Tool Repairer Bench Relationship Specialty Start Date End Date Sameer Walsh DO PCP - General 09/13/15
--- OUTSIDE RECORDS SUMMARY | 2025-03-02 09:45 | XMS_ITS | CONTINUITY OF CARE DOCUMENT ---
Author Name jaquelin hammer Address Unknown Organization [facility] Address [address] [place] [address] [address] [place] [address] Phone [phone] Care Team Providers Care Director Of Safety And Security Name Role Phone Susi Manzanares MD Unavailable [phone] Susi Manzanares MD Unavailable INSURANCE PROVIDERS Payer name Policy type / Coverage type [place] red democrat ID [facility] [id number] Other [id number]
--- OUTSIDE RECORDS SUMMARY | 2025-03-02 09:45 | XMS_ITS | Referral Summary ---
Author Organization [facility] Address [address] [place] [address] Care Team Providers Care Blast Furnace Checker Name Role Phone Danilo Parekh MD Primary Care Provider Encounters Date Type Department Care Team Description 02/22/2025 Results Follow-Up [facility] Primary Care at [address] [phone] Danilo Parekh MD 02/17/2025 8:30 AM CDT Office Visit [facility] Primary Care at [address] [phone] Danilo Parekh MD Encounter to establish care with new doctor (Primary Dx); Colon cancer screening; Obstructive sleep apnea; Persistent postural-perceptual dizziness; Class 1 obesity due to excess calories without serious comorbidity with body mass index (BMI) of 31.0 to 31.9 in adult 12/23/2024 [facility] ([facility]) - [facility] ENT [address] [facility] 11th [place] [address] [place] [address] Claire Sher MS from Last [...] 0 05/10/20 16 025 Discontinued( erapy completed) lisinopril (PRINIVIL,ZEST RIL) 20 mg [...] on file 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 Gender Identity Not on file Sexual Orientation Not on file 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
--- OUTSIDE RECORDS SUMMARY | 2025-03-02 09:45 | XMS_ITS | Continuity of Care Document ---
Author Organization [facility] Address [address] [place] [address] Phone Care Team Providers Care Binder Cutter Name Role Phone Parker OD, Alvin Unavailable Unavailable Advance Directives Directive Yes / No Effective Date File Name No Information Encounters Encounter Description Practice Location Reason(s) For Visit Diagnoses Date Provider Providers Copied on Encounter [facility], [address], [place], [place], [id number], [place] tel:[phone] [facility] No Information Telly-0 [phone] Parker OD Alvin. [address], [place], [address], [place]. tel:[phone] Family History Family Member Type Diagnosis Age At Onset No Information Payers Payer name Insurance type Covered republican ID Authoriza tion(s) No Information Social History [...]
--- OUTSIDE RECORDS SUMMARY | 2025-03-02 09:45 | XMS_ITS | Encounter Summary ---
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
[2025-03-05 14:18] LABS: Immunoglobulin A 341 mg/dL (70-320); TTG IGA AB <1.0 U/mL
== END 2025-03-02 09:15 | disposition home or self-care (01) ==
LOC: ANHGOSHLAB 09:15
PROVIDERS: PCP Internal Medicine; Visit Provider Internal Medicine
DX: R27.0 Ataxia, unspecified (principal); I45.10 Unspecified right bundle-branch block
CPT/HCPCS: 36415; 82784; 86364